=== PATIENT | male | born 1940 | race Caucasian/White ===

== ENCOUNTER 2019-02-02 13:20 | Emergency (ER) | payer MEDICARE ==
[~2019-02-02] VITALS: Ht 177.8 cm; Wt 78.6 kg
[2019-02-02] MEDS ORDERED: albuterol 2.5 MG/3 ML nebule CONTNEB PRN (13:35)
[2019-02-02] MEDS ORDERED: methylPREDNISolone sod succ 125mg/2ml vial IV ONE (13:35)
[2019-02-02] MEDS ORDERED: normal saline 1000ML IV soln IVB ONE (13:35)
[2019-02-02 13:56] LABS: BASOPHILS % (AUTO) 0.3 % (0-1); EOSINOPHILS % (AUTO) 0.9 % (0-6); HEMATOCRIT 39.6 % (42.0-52.0); HEMOGLOBIN 13.4 g/dl (14.0-17.9); LYMPHOCYTES # (AUTO) 0.9 X10'3 (1.1-4.8); MEAN CORPUSCULAR HEMOGLOBIN 29.5 PG (27.0-31.0); MEAN CORPUSCULAR HGB CONC 33.8 g/dL (33.0-36.5); MEAN CORPUSCULAR VOLUME 87.3 FL (78-98); MEAN PLATELET VOLUME 9.3 FL (7.4-10.4); MONOCYTES # (AUTO) 0.9 X10'3 (0-0.9); MONOCYTES % (AUTO) 16.5 % (2-12); NEUTROPHILS # (AUTO) 3.6 X10'3 (1.8-7.7); NEUTROPHILS % (AUTO) 66.3 % (42-75); PLATELET COUNT 262 X10'3 (140-440); RED BLOOD COUNT 4.54 X10'6 (4.70-6.10); RED CELL DISTRIBUTION WIDTH 14.2 % (11.5-14.5); WHITE BLOOD COUNT 5.4 X10'3 (4.5-11.0)
[2019-02-02 14:03] LABS: INR 1.1 INR; PARTIAL THROMBOPLASTIN TIME 27 SECONDS (22-32)
[2019-02-02 14:06] LABS: ALANINE AMINOTRANSFERASE 24 U/L (12-78); ALBUMIN 3.5 G/DL (3.4-5.0); ALBUMIN/GLOBULIN RATIO 1.1 (1.1-1.5); ALKALINE PHOSPHATASE 50 IU/L (46-116); ANION GAP 8 (8-16); ASPARTATE AMINO TRANSFERASE 18 U/L (10-37); BILIRUBIN,TOTAL 0.2 MG/DL (0.1-1.0); BLOOD UREA NITROGEN 17 MG/DL (7-18); BUN/CREATININE RATIO 19.1 (5.4-32.0); CALCIUM 9.5 MG/DL (8.5-10.1); CHLORIDE 103 MMOL/L (99-107); CREATININE 0.89 MG/DL (0.60-1.10); GLUCOSE 99 MG/DL (70-104); POTASSIUM 4.3 MMOL/L (3.5-5.1); SODIUM 136 MMOL/L (135-145); TOTAL CARBON DIOXIDE 25.2 MMOL/L (24-32); TOTAL PROTEIN 6.7 G/DL (6.4-8.2); eGFR 82 ML/MIN
[2019-02-02] MEDS ORDERED: furosemide 10 MG/1 ML 10ml inj IV ONE (14:10)
[2019-02-02 14:35] VITALS: BP 136/77
[2019-02-02] MEDS ORDERED: PRED20TA PO (14:38)
[2019-02-02] MEDS ORDERED: ALBU6.7H INH (14:38)
--- NOTE | 2019-02-02 14:53 | NUR ---
PAGE SENT TO RT FOR BREATHING TX
== END 2019-02-02 16:23 | disposition home or self-care (01) ==
LOC: ER 13:21
DX: J44.1 Chronic obstructive pulmonary disease with (acute) exacerbation (principal); R60.0 Localized edema; I10 Essential (primary) hypertension; Z88.0 Allergy status to penicillin; Z88.6 Allergy status to analgesic agent; Z79.899 Other long term (current) drug therapy
CPT/HCPCS: 36415; 71045; 80053; 83880; 84484; 85025; 85610; 85730; 93005; 94644; 96374; 96375; 99285; J1940; J2930; J7030

== ENCOUNTER 2020-01-20 19:13 | Emergency (ER) | payer MEDICARE ==
[~2020-01-20] VITALS: Ht 177.8 cm; Wt 70.0 kg
[~2020-01-20 19:13] MED LIST: ALBU6.7H9 INH
[2020-01-20 19:22] VITALS: BP 139/73
== END 2020-01-20 20:01 | disposition home or self-care (01) ==
LOC: ER 19:14
DX: R50.9 Fever, unspecified (principal); J44.9 Chronic obstructive pulmonary disease, unspecified; Z88.0 Allergy status to penicillin; Z88.6 Allergy status to analgesic agent
CPT/HCPCS: 99281

== ENCOUNTER 2021-06-22 15:37 | Inpatient (IN) | payer MEDICARE ==
[~2021-06-22] VITALS: Ht 175.3 cm; Wt 62.2 kg
[2021-06-22] MEDS ORDERED: azithromycin/NS 500mg/250ml 250 ML IV ONE (16:30)
[2021-06-22] MEDS ORDERED: CefTRIAXone/D5W-Rocephin 1gm 50 ML IV ONE (16:30)
[2021-06-22 16:37] LABS: BASOPHILS % (AUTO) 0 % (0-1); EOSINOPHILS % (AUTO) 0.2 % (0-6); HEMATOCRIT 29.6 % (42.0-52.0); HEMOGLOBIN 9.5 g/dl (14.0-17.9); LYMPHOCYTES # (AUTO) 0.9 X10'3 (1.1-4.8); LYMPHOCYTES % (AUTO) 6.6 % (21-51); MEAN CORPUSCULAR HEMOGLOBIN 27.3 PG (27.0-31.0); MEAN CORPUSCULAR HGB CONC 32.2 g/dL (33.0-36.5); MEAN CORPUSCULAR VOLUME 84.9 FL (78-98); MEAN PLATELET VOLUME 8.7 FL (7.4-10.4); MONOCYTES # (AUTO) 2.1 X10'3 (0-0.9); MONOCYTES % (AUTO) 16.5 % (2-12); NEUTROPHILS # (AUTO) 9.9 X10'3 (1.8-7.7); NEUTROPHILS % (AUTO) 76.7 % (42-75); PLATELET COUNT 361 X10'3 (140-440); RED BLOOD COUNT 3.48 X10'6 (4.70-6.10); RED CELL DISTRIBUTION WIDTH 14.9 % (11.5-14.5); WHITE BLOOD COUNT 12.9 X10'3 (4.5-11.0)
[2021-06-22 17:03] LABS: ALANINE AMINOTRANSFERASE 20 U/L (12-78); ALBUMIN 2.5 G/DL (3.4-5.0); ALBUMIN/GLOBULIN RATIO 0.6 (1.1-1.5); ALKALINE PHOSPHATASE 78 IU/L (46-116); ANION GAP 6 (8-16); ASPARTATE AMINO TRANSFERASE 23 U/L (10-37); BILIRUBIN,TOTAL 0.3 MG/DL (0.1-1.0); BLOOD UREA NITROGEN 14 MG/DL (7-18); BUN/CREATININE RATIO 13.7 (5.4-32.0); CALCIUM 8.9 MG/DL (8.5-10.1); CHLORIDE 98 MMOL/L (99-107); CREATININE 1.02 MG/DL (0.60-1.10); GLUCOSE 98 MG/DL (70-104); POTASSIUM 4.8 MMOL/L (3.5-5.1); SODIUM 126 MMOL/L (135-145); TOTAL CARBON DIOXIDE 22.4 MMOL/L (24-32); TOTAL PROTEIN 6.7 G/DL (6.4-8.2); eGFR 70 ML/MIN
[2021-06-22] MEDS ORDERED: normal saline 1000ml 1,000 ML IV ONE (17:15)
[2021-06-22] MEDS ORDERED: ondansetron/PF 4mg/2ml inj IV PRN (19:40)
[2021-06-22] MEDS ORDERED: acetaminophen 325mg tablet PO PRN ×2 (19:40)
[2021-06-22] MEDS ORDERED: HYDROmorphone inj. 0.5 MG/0.5 ML DISP.SYRIN IV PRN (19:40)
[2021-06-22] MEDS ORDERED: morphine 2 MG/ML inj. syringe IV PRN (19:40)
[2021-06-22] MEDS ORDERED: acetaminophen 650mg rectal suppository RC PRN (19:40)
[2021-06-22] MEDS ORDERED: ondansetron 4mg rapidly disintigrating tab PO PRN (19:40)
[2021-06-22] MEDS ORDERED: bisacodyl 10mg suppository rectal RC PRN (19:40)
[2021-06-22] MEDS ORDERED: mag hydrox/Alum hydrox/simeth 30ml oral suspension PO PRN (19:40)
[2021-06-22] MEDS ORDERED: diphenhydrAMINE 50 mg/ml inj IV PRN (19:40)
[2021-06-22 20:02] LABS: D-DIMER 3.61 MG/L FEU (0-0.50); PARTIAL THROMBOPLASTIN TIME 30 SECONDS (22-32)
[2021-06-22 20:08] LABS: HEMOGLOBIN A1C 6.8 % (4.5-6.2)
[2021-06-22 20:10] LABS: CREATINE KINASE 317 U/L (39-308); LIPASE 107 U/L (73-393); PHOSPHORUS 3.5 MG/DL (2.3-4.5)
[2021-06-22] MEDS: heparin, porcine 5000 units/ml vial SQ SCH (20:44)
[2021-06-22] MEDS: docusate sod 100mg capsule PO SCH (20:44)
[2021-06-22] MEDS: lisinopril 20mg tablet PO SCH (20:44)
[2021-06-22] MEDS: normal saline 1000ml 1,000 ML IV SCH (20:45)
[2021-06-22] MEDS ORDERED: SYN0.088T PO (21:04)
[2021-06-22] MEDS ORDERED: ALFU10TA10 PO (21:04)
[2021-06-22] MEDS ORDERED: BUDE10.2 INH (21:04)
[2021-06-22] MEDS ORDERED: PANT20TA18 PO (21:04)
[2021-06-22] MEDS ORDERED: AMLO2.5T2 PO (21:04)
[2021-06-22] MEDS ORDERED: TIOT4MIS5 INH (21:04)
[2021-06-22] MEDS ORDERED: LOSA50TA3 PO (21:04)
[2021-06-22] MEDS ORDERED: DOXY-1 PO (21:04)
[2021-06-22] MEDS ORDERED: FINA5TAB42 PO (21:04)
[2021-06-22] MEDS: ipratropium/albuterol 3ml nebule NEB SCH (22:59)
[2021-06-23] MEDS ORDERED: iohexol 350MG/ML 100ml bottle IV ONE (01:17)
[2021-06-23 01:57] LABS: BASOPHILS % (AUTO) 0.1 % (0-1); EOSINOPHILS % (AUTO) 0.1 % (0-6); HEMATOCRIT 34.1 % (42.0-52.0); HEMOGLOBIN 11.4 g/dl (14.0-17.9); LYMPHOCYTES # (AUTO) 1.4 X10'3 (1.1-4.8); LYMPHOCYTES % (AUTO) 7.9 % (21-51); MEAN CORPUSCULAR HEMOGLOBIN 27.8 PG (27.0-31.0); MEAN CORPUSCULAR HGB CONC 33.4 g/dL (33.0-36.5); MEAN CORPUSCULAR VOLUME 83.3 FL (78-98); MONOCYTES # (AUTO) 3.3 X10'3 (0-0.9); MONOCYTES % (AUTO) 18.6 % (2-12); NEUTROPHILS # (AUTO) 13.2 X10'3 (1.8-7.7); NEUTROPHILS % (AUTO) 73.3 % (42-75); PLATELET COUNT 386 X10'3 (140-440); RED BLOOD COUNT 4.09 X10'6 (4.70-6.10); RED CELL DISTRIBUTION WIDTH 14.7 % (11.5-14.5)
[2021-06-23 02:07] LABS: ALANINE AMINOTRANSFERASE 26 U/L (12-78); ALBUMIN 2.5 G/DL (3.4-5.0); ALBUMIN/GLOBULIN RATIO 0.6 (1.1-1.5); ALKALINE PHOSPHATASE 80 IU/L (46-116); ANION GAP 12 (8-16); ASPARTATE AMINO TRANSFERASE 35 U/L (10-37); BILIRUBIN,TOTAL 0.3 MG/DL (0.1-1.0); BLOOD UREA NITROGEN 14 MG/DL (7-18); BUN/CREATININE RATIO 13.1 (5.4-32.0); CALCIUM 8.7 MG/DL (8.5-10.1); CHLORIDE 99 MMOL/L (99-107); CHOL/HDL RATIO 2.7 (0.00-4.99); CHOLESTEROL 121 MG/DL (0-200); CREATININE 1.07 MG/DL (0.60-1.10); GLUCOSE 121 MG/DL (70-104); HDL CHOLESTEROL 45 MG/DL (35-60); LDL CHOLESTEROL 64 MG/DL (50-100); POTASSIUM 4.7 MMOL/L (3.5-5.1); SODIUM 134 MMOL/L (135-145); TOTAL CARBON DIOXIDE 23.1 MMOL/L (24-32); TOTAL PROTEIN 6.9 G/DL (6.4-8.2); TRIGLYCERIDES 68 MG/DL (20-135); eGFR 66 ML/MIN
[2021-06-23] MEDS: ipratropium/albuterol 3ml nebule NEB SCH ×7 (02:57→22:32)
[2021-06-23] MEDS: normal saline 1000ml 1,000 ML IV SCH ×2 (05:54→17:12)
[2021-06-23] MEDS ORDERED: CefTRIAXone/D5W-Rocephin 1gm 50 ML IV SCH (08:00)
[2021-06-23] MEDS: docusate sod 100mg capsule PO SCH ×2 (08:03→21:49)
[2021-06-23] MEDS: pantoprazole 40mg Tablet.DR PO SCH (08:03)
[2021-06-23] MEDS: atorvastatin 10mg tablet PO SCH (08:03)
[2021-06-23] MEDS: azithromycin/NS 500mg/250ml 250 ML IV SCH (08:03)
[2021-06-23] MEDS: nitroGLYCERIN 0.4mg/hour patch TD SCH (08:04)
[2021-06-23] MEDS: heparin, porcine 5000 units/ml vial SQ SCH ×2 (08:04→21:52)
[2021-06-23] MEDS: lisinopril 20mg tablet PO SCH (08:04)
[2021-06-23] MEDS ORDERED: magnesium 4gm in 100ml NS 100 ML IV PRN (08:55)
[2021-06-23] MEDS ORDERED: potassium Cl 20 mEq SR tablet PO PRN ×2 (08:55)
[2021-06-23] MEDS ORDERED: potassium Cl 40MEQ/1/2NS 520ml 520 ML IV PRN (08:55)
[2021-06-23] MEDS ORDERED: magnesium Cl slow-release 64mg tablet PO PRN (08:55)
[2021-06-23] MEDS: losartan 25mg tablet PO SCH (09:33)
[2021-06-23] MEDS: levoTHYROXINE 88mcg tablet PO SCH (09:33)
[2021-06-23] MEDS: amLODIPine 2.5mg tablet PO SCH (09:33)
[2021-06-23] MEDS: tamsulosin 0.4mg capsule PO SCH (09:33)
--- NOTE | 2021-06-23 12:48 | NUR ---
PT HAD 02 SATS OF 87% ON 3L NC. PATIENTS O2 TURNED UP TO 4L NC WITH O2 SATS OF 89-90%. DR. GUZMAN NOTIFIED AND AN ABG WAS ORDERED PER HIS REQUEST.
[2021-06-23 13:03] LABS: COLOR,URINE YELLOW (Yellow); UA COLLECTION TYPE CLN CATCH MIDSTREAM
[2021-06-23 13:05] LABS: CLARITY,URINE CLEAR (Clear); GLUCOSE, URINE NEGATIVE (Neg); KETONES,URINE NEGATIVE (Neg); NITRITES, URINE NEGATIVE (Neg); OCCULT BLOOD,URINE NEGATIVE (Neg); PROTEIN,URINE TRACE mg/dl (Neg); UROBILINOGEN,URINE 0.2 E.U/dL (0.2-1.0)
[2021-06-23 13:06] LABS: ABG BASE EXCESS 0.7 mmol/L (-2.0-2.0); ABG HCO3 23.1 mmol/L (22.0-26.0); ABG OXYGEN SATURATION 91.4 % (94-97); ABG PCO2 (T) 29.9 mmHg (35.0-48.0); ABG PO2 (T) 62.9 mmHg (75.0-100.0); ALLEN'S TEST POSITIVE; FCOHb 0.3 % (0.0-3.9); FLOW 4 L/min; FO2Hb 91.1 % (94-97); TOTAL HEMOGLOBIN 11.3 G/dl (14.0-18.0)
[2021-06-23 13:06] LABS: LEUKOCYTE ESTERASE ,URINE NEGATIVE (Neg)
[2021-06-23 13:07] LABS: BACTERIA,URINE NONE SEEN /HPF (Neg); FINE GRANULAR CAST 0-3 /LPF (NEGATIVE); MUCUS STRANDS NONE SEEN /LPF (Neg); RBC,URINE NONE SEEN /HPF (0-2); SQUAMOUS EPITHELIAL CELL,UR FEW /LPF (FEW); WBC,URINE 0-4 /HPF (0-4)
[2021-06-23] MEDS ORDERED: methylPREDNISolone sod succ 125mg/2ml vial IV ONE (13:45)
[2021-06-23] MEDS ORDERED: ipratropium 0.5 MG/2.5ML nebule IH SCH (14:00)
[2021-06-23] MEDS ORDERED: methylPREDNISolone sod succ 125mg/2ml vial IV SCH ×2 (14:00→20:00)
[2021-06-23] MEDS: cefepime 1GM/NS ADD-VANTAGE 100 ML IV SCH ×2 (14:09→21:49)
[2021-06-23] MEDS: vancomycin/NS 1 GM ADD-VANTAGE 250 ML IV SCH (14:58)
--- NOTE | 2021-06-23 16:00 | NUR ---
I have received report from ADEOLA Brunner and had the opportunity to ask questions and awaiting pts arrival from ED.
[2021-06-23 16:20] VITALS: BP 123/55
--- NOTE | 2021-06-23 16:20 | NUR ---
Patient arrived from ED, ambulated from gurney to bed with standby assist. A&Ox4, BLL, SRx2CL within reach Addendum: 06/23/21 at 1646 by Zee Yoder RN within reach. First set of vitals done, MRSA collected, 2 RN skin check complete.
[2021-06-23 18:19] VITALS: BP 139/49
--- NOTE | 2021-06-23 18:38 | NUR ---
Problems reprioritized. Patient report given, questions answered & plan of care reviewed with ADEOLA Sheehan. Pt laying in bed, no signs of distress noted at this time. All pt needs met at this time.
--- NOTE | 2021-06-23 18:41 | NUR ---
Patient in room PCU 3012. I have received report from Zee MIR and had the opportunity to ask questions and assume patient care.
[2021-06-23] MEDS: K and/or MAG REPLACEMENT MC SCH (20:00)
[2021-06-23] MEDS ORDERED: albuterol 2.5 MG/3 ML nebule NEB SCH (20:00)
[2021-06-23] MEDS ORDERED: TIOTROPIUM BROMIDE 1.25 MCG INH SCH (20:00)
[2021-06-23] MEDS ORDERED: finasteride 5mg tablet PO SCH (21:00)
[2021-06-23] MEDS: methylPREDNISolone sod succ/PF 40mg inj. IV SCH (21:50)
[2021-06-23] MEDS: lactobacillus rhamnosus 10,000 MMU CELLS/CAPSULE PO SCH (21:50)
[2021-06-23] MEDS: diatr meglu/diatrizoate 30ml oral sol.-(3 dose) bottle PO SCH (22:02)
[2021-06-23 22:15] VITALS: BP 128/61
[2021-06-23] MEDS: budesonide 0.5mg/2ml UD nebule IH SCH (22:31)
[2021-06-24] VITALS (7 sets, daily range): BP systolic 111–154; BP diastolic 59–76
[2021-06-24] MEDS: vancomycin/NS 1 GM ADD-VANTAGE 250 ML IV SCH ×2 (01:40→19:28)
[2021-06-24] MEDS: ipratropium/albuterol 3ml nebule NEB SCH ×6 (03:14→22:45)
[2021-06-24 06:41] LABS: BASOPHILS % (AUTO) 0.1 % (0-1); EOSINOPHILS % (AUTO) 0 % (0-6); HEMOGLOBIN 10.2 g/dl (14.0-17.9); LYMPHOCYTES # (AUTO) 0.4 X10'3 (1.1-4.8); LYMPHOCYTES % (AUTO) 3.3 % (21-51); MEAN CORPUSCULAR HEMOGLOBIN 27.6 PG (27.0-31.0); MEAN CORPUSCULAR VOLUME 83.5 FL (78-98); MEAN PLATELET VOLUME 8.6 FL (7.4-10.4); MONOCYTES # (AUTO) 0.5 X10'3 (0-0.9); MONOCYTES % (AUTO) 4.6 % (2-12); NEUTROPHILS # (AUTO) 10.5 X10'3 (1.8-7.7); PLATELET COUNT 336 X10'3 (140-440); RED BLOOD COUNT 3.71 X10'6 (4.70-6.10); RED CELL DISTRIBUTION WIDTH 14.6 % (11.5-14.5); WHITE BLOOD COUNT 11.4 X10'3 (4.5-11.0)
[2021-06-24 06:54] LABS: ALANINE AMINOTRANSFERASE 23 U/L (12-78); ALBUMIN 2.2 G/DL (3.4-5.0); ALBUMIN/GLOBULIN RATIO 0.6 (1.1-1.5); ALKALINE PHOSPHATASE 67 IU/L (46-116); ANION GAP 9 (8-16); ASPARTATE AMINO TRANSFERASE 37 U/L (10-37); BILIRUBIN,TOTAL 0.3 MG/DL (0.1-1.0); BLOOD UREA NITROGEN 13 MG/DL (7-18); BUN/CREATININE RATIO 13.1 (5.4-32.0); CALCIUM 8.6 MG/DL (8.5-10.1); CHLORIDE 104 MMOL/L (99-107); CREATININE 0.99 MG/DL (0.60-1.10); GLUCOSE 171 MG/DL (70-104); MAGNESIUM 2.1 MG/DL (1.5-2.4); PHOSPHORUS 2.3 MG/DL (2.3-4.5); POTASSIUM 3.9 MMOL/L (3.5-5.1); SODIUM 135 MMOL/L (135-145); TOTAL CARBON DIOXIDE 21.9 MMOL/L (24-32); eGFR 73 ML/MIN
--- NOTE | 2021-06-24 07:09 | NUR ---
Problems reprioritized. Patient report given, questions answered & plan of care reviewed with Pat RN.
[2021-06-24] MEDS: diatr meglu/diatrizoate 30ml oral sol.-(3 dose) bottle PO SCH ×2 (07:46→10:44)
[2021-06-24] MEDS: methylPREDNISolone sod succ/PF 40mg inj. IV SCH ×3 (07:48→20:00)
[2021-06-24] MEDS: nitroGLYCERIN 0.4mg/hour patch TD SCH (07:49)
[2021-06-24] MEDS: levoTHYROXINE 88mcg tablet PO SCH (07:49)
[2021-06-24] MEDS: losartan 25mg tablet PO SCH (07:50)
[2021-06-24] MEDS: amLODIPine 2.5mg tablet PO SCH (07:51)
[2021-06-24] MEDS: tamsulosin 0.4mg capsule PO SCH (07:52)
[2021-06-24] MEDS: lactobacillus rhamnosus 10,000 MMU CELLS/CAPSULE PO SCH ×2 (07:52→19:29)
[2021-06-24] MEDS: atorvastatin 10mg tablet PO SCH (07:52)
[2021-06-24] MEDS: pantoprazole 40mg Tablet.DR PO SCH (07:53)
[2021-06-24] MEDS: lisinopril 20mg tablet PO SCH (08:00)
[2021-06-24] MEDS: docusate sod 100mg capsule PO SCH ×2 (08:00→20:00)
[2021-06-24] MEDS: K and/or MAG REPLACEMENT MC SCH ×2 (08:00→20:00)
[2021-06-24] MEDS ORDERED: non-formulary drug (Pantoprazole Sodium (Protonix) 2 TAB) PO SCH (08:00)
[2021-06-24] MEDS: budesonide 0.5mg/2ml UD nebule IH SCH ×2 (08:02→18:49)
[2021-06-24] MEDS: cefepime 1GM/NS ADD-VANTAGE 100 ML IV SCH ×2 (08:05→21:57)
--- NOTE | 2021-06-24 08:20 | NUR ---
PATIENT SOB WITH EXERTION , O2 SAT WAS 90% ON 2LITERS PER N/C NOW DESATURATE TO 84%. RT AT BEDSIDE PLACED PATIENT ON SALTER 14 LITERS.SAT NOW AT 90%. Addendum: 06/24/21 at 1340 by Deana Hodge RN Amended: Links added.
[2021-06-24] MEDS: heparin, porcine 5000 units/ml vial SQ SCH ×2 (08:21→19:30)
[2021-06-24] MEDS: azithromycin/NS 500mg/250ml 250 ML IV SCH (08:26)
[2021-06-24] MEDS ORDERED: iohexol 300mg/ml 100ml inj. ONE (10:43)
[2021-06-24 15:39] LABS: ABG BASE EXCESS -0.4 mmol/L (-2.0-2.0); ABG OXYGEN SATURATION 90.9 % (94-97); ABG PCO2 (T) 28.8 mmHg (35.0-48.0); ABG PO2 (T) 61.5 mmHg (75.0-100.0); ALLEN'S TEST POSITIVE; FCOHb 0.3 % (0.0-3.9); FLOW 10 L/min; FMetHb 0.4 % (0.0-1.5); FO2Hb 90.3 % (94-97); TOTAL HEMOGLOBIN 11.5 G/dl (14.0-18.0)
--- NOTE | 2021-06-24 15:47 | NUR ---
PAGER ID: [phone] MESSAGE: PLEASE REVIEW [id number] BUTCH LOPEZ. THANK YOU RADHA MENJIVAR
[2021-06-24] MEDS: diphenhydrAMINE 25mg capsule PO PRN (18:37)
--- NOTE | 2021-06-24 18:47 | NUR ---
Patient in room PCU 3012. I have received report from Michaela RN and had the opportunity to ask questions and assume patient care.
[2021-06-24] MEDS: normal saline 1000ml 1,000 ML IV SCH ×2 (18:57→19:28)
--- NOTE | 2021-06-24 21:59 | NUR ---
timing issues with solumedrol lead to emar entering the medication I administered at 1999 under the 1400 dose. nonadministered the 1999 subsequently to line up with the frequency
[2021-06-24] MEDS: finasteride 5mg tablet PO SCH (22:27)
[2021-06-25 02:35] VITALS: BP 166/78
[2021-06-25] MEDS: ipratropium/albuterol 3ml nebule NEB SCH ×6 (03:09→23:28)
[2021-06-25] MEDS: methylPREDNISolone sod succ/PF 40mg inj. IV SCH ×4 (03:26→23:31)
[2021-06-25] MEDS: magnesium hydroxide 30ml (MOM) UD suspension PO PRN (03:26)
[2021-06-25] MEDS: vancomycin/NS 1 GM ADD-VANTAGE 250 ML IV SCH ×2 (03:26→14:00)
--- NOTE | 2021-06-25 06:16 | NUR ---
Patient in room U 3028. I have received report from Aguila MIR and had the opportunity to ask questions and assume patient care. Patient is sitting up in bed and in no acute distress.
[2021-06-25 06:36] LABS: BASOPHILS % (AUTO) 0.2 % (0-1); EOSINOPHILS % (AUTO) 0 % (0-6); HEMATOCRIT 33.8 % (42.0-52.0); HEMOGLOBIN 11.1 g/dl (14.0-17.9); LYMPHOCYTES # (AUTO) 0.4 X10'3 (1.1-4.8); LYMPHOCYTES % (AUTO) 1.9 % (21-51); MEAN CORPUSCULAR HEMOGLOBIN 27.5 PG (27.0-31.0); MEAN CORPUSCULAR HGB CONC 32.9 g/dL (33.0-36.5); MEAN CORPUSCULAR VOLUME 83.6 FL (78-98); MEAN PLATELET VOLUME 8.9 FL (7.4-10.4); MONOCYTES # (AUTO) 1.4 X10'3 (0-0.9); MONOCYTES % (AUTO) 7.1 % (2-12); NEUTROPHILS # (AUTO) 18.4 X10'3 (1.8-7.7); NEUTROPHILS % (AUTO) 90.8 % (42-75); PLATELET COUNT 395 X10'3 (140-440); RED BLOOD COUNT 4.04 X10'6 (4.70-6.10); WHITE BLOOD COUNT 20.3 X10'3 (4.5-11.0)
--- NOTE | 2021-06-25 06:47 | NUR ---
Problems reprioritized. Patient report given, questions answered & plan of care reviewed with Chelsie MIR.
[2021-06-25 06:55] LABS: ALANINE AMINOTRANSFERASE 35 U/L (12-78); ALBUMIN 2.4 G/DL (3.4-5.0); ALBUMIN/GLOBULIN RATIO 0.6 (1.1-1.5); ALKALINE PHOSPHATASE 69 IU/L (46-116); ANION GAP 11 (8-16); ASPARTATE AMINO TRANSFERASE 58 U/L (10-37); BILIRUBIN,TOTAL 0.3 MG/DL (0.1-1.0); BLOOD UREA NITROGEN 16 MG/DL (7-18); BUN/CREATININE RATIO 15.5 (5.4-32.0); CALCIUM 8.7 MG/DL (8.5-10.1); CHLORIDE 102 MMOL/L (99-107); CREATININE 1.03 MG/DL (0.60-1.10); GLUCOSE 142 MG/DL (70-104); SODIUM 135 MMOL/L (135-145); TOTAL PROTEIN 6.5 G/DL (6.4-8.2); eGFR 69 ML/MIN
[2021-06-25 07:00] VITALS: BP 157/73
[2021-06-25 07:05] LABS: MAGNESIUM 2.1 MG/DL (1.5-2.4); PHOSPHORUS 2.6 MG/DL (2.3-4.5)
[2021-06-25 07:07] LABS: VANCOMYCIN,TROUGH 41.3 UG/ML (6.0-14.0)
[2021-06-25] MEDS: budesonide 0.5mg/2ml UD nebule IH SCH ×2 (07:20→20:15)
[2021-06-25 07:56] LABS: PLATELET ESTIMATE NORMAL; POIKILOCYTOSIS FEW; POLYCHROMASIA FEW; TOTAL CELLS COUNTED 100
[2021-06-25] MEDS: docusate sod 100mg capsule PO SCH ×2 (07:59→20:00)
[2021-06-25] MEDS: pantoprazole 40mg Tablet.DR PO SCH (07:59)
[2021-06-25] MEDS: cefepime 1GM/NS ADD-VANTAGE 100 ML IV SCH ×2 (07:59→23:36)
[2021-06-25] MEDS: K and/or MAG REPLACEMENT MC SCH ×2 (07:59→20:00)
[2021-06-25] MEDS: losartan 25mg tablet PO SCH (07:59)
[2021-06-25] MEDS: lactobacillus rhamnosus 10,000 MMU CELLS/CAPSULE PO SCH ×2 (08:00→20:00)
[2021-06-25] MEDS: lisinopril 20mg tablet PO SCH (08:00)
[2021-06-25] MEDS: nitroGLYCERIN 0.4mg/hour patch TD SCH (08:00)
[2021-06-25] MEDS: tamsulosin 0.4mg capsule PO SCH (08:00)
[2021-06-25] MEDS: atorvastatin 10mg tablet PO SCH (08:00)
[2021-06-25] MEDS: azithromycin/NS 500mg/250ml 250 ML IV SCH (08:00)
[2021-06-25] MEDS: levoTHYROXINE 88mcg tablet PO SCH (08:00)
[2021-06-25] MEDS: amLODIPine 2.5mg tablet PO SCH (08:00)
[2021-06-25] MEDS: heparin, porcine 5000 units/ml vial SQ SCH ×2 (08:01→22:28)
[2021-06-25] MEDS: normal saline 1000ml 1,000 ML IV SCH (08:17)
[2021-06-25 11:00] VITALS: BP 142/68
--- NOTE | 2021-06-25 12:49 | NUR ---
Patient given flutter and IS and has been educated on their use and informed he should use them every hour.
[2021-06-25] MEDS ORDERED: VANCOMYCIN LEVEL IV ONE (13:30)
--- NOTE | 2021-06-25 13:51 | NUR ---
Dr. Hoang was notified at bedside that pt has no IV access and that we are working to get a new line. Between me and contract manager we poked him 6 times with no success.
[2021-06-25 15:00] VITALS: BP 143/63
[2021-06-25 18:00] VITALS: BP 157/71
--- NOTE | 2021-06-25 18:28 | NUR ---
Problems reprioritized. Patient report given, questions answered & plan of care reviewed with Sweta MIR
--- NOTE | 2021-06-25 18:37 | NUR ---
Patient in room U 3028. I have received report from ALMAZ MIR and had the opportunity to ask questions and assume patient care. Addendum: 06/25/21 at 1837 by Sweta Henry RN Amended: Links added.
[2021-06-25 22:00] VITALS: BP 146/62
--- NOTE | 2021-06-25 23:08 | NUR ---
PT HAD NUMEROUS IV STICKS DAY SHIFT WITH 2 rN'S, I ATTEMPTED X2 WITHOUT SUCCESS VEINS VERY FRAGILE. EXAMINATION PROCTOR NOTIFIED AND CALLED NURSING RADIATION ONCOLOGY NURSE TO ATTEMPT. MD AWARE AND PT NEEDS IV FOR ANTIBIOTIC THERAPY.
--- NOTE | 2021-06-26 00:58 | NUR ---
PT AWAKE IV ANTIBIOTICS INFUSING NO COMPLAINTS.
[2021-06-26 02:00] VITALS: BP 148/77
[2021-06-26] MEDS: vancomycin/NS 1 GM ADD-VANTAGE 250 ML IV SCH ×2 (02:21→13:36)
[2021-06-26] MEDS: ipratropium/albuterol 3ml nebule NEB SCH ×5 (03:25→20:31)
--- NOTE | 2021-06-26 05:08 | NUR ---
SHARLENE COLORED SPUTUM OBTAINED LABELED AND SENT TO LAB.
--- NOTE | 2021-06-26 06:12 | NUR ---
Problems reprioritized. Patient report given, questions answered & plan of care reviewed with ADEOLA MUSE. Addendum: 06/26/21 at 0614 by Sweta Henry RN Amended: Links added.
[2021-06-26 06:16] LABS: BASOPHILS % (AUTO) 0.1 % (0-1); EOSINOPHILS % (AUTO) 0 % (0-6); HEMATOCRIT 34.1 % (42.0-52.0); HEMOGLOBIN 11.1 g/dl (14.0-17.9); LYMPHOCYTES # (AUTO) 0.3 X10'3 (1.1-4.8); LYMPHOCYTES % (AUTO) 1.5 % (21-51); MEAN CORPUSCULAR HEMOGLOBIN 27.6 PG (27.0-31.0); MEAN CORPUSCULAR HGB CONC 32.5 g/dL (33.0-36.5); MEAN CORPUSCULAR VOLUME 84.8 FL (78-98); MONOCYTES # (AUTO) 1.8 X10'3 (0-0.9); MONOCYTES % (AUTO) 9.1 % (2-12); NEUTROPHILS # (AUTO) 18.1 X10'3 (1.8-7.7); NEUTROPHILS % (AUTO) 89.3 % (42-75); PLATELET COUNT 350 X10'3 (140-440); RED BLOOD COUNT 4.02 X10'6 (4.70-6.10); RED CELL DISTRIBUTION WIDTH 14.8 % (11.5-14.5); WHITE BLOOD COUNT 20.2 X10'3 (4.5-11.0)
[2021-06-26 06:28] LABS: ALANINE AMINOTRANSFERASE 43 U/L (12-78); ALBUMIN 2.4 G/DL (3.4-5.0); ALBUMIN/GLOBULIN RATIO 0.6 (1.1-1.5); ALKALINE PHOSPHATASE 66 IU/L (46-116); ANION GAP 10 (8-16); ASPARTATE AMINO TRANSFERASE 71 U/L (10-37); BILIRUBIN,TOTAL 0.4 MG/DL (0.1-1.0); BLOOD UREA NITROGEN 20 MG/DL (7-18); BUN/CREATININE RATIO 20.4 (5.4-32.0); CALCIUM 8.5 MG/DL (8.5-10.1); CHLORIDE 98 MMOL/L (99-107); CREATININE 0.98 MG/DL (0.60-1.10); GLUCOSE 125 MG/DL (70-104); MAGNESIUM 2.2 MG/DL (1.5-2.4); POTASSIUM 4.3 MMOL/L (3.5-5.1); SODIUM 131 MMOL/L (135-145); TOTAL CARBON DIOXIDE 23.3 MMOL/L (24-32); TOTAL PROTEIN 6.2 G/DL (6.4-8.2); eGFR 73 ML/MIN
[2021-06-26 07:00] VITALS: BP 142/75
[2021-06-26 07:08] LABS: PLATELET ESTIMATE NORMAL; POLYCHROMASIA FEW; TOTAL CELLS COUNTED 100
[2021-06-26] MEDS: budesonide 0.5mg/2ml UD nebule IH SCH ×2 (07:50→20:31)
[2021-06-26] MEDS: K and/or MAG REPLACEMENT MC SCH ×2 (08:00→20:00)
[2021-06-26] MEDS: nitroGLYCERIN 0.4mg/hour patch TD SCH (08:00)
[2021-06-26] MEDS: docusate sod 100mg capsule PO SCH ×2 (08:00→20:49)
[2021-06-26] MEDS: azithromycin/NS 500mg/250ml 250 ML IV SCH (08:00)
[2021-06-26] MEDS: levoTHYROXINE 88mcg tablet PO SCH (10:18)
[2021-06-26] MEDS: tamsulosin 0.4mg capsule PO SCH (10:18)
[2021-06-26] MEDS: pantoprazole 40mg Tablet.DR PO SCH (10:18)
[2021-06-26] MEDS: cefepime 1GM/NS ADD-VANTAGE 100 ML IV SCH ×2 (10:18→20:48)
[2021-06-26] MEDS: lactobacillus rhamnosus 10,000 MMU CELLS/CAPSULE PO SCH ×2 (10:19→20:48)
[2021-06-26] MEDS: atorvastatin 10mg tablet PO SCH (10:19)
[2021-06-26] MEDS: amLODIPine 2.5mg tablet PO SCH (10:19)
[2021-06-26] MEDS: losartan 25mg tablet PO SCH (10:19)
[2021-06-26] MEDS: lisinopril 20mg tablet PO SCH (10:20)
[2021-06-26] MEDS: heparin, porcine 5000 units/ml vial SQ SCH ×2 (10:20→20:50)
[2021-06-26] MEDS: methylPREDNISolone sod succ/PF 40mg inj. IV SCH ×3 (10:21→23:18)
[2021-06-26 11:00] VITALS: BP 151/79
[2021-06-26 15:00] VITALS: BP 143/74
[2021-06-26 18:00] VITALS: BP 146/68
--- NOTE | 2021-06-26 18:17 | NUR ---
Patient in room PCU 3028. I have received report from Sweta MIR and had the opportunity to ask questions and assume patient care. Patient eating dinner , at bedside and in no acute distress.
--- NOTE | 2021-06-26 18:20 | NUR ---
Patient in room U 3028. I have received report from ALMAZ MIR and had the opportunity to ask questions and assume patient care. Addendum: 06/26/21 at 1821 by Sweta Henry RN Amended: Links added.
[2021-06-26] MEDS: diphenhydrAMINE 25mg capsule PO PRN (20:49)
[2021-06-26] MEDS: finasteride 5mg tablet PO SCH (21:00)
[2021-06-26 22:00] VITALS: BP 158/72
--- NOTE | 2021-06-26 23:22 | NUR ---
pt dozed off and awoke confused had voided in the urinal and reorientated.
[2021-06-27] MEDS: ipratropium/albuterol 3ml nebule NEB SCH ×7 (00:06→23:38)
--- NOTE | 2021-06-27 03:00 | NUR ---
Iv infiltrated pt had it kinked and it leaked. unable to hang vanco due to this.
--- NOTE | 2021-06-27 03:00 | NUR ---
nursing solid waste division supervisor notified had taken 11 sticks day before to get the iv with 5 people. She got it right forearm x1 stick. tolerated well. dressed and after completion and dc of right wrist iv cath intact bag of iv vanco started at this time.
[2021-06-27] MEDS: vancomycin/NS 1 GM ADD-VANTAGE 250 ML IV SCH ×2 (03:26→13:47)
[2021-06-27] MEDS: normal saline 1000ml 1,000 ML IV SCH (04:42)
--- NOTE | 2021-06-27 05:00 | NUR ---
PT CONFUSED DURING THE NIGHT NOW NOTICED MENTATION IMPROVING. ABLE TO ANSWER QUESTIONS APPROPRIATELY.
[2021-06-27 06:39] LABS: ALANINE AMINOTRANSFERASE 50 U/L (12-78); ALBUMIN 2.4 G/DL (3.4-5.0); ALBUMIN/GLOBULIN RATIO 0.7 (1.1-1.5); ALKALINE PHOSPHATASE 67 IU/L (46-116); ANION GAP 7 (8-16); ASPARTATE AMINO TRANSFERASE 69 U/L (10-37); BILIRUBIN,TOTAL 0.4 MG/DL (0.1-1.0); BLOOD UREA NITROGEN 21 MG/DL (7-18); BUN/CREATININE RATIO 21.6 (5.4-32.0); CALCIUM 8.5 MG/DL (8.5-10.1); CHLORIDE 99 MMOL/L (99-107); CREATININE 0.97 MG/DL (0.60-1.10); GLUCOSE 128 MG/DL (70-104); MAGNESIUM 2.1 MG/DL (1.5-2.4); PHOSPHORUS 3.3 MG/DL (2.3-4.5); POTASSIUM 4.3 MMOL/L (3.5-5.1); SODIUM 130 MMOL/L (135-145); TOTAL CARBON DIOXIDE 23.9 MMOL/L (24-32); eGFR 74 ML/MIN
[2021-06-27 06:45] LABS: BASOPHILS % (AUTO) 0.2 % (0-1); EOSINOPHILS % (AUTO) 0 % (0-6); HEMATOCRIT 34.2 % (42.0-52.0); HEMOGLOBIN 11.3 g/dl (14.0-17.9); LYMPHOCYTES # (AUTO) 0.3 X10'3 (1.1-4.8); LYMPHOCYTES % (AUTO) 3.1 % (21-51); MEAN CORPUSCULAR HEMOGLOBIN 28.2 PG (27.0-31.0); MEAN CORPUSCULAR HGB CONC 33.1 g/dL (33.0-36.5); MEAN CORPUSCULAR VOLUME 85.1 FL (78-98); MONOCYTES # (AUTO) 0.6 X10'3 (0-0.9); MONOCYTES % (AUTO) 5.3 % (2-12); NEUTROPHILS % (AUTO) 91.4 % (42-75); PLATELET COUNT 291 X10'3 (140-440); RED BLOOD COUNT 4.01 X10'6 (4.70-6.10); RED CELL DISTRIBUTION WIDTH 14.7 % (11.5-14.5); WHITE BLOOD COUNT 10.9 X10'3 (4.5-11.0)
--- NOTE | 2021-06-27 06:47 | NUR ---
Problems reprioritized. Patient report given, questions answered & plan of care reviewed with ALMAZ MIR. Addendum: 06/27/21 at 0647 by Sweta Henry RN Amended: Links added.
[2021-06-27 07:00] VITALS: BP 157/79
[2021-06-27] MEDS: nitroGLYCERIN 0.4mg/hour patch TD SCH (08:00)
[2021-06-27] MEDS: K and/or MAG REPLACEMENT MC SCH ×2 (08:00→20:00)
[2021-06-27] MEDS: docusate sod 100mg capsule PO SCH ×2 (08:00→20:00)
[2021-06-27] MEDS: pantoprazole 40mg Tablet.DR PO SCH (08:35)
[2021-06-27] MEDS: tamsulosin 0.4mg capsule PO SCH (08:36)
[2021-06-27] MEDS: lactobacillus rhamnosus 10,000 MMU CELLS/CAPSULE PO SCH ×2 (08:36→20:49)
[2021-06-27] MEDS: amLODIPine 2.5mg tablet PO SCH (08:36)
[2021-06-27] MEDS: losartan 25mg tablet PO SCH (08:37)
[2021-06-27] MEDS: lisinopril 20mg tablet PO SCH (08:37)
[2021-06-27] MEDS: cefepime 1GM/NS ADD-VANTAGE 100 ML IV SCH ×2 (08:38→20:45)
[2021-06-27] MEDS: azithromycin/NS 500mg/250ml 250 ML IV SCH (08:38)
[2021-06-27] MEDS: methylPREDNISolone sod succ/PF 40mg inj. IV SCH ×2 (08:40→20:52)
[2021-06-27] MEDS: levoTHYROXINE 88mcg tablet PO SCH (08:41)
[2021-06-27] MEDS: atorvastatin 10mg tablet PO SCH (08:41)
[2021-06-27] MEDS: heparin, porcine 5000 units/ml vial SQ SCH ×2 (08:42→20:55)
[2021-06-27 11:00] VITALS: BP 102/56
[2021-06-27] MEDS: budesonide 0.5mg/2ml UD nebule IH SCH ×2 (11:46→20:35)
[2021-06-27 13:28] LABS: C-REACTIVE PROTEIN 1.61 MG/DL (0.0-0.5); LACTATE DEHYDROGENASE 413 U/L (85-227)
--- NOTE | 2021-06-27 14:30 | NUR ---
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 Pt able to eat moderately well, mostly 50-100% of meals on Regular diet. [facility] [place] No nutritional intervention implemented at this time, will continue to monitor. Recs: 1. Continue Regular diet as tolerated 2. Bowel care per rx 3. Weekly wts Addendum: 06/27/21 at [address]ñez RD Amended: Links added.
--- NOTE | 2021-06-27 14:38 | NUR ---
Meds given late today due to being out of ratio and high acuity patients and most of my patients had bad IVs this am .
[2021-06-27 16:00] VITALS: BP 112/65
[2021-06-27 16:31] LABS: D-DIMER 2.71 MG/L FEU (0-0.50)
[2021-06-27 18:00] VITALS: BP 160/74
--- NOTE | 2021-06-27 18:22 | NUR ---
Problems reprioritized. Patient report given, questions answered & plan of care reviewed with Isac MIR.
--- NOTE | 2021-06-27 18:45 | NUR ---
Patient in room PCU 3028. I have received report from ADEOLA Holguin and had the opportunity to ask questions and assume patient care.
[2021-06-27] MEDS: finasteride 5mg tablet PO SCH (20:50)
[2021-06-27 23:22] VITALS: BP 165/72
[2021-06-28] MEDS: ipratropium/albuterol 3ml nebule NEB SCH ×6 (02:59→22:59)
[2021-06-28 03:00] VITALS: BP 140/70
--- NOTE | 2021-06-28 06:05 | NUR ---
Problems reprioritized. Patient report given, questions answered & plan of care reviewed with ADEOLA Koch.
[2021-06-28 06:15] LABS: MAGNESIUM 2.2 MG/DL (1.5-2.4); PHOSPHORUS 3.6 MG/DL (2.3-4.5)
--- NOTE | 2021-06-28 06:35 | NUR ---
Patient in room PCU 3028. I have received report from ADEOLA Chua and had the opportunity to ask questions and assume patient care.
[2021-06-28 07:00] VITALS: BP 134/65
[2021-06-28] MEDS: budesonide 0.5mg/2ml UD nebule IH SCH ×2 (07:55→19:20)
[2021-06-28] MEDS: K and/or MAG REPLACEMENT MC SCH ×2 (08:00→20:00)
[2021-06-28] MEDS: nitroGLYCERIN 0.4mg/hour patch TD SCH (08:00)
[2021-06-28] MEDS: docusate sod 100mg capsule PO SCH ×3 (08:00→20:00)
[2021-06-28] MEDS: methylPREDNISolone sod succ/PF 40mg inj. IV SCH ×2 (08:12→21:38)
[2021-06-28] MEDS: lactobacillus rhamnosus 10,000 MMU CELLS/CAPSULE PO SCH ×2 (08:12→21:39)
[2021-06-28] MEDS: pantoprazole 40mg Tablet.DR PO SCH (08:12)
[2021-06-28] MEDS: levoTHYROXINE 88mcg tablet PO SCH (08:12)
[2021-06-28] MEDS: magnesium hydroxide 30ml (MOM) UD suspension PO PRN (08:12)
[2021-06-28] MEDS: atorvastatin 10mg tablet PO SCH (08:12)
[2021-06-28] MEDS: losartan 25mg tablet PO SCH (08:12)
[2021-06-28] MEDS: lisinopril 20mg tablet PO SCH (08:12)
[2021-06-28] MEDS: azithromycin/NS 500mg/250ml 250 ML IV SCH (08:13)
[2021-06-28] MEDS: amLODIPine 2.5mg tablet PO SCH (08:13)
[2021-06-28] MEDS: tamsulosin 0.4mg capsule PO SCH (08:13)
[2021-06-28] MEDS: heparin, porcine 5000 units/ml vial SQ SCH ×2 (08:14→21:40)
[2021-06-28 11:00] VITALS: BP 142/74
[2021-06-28] MEDS: cefepime 2g/NS 100ml ADVANTAGE 100 ML IV SCH ×2 (11:46→21:38)
[2021-06-28 15:00] VITALS: BP 139/84
[2021-06-28 18:30] VITALS: BP 141/62
--- NOTE | 2021-06-28 18:51 | NUR ---
Problems reprioritized. Patient report given, questions answered & plan of care reviewed with ADEOLA Grigsby. Pt sitting up in bed. All pt needs met at this time.
--- NOTE | 2021-06-28 19:37 | NUR ---
pt had episode of GERD. resloved with maalox, but no appetite. chicken broth at this time. RT tx given.
[2021-06-28] MEDS: finasteride 5mg tablet PO SCH (21:39)
[2021-06-29] VITALS (7 sets, daily range): BP systolic 118–166; BP diastolic 55–73
--- NOTE | 2021-06-29 01:45 | NUR ---
Patient in room PCU 3028. I have received report from ADEOLA Wilkins and had the opportunity to ask questions and assume patient care.
[2021-06-29] MEDS: normal saline 1000ml 1,000 ML IV SCH (01:50)
[2021-06-29] MEDS: ipratropium/albuterol 3ml nebule NEB SCH ×6 (02:57→23:21)
--- NOTE | 2021-06-29 06:18 | NUR ---
Problems reprioritized. Patient report given, questions answered & plan of care reviewed with ADEOLA Koch.
--- NOTE | 2021-06-29 06:23 | NUR ---
Patient in room PCU 3028. I have received report from ADEOLA Yap and had the opportunity to ask questions and assume patient care.
[2021-06-29] MEDS: nitroGLYCERIN 0.4mg/hour patch TD SCH (08:00)
[2021-06-29] MEDS: docusate sod 100mg capsule PO SCH ×2 (08:00→20:00)
[2021-06-29] MEDS: K and/or MAG REPLACEMENT MC SCH ×2 (08:00→20:00)
[2021-06-29] MEDS: budesonide 0.5mg/2ml UD nebule IH SCH ×2 (08:05→18:57)
[2021-06-29] MEDS: cefepime 2g/NS 100ml ADVANTAGE 100 ML IV SCH ×2 (08:19→21:32)
[2021-06-29] MEDS: amLODIPine 2.5mg tablet PO SCH (08:28)
[2021-06-29] MEDS: pantoprazole 40mg Tablet.DR PO SCH (08:28)
[2021-06-29] MEDS: levoTHYROXINE 88mcg tablet PO SCH (08:28)
[2021-06-29] MEDS: tamsulosin 0.4mg capsule PO SCH (08:28)
[2021-06-29] MEDS: losartan 25mg tablet PO SCH (08:28)
[2021-06-29] MEDS: atorvastatin 10mg tablet PO SCH (08:28)
[2021-06-29] MEDS: lactobacillus rhamnosus 10,000 MMU CELLS/CAPSULE PO SCH ×2 (08:28→21:35)
[2021-06-29] MEDS: lisinopril 20mg tablet PO SCH (08:29)
[2021-06-29] MEDS: heparin, porcine 5000 units/ml vial SQ SCH ×2 (08:29→21:35)
[2021-06-29] MEDS: methylPREDNISolone sod succ/PF 40mg inj. IV SCH ×2 (08:35→21:31)
[2021-06-29] MEDS: magnesium hydroxide 30ml (MOM) UD suspension PO PRN (11:20)
--- NOTE | 2021-06-29 18:21 | NUR ---
Problems reprioritized. Patient report given, questions answered & plan of care reviewed with ADEOLA Matos. Pt sitting up in bed watching tv at change of shift. All pt needs met at this time.
--- NOTE | 2021-06-29 18:25 | NUR ---
Patient in room PCU 3028. I have received report from Zee MIR and had the opportunity to ask questions and assume patient care.
[2021-06-29] MEDS: finasteride 5mg tablet PO SCH (21:38)
[2021-06-30 02:00] VITALS: BP 146/60
[2021-06-30] MEDS: ipratropium/albuterol 3ml nebule NEB SCH ×6 (02:48→23:14)
--- NOTE | 2021-06-30 06:15 | NUR ---
Problems reprioritized. Patient report given, questions answered & plan of care reviewed with Zee MIR.
--- NOTE | 2021-06-30 06:15 | NUR ---
Patient in room PCU 3028. I have received report from ADEOLA Matos and had the opportunity to ask questions and assume patient care.
[2021-06-30 07:00] VITALS: BP 152/68
[2021-06-30] MEDS: budesonide 0.5mg/2ml UD nebule IH SCH ×2 (07:00→19:05)
[2021-06-30] MEDS: levoTHYROXINE 88mcg tablet PO SCH (07:13)
[2021-06-30] MEDS: guaiFENesin ER 600mg tablet PO SCH ×2 (07:14→21:06)
[2021-06-30] MEDS: pantoprazole 40mg Tablet.DR PO SCH (07:14)
[2021-06-30] MEDS: tamsulosin 0.4mg capsule PO SCH (07:14)
[2021-06-30] MEDS: atorvastatin 10mg tablet PO SCH (07:14)
[2021-06-30] MEDS: amLODIPine 2.5mg tablet PO SCH (07:17)
[2021-06-30] MEDS: lisinopril 20mg tablet PO SCH (07:18)
[2021-06-30] MEDS: losartan 25mg tablet PO SCH (07:18)
[2021-06-30] MEDS: cefepime 2g/NS 100ml ADVANTAGE 100 ML IV SCH ×2 (07:19→21:07)
[2021-06-30] MEDS: heparin, porcine 5000 units/ml vial SQ SCH ×2 (07:19→21:06)
[2021-06-30] MEDS: methylPREDNISolone sod succ/PF 40mg inj. IV SCH ×2 (07:20→21:06)
[2021-06-30] MEDS: lactobacillus rhamnosus 10,000 MMU CELLS/CAPSULE PO SCH ×2 (08:00→21:06)
[2021-06-30] MEDS: nitroGLYCERIN 0.4mg/hour patch TD SCH (08:00)
[2021-06-30] MEDS: K and/or MAG REPLACEMENT MC SCH ×2 (08:00→20:00)
[2021-06-30] MEDS: docusate sod 100mg capsule PO SCH ×2 (08:00→21:06)
[2021-06-30 11:00] VITALS: BP 141/80
--- NOTE | 2021-06-30 11:55 | NUR ---
Paged Dr Angulo PAGER ID: [phone] MESSAGE: Re Oleksandr Lambert [phone] Pt hasn't had labs in a couple of days, would you like a CBC and CMP? Thanks Zee Benitez [phone]
[2021-06-30 15:00] VITALS: BP 139/65
[2021-06-30 15:46] LABS: BASOPHILS % (AUTO) 0.2 % (0-1); EOSINOPHILS % (AUTO) 0 % (0-6); HEMATOCRIT 33.2 % (42.0-52.0); HEMOGLOBIN 10.9 g/dl (14.0-17.9); LYMPHOCYTES # (AUTO) 0.7 X10'3 (1.1-4.8); LYMPHOCYTES % (AUTO) 3.6 % (21-51); MEAN CORPUSCULAR HEMOGLOBIN 27.7 PG (27.0-31.0); MEAN CORPUSCULAR HGB CONC 32.8 g/dL (33.0-36.5); MEAN CORPUSCULAR VOLUME 84.3 FL (78-98); MEAN PLATELET VOLUME 8.6 FL (7.4-10.4); MONOCYTES # (AUTO) 1.4 X10'3 (0-0.9); MONOCYTES % (AUTO) 7.4 % (2-12); NEUTROPHILS # (AUTO) 17.4 X10'3 (1.8-7.7); NEUTROPHILS % (AUTO) 88.8 % (42-75); PLATELET COUNT 285 X10'3 (140-440); RED BLOOD COUNT 3.93 X10'6 (4.70-6.10); RED CELL DISTRIBUTION WIDTH 15.2 % (11.5-14.5); WHITE BLOOD COUNT 19.5 X10'3 (4.5-11.0)
[2021-06-30 16:00] LABS: ALANINE AMINOTRANSFERASE 67 U/L (12-78); ALBUMIN 2.5 G/DL (3.4-5.0); ALBUMIN/GLOBULIN RATIO 0.7 (1.1-1.5); ALKALINE PHOSPHATASE 67 IU/L (46-116); ANION GAP 7 (8-16); ASPARTATE AMINO TRANSFERASE 59 U/L (10-37); BILIRUBIN,TOTAL 0.5 MG/DL (0.1-1.0); BLOOD UREA NITROGEN 22 MG/DL (7-18); BUN/CREATININE RATIO 23.7 (5.4-32.0); CALCIUM 8.3 MG/DL (8.5-10.1); CHLORIDE 95 MMOL/L (99-107); CREATININE 0.93 MG/DL (0.60-1.10); GLUCOSE 113 MG/DL (70-104); POTASSIUM 4.6 MMOL/L (3.5-5.1); SODIUM 128 MMOL/L (135-145); TOTAL CARBON DIOXIDE 25.7 MMOL/L (24-32); eGFR 78 ML/MIN
[2021-06-30] MEDS: salt irrigation nasal spray 45 ML SPRAY NS PRN (17:53)
--- NOTE | 2021-06-30 18:49 | NUR ---
Problems reprioritized. Patient report given, questions answered & plan of care reviewed with ADEOLA Spaulding. Pt sitting up in bed at change of shift. No signs of distress. All pt needs met at this time.
[2021-06-30] MEDS: finasteride 5mg tablet PO SCH (21:06)
[2021-07-01] MEDS: normal saline 1000ml 1,000 ML IV SCH (01:20)
[2021-07-01 06:28] LABS: BASOPHILS % (AUTO) 0.1 % (0-1); EOSINOPHILS % (AUTO) 0 % (0-6); LYMPHOCYTES # (AUTO) 0.8 X10'3 (1.1-4.8); LYMPHOCYTES % (AUTO) 3.7 % (21-51); MEAN CORPUSCULAR HEMOGLOBIN 27.6 PG (27.0-31.0); MEAN CORPUSCULAR HGB CONC 32.4 g/dL (33.0-36.5); MEAN CORPUSCULAR VOLUME 85.1 FL (78-98); MONOCYTES # (AUTO) 1.4 X10'3 (0-0.9); MONOCYTES % (AUTO) 6.5 % (2-12); NEUTROPHILS % (AUTO) 89.7 % (42-75); PLATELET COUNT 339 X10'3 (140-440); RED BLOOD COUNT 4.34 X10'6 (4.70-6.10); RED CELL DISTRIBUTION WIDTH 15.1 % (11.5-14.5); WHITE BLOOD COUNT 22.3 X10'3 (4.5-11.0)
[2021-07-01 06:31] LABS: ALANINE AMINOTRANSFERASE 74 U/L (12-78); ALBUMIN 2.6 G/DL (3.4-5.0); ALBUMIN/GLOBULIN RATIO 0.7 (1.1-1.5); ALKALINE PHOSPHATASE 67 IU/L (46-116); ANION GAP 6 (8-16); ASPARTATE AMINO TRANSFERASE 59 U/L (10-37); BILIRUBIN,TOTAL 0.5 MG/DL (0.1-1.0); BLOOD UREA NITROGEN 24 MG/DL (7-18); BUN/CREATININE RATIO 26.1 (5.4-32.0); CALCIUM 8.9 MG/DL (8.5-10.1); CHLORIDE 97 MMOL/L (99-107); CREATININE 0.92 MG/DL (0.60-1.10); GLUCOSE 123 MG/DL (70-104); POTASSIUM 4.8 MMOL/L (3.5-5.1); SODIUM 130 MMOL/L (135-145); TOTAL CARBON DIOXIDE 26.8 MMOL/L (24-32); TOTAL PROTEIN 6.1 G/DL (6.4-8.2); eGFR 79 ML/MIN
--- NOTE | 2021-07-01 06:40 | NUR ---
Patient handoff given to Michaela MIR
[2021-07-01 07:00] VITALS: BP 101/65
[2021-07-01] MEDS: budesonide 0.5mg/2ml UD nebule IH SCH ×2 (07:13→19:34)
[2021-07-01] MEDS: ipratropium/albuterol 3ml nebule NEB SCH ×5 (07:13→23:00)
[2021-07-01] MEDS: docusate sod 100mg capsule PO SCH ×2 (08:00→19:45)
[2021-07-01] MEDS: K and/or MAG REPLACEMENT MC SCH ×2 (08:00→20:00)
[2021-07-01] MEDS: methylPREDNISolone sod succ/PF 40mg inj. IV SCH ×2 (08:49→19:55)
[2021-07-01] MEDS: heparin, porcine 5000 units/ml vial SQ SCH ×2 (08:53→19:49)
[2021-07-01] MEDS: atorvastatin 10mg tablet PO SCH (08:58)
[2021-07-01] MEDS: guaiFENesin ER 600mg tablet PO SCH ×2 (08:58→19:45)
[2021-07-01] MEDS: lactobacillus rhamnosus 10,000 MMU CELLS/CAPSULE PO SCH ×2 (08:58→19:45)
[2021-07-01] MEDS: cefepime 2g/NS 100ml ADVANTAGE 100 ML IV SCH ×2 (08:58→19:55)
[2021-07-01] MEDS: levoTHYROXINE 88mcg tablet PO SCH (08:58)
[2021-07-01] MEDS: tamsulosin 0.4mg capsule PO SCH (08:58)
[2021-07-01] MEDS: nitroGLYCERIN 0.4mg/hour patch TD SCH (08:59)
[2021-07-01] MEDS: losartan 25mg tablet PO SCH (09:17)
[2021-07-01] MEDS: pantoprazole 40mg Tablet.DR PO SCH (09:18)
[2021-07-01] MEDS: amLODIPine 2.5mg tablet PO SCH (09:18)
[2021-07-01 11:00] VITALS: BP 101/65
--- NOTE | 2021-07-01 11:13 | NUR ---
PATIENT STATES " HE FEELS SOB, AND NEEDS MORE O2." PATIENT O2 SAT 90- 92% ON 6L PER NC. RT AT BEDSIDE AND PLACED PATIENT ON SALTER WITH 10 LITERS OF O2.SATS NOW AT 96%. Addendum: 07/01/21 at 1642 by Deana Hodge RN Amended: Links added.
[2021-07-01] MEDS: salt irrigation nasal spray 45 ML SPRAY NS PRN ×2 (14:36→19:54)
[2021-07-01 15:00] VITALS: BP 103/57
[2021-07-01 18:00] VITALS: BP_SYST 115; BP_SYST 119; BP_DIAS 55; BP_DIAS 61
--- NOTE | 2021-07-01 19:16 | NUR ---
Patient in room PCU 3028. I have received report from PEE RN and had the opportunity to ask questions and assume patient care.
--- NOTE | 2021-07-01 19:24 | NUR ---
PAGER ID: [phone] MESSAGE: 3028AELVIN RICH-ADMISSTED FOR BILAT PNA, 84 YRS. PATIENT ANXIOPUS REQUESTING ATIVAN PO/SOMETHING FOR ANXIETY. PARESH TAYLOR 54Stephanie Addendum: 07/02/21 at 0227 by Paresh Dorantes RN Page Sent PAGER ID: [phone] MESSAGE: 3028AELVIN RICH-THE ATIVAN HELPED. MAY WE GET 0.5 IV ORDER FOR Q4 OR 6 HRS FOR ANXIETY? PARESH TAYLOR
[2021-07-01] MEDS ORDERED: LORazepam 2 mg/ml vial IV ONE (19:40)
[2021-07-01 22:00] VITALS: BP 119/61
[2021-07-02] MEDS: finasteride 5mg tablet PO SCH ×2 (00:13→21:14)
[2021-07-02 02:00] VITALS: BP 104/49
[2021-07-02] MEDS: ipratropium/albuterol 3ml nebule NEB SCH ×5 (03:52→19:26)
[2021-07-02 06:22] LABS: BASOPHILS % (AUTO) 0.2 % (0-1); EOSINOPHILS % (AUTO) 0 % (0-6); HEMATOCRIT 34.3 % (42.0-52.0); HEMOGLOBIN 11.2 g/dl (14.0-17.9); LYMPHOCYTES # (AUTO) 0.8 X10'3 (1.1-4.8); LYMPHOCYTES % (AUTO) 4.5 % (21-51); MEAN CORPUSCULAR HEMOGLOBIN 27.7 PG (27.0-31.0); MEAN CORPUSCULAR HGB CONC 32.7 g/dL (33.0-36.5); MEAN CORPUSCULAR VOLUME 84.8 FL (78-98); MONOCYTES # (AUTO) 1.5 X10'3 (0-0.9); MONOCYTES % (AUTO) 8.2 % (2-12); NEUTROPHILS # (AUTO) 16.1 X10'3 (1.8-7.7); NEUTROPHILS % (AUTO) 87.1 % (42-75); PLATELET COUNT 284 X10'3 (140-440); RED BLOOD COUNT 4.04 X10'6 (4.70-6.10); WHITE BLOOD COUNT 18.5 X10'3 (4.5-11.0)
--- NOTE | 2021-07-02 06:26 | NUR ---
Problems reprioritized. Patient report given, questions answered & plan of care reviewed with PAT RN.
[2021-07-02 06:44] LABS: ALANINE AMINOTRANSFERASE 72 U/L (12-78); ALBUMIN 2.6 G/DL (3.4-5.0); ALBUMIN/GLOBULIN RATIO 0.8 (1.1-1.5); ALKALINE PHOSPHATASE 62 IU/L (46-116); ANION GAP 6 (8-16); ASPARTATE AMINO TRANSFERASE 45 U/L (10-37); BILIRUBIN,TOTAL 0.5 MG/DL (0.1-1.0); BLOOD UREA NITROGEN 22 MG/DL (7-18); BUN/CREATININE RATIO 23.9 (5.4-32.0); CALCIUM 8.8 MG/DL (8.5-10.1); CHLORIDE 97 MMOL/L (99-107); CREATININE 0.92 MG/DL (0.60-1.10); GLUCOSE 120 MG/DL (70-104); POTASSIUM 4.5 MMOL/L (3.5-5.1); SODIUM 130 MMOL/L (135-145); TOTAL CARBON DIOXIDE 27.1 MMOL/L (24-32); eGFR 79 ML/MIN
[2021-07-02] MEDS: budesonide 0.5mg/2ml UD nebule IH SCH ×2 (06:48→19:26)
[2021-07-02 07:18] VITALS: BP 133/62
[2021-07-02 07:33] LABS: TOTAL CELLS COUNTED 100
[2021-07-02 07:36] LABS: PLATELET ESTIMATE NORMAL
[2021-07-02 07:37] LABS: BURR CELLS FEW; POLYCHROMASIA FEW; STOMATOCYTES FEW; TEAR DROP CELLS 1+
[2021-07-02] MEDS: docusate sod 100mg capsule PO SCH ×2 (08:14→19:36)
[2021-07-02] MEDS: lactobacillus rhamnosus 10,000 MMU CELLS/CAPSULE PO SCH ×2 (08:14→19:37)
[2021-07-02] MEDS: amLODIPine 2.5mg tablet PO SCH (08:15)
[2021-07-02] MEDS: tamsulosin 0.4mg capsule PO SCH (08:15)
[2021-07-02] MEDS: atorvastatin 10mg tablet PO SCH (08:15)
[2021-07-02] MEDS: losartan 25mg tablet PO SCH (08:16)
[2021-07-02] MEDS: guaiFENesin ER 600mg tablet PO SCH ×2 (08:16→19:36)
[2021-07-02] MEDS: pantoprazole 40mg Tablet.DR PO SCH (08:16)
[2021-07-02] MEDS: levoTHYROXINE 88mcg tablet PO SCH (08:16)
[2021-07-02] MEDS: nitroGLYCERIN 0.4mg/hour patch TD SCH (08:17)
[2021-07-02] MEDS: methylPREDNISolone sod succ/PF 40mg inj. IV SCH ×2 (08:17→19:36)
[2021-07-02] MEDS: heparin, porcine 5000 units/ml vial SQ SCH ×2 (08:18→19:37)
[2021-07-02] MEDS: cefepime 2g/NS 100ml ADVANTAGE 100 ML IV SCH ×2 (08:19→19:48)
--- NOTE | 2021-07-02 09:55 | NUR ---
Spoke with charge master specialist regarding biopsy. Will be added onto the IR schedule on Tuesday 07/03.
[2021-07-02 11:00] VITALS: BP 132/61
[2021-07-02 15:00] VITALS: BP 120/54
[2021-07-02] MEDS: LORazepam 2 mg/ml vial IV PRN (17:09)
[2021-07-02] MEDS: K and/or MAG REPLACEMENT MC SCH (20:00)
[2021-07-02 22:00] VITALS: BP 134/57
[2021-07-02] MEDS ORDERED: iohexol 350MG/ML 100ml bottle IV ONE (23:10)
[2021-07-03] VITALS (14 sets, daily range): BP systolic 95–154; BP diastolic 46–76
[2021-07-03] MEDS: ipratropium/albuterol 3ml nebule NEB SCH ×7 (00:14→22:53)
[2021-07-03] MEDS: normal saline 1000ml 1,000 ML IV SCH (02:10)
--- NOTE | 2021-07-03 05:50 | NUR ---
Pt in bed resting no signs of distress noted will continue to monitor and report changes
[2021-07-03] MEDS: heparin, porcine 5000 units/ml vial SQ SCH ×2 (06:15→20:57)
--- NOTE | 2021-07-03 06:31 | NUR ---
Patient in room PCU 3028. I have received report from Karolina MIR and had the opportunity to ask questions and assume patient care.
--- NOTE | 2021-07-03 06:35 | NUR ---
Problems reprioritized. Patient report given, questions answered & plan of care reviewed with Katlyn MIR .
[2021-07-03 07:05] LABS: PARTIAL THROMBOPLASTIN TIME 27 SECONDS (22-32)
[2021-07-03] MEDS: budesonide 0.5mg/2ml UD nebule IH SCH ×2 (07:25→19:00)
[2021-07-03] MEDS: docusate sod 100mg capsule PO SCH ×3 (08:00→20:58)
[2021-07-03] MEDS: K and/or MAG REPLACEMENT MC SCH ×2 (08:00→20:00)
[2021-07-03] MEDS: cefepime 2g/NS 100ml ADVANTAGE 100 ML IV SCH ×2 (09:11→20:55)
[2021-07-03] MEDS: methylPREDNISolone sod succ/PF 40mg inj. IV SCH ×2 (09:12→20:56)
[2021-07-03] MEDS: lactobacillus rhamnosus 10,000 MMU CELLS/CAPSULE PO SCH ×2 (09:14→20:58)
[2021-07-03] MEDS: nitroGLYCERIN 0.4mg/hour patch TD SCH (09:14)
[2021-07-03] MEDS: guaiFENesin ER 600mg tablet PO SCH ×2 (09:15→20:59)
[2021-07-03] MEDS: atorvastatin 10mg tablet PO SCH (09:15)
[2021-07-03] MEDS: amLODIPine 2.5mg tablet PO SCH (09:15)
[2021-07-03] MEDS: levoTHYROXINE 88mcg tablet PO SCH (09:16)
[2021-07-03] MEDS: pantoprazole 40mg Tablet.DR PO SCH (09:16)
[2021-07-03] MEDS: tamsulosin 0.4mg capsule PO SCH (09:16)
[2021-07-03] MEDS: losartan 25mg tablet PO SCH (09:16)
[2021-07-03] MEDS: salt irrigation nasal spray 45 ML SPRAY NS PRN (09:35)
--- NOTE | 2021-07-03 13:25 | NUR ---
Reassessment: Pt continues w/ similar PO intake, mostly 50-100% of meals on Regular diet. If PO intake declines, may consider ONS. [facility] 06/30. No nutritional intervention implemented at this time, will continue to monitor. Recs: 1. Continue Regular diet as tolerated 2. Monitor need for ONS if PO intake declines 3. Bowel care per rx 4. Weekly wts Addendum: 07/03/21 at [address] Jamir Nuñez RD Amended: Links added.
[2021-07-03] MEDS ORDERED: fentaNYL/PF 50MCG/1 ML 2ML syringe ONE (14:43)
[2021-07-03] MEDS ORDERED: midazolam 1 mg/ML 2ml injection ONE (14:43)
--- NOTE | 2021-07-03 18:09 | NUR ---
Problems reprioritized. Patient report given, questions answered & plan of care reviewed with Kari MIR.
--- NOTE | 2021-07-03 18:21 | NUR ---
Patient in room PCU 3028. I have received report from Katlyn MIR and had the opportunity to ask questions and assume patient care.
[2021-07-03] MEDS: finasteride 5mg tablet PO SCH (20:59)
[2021-07-03] MEDS: LORazepam 2 mg/ml vial IV PRN (21:27)
[2021-07-04] MEDS: ipratropium/albuterol 3ml nebule NEB SCH ×6 (02:47→23:09)
[2021-07-04 06:11] LABS: BASOPHILS % (AUTO) 0 % (0-1); EOSINOPHILS % (AUTO) 0 % (0-6); HEMATOCRIT 33.3 % (42.0-52.0); HEMOGLOBIN 10.9 g/dl (14.0-17.9); LYMPHOCYTES # (AUTO) 0.6 X10'3 (1.1-4.8); LYMPHOCYTES % (AUTO) 3.5 % (21-51); MEAN CORPUSCULAR HEMOGLOBIN 28.1 PG (27.0-31.0); MEAN CORPUSCULAR HGB CONC 32.9 g/dL (33.0-36.5); MEAN CORPUSCULAR VOLUME 85.4 FL (78-98); MEAN PLATELET VOLUME 9.1 FL (7.4-10.4); MONOCYTES # (AUTO) 0.9 X10'3 (0-0.9); MONOCYTES % (AUTO) 5.5 % (2-12); NEUTROPHILS # (AUTO) 15.5 X10'3 (1.8-7.7); PLATELET COUNT 250 X10'3 (140-440); RED BLOOD COUNT 3.89 X10'6 (4.70-6.10); RED CELL DISTRIBUTION WIDTH 15.2 % (11.5-14.5); WHITE BLOOD COUNT 17.1 X10'3 (4.5-11.0)
--- NOTE | 2021-07-04 06:17 | NUR ---
Problems reprioritized. Patient report given, questions answered & plan of care reviewed with Katlyn MIR.
[2021-07-04 06:28] LABS: ALBUMIN 2.6 G/DL (3.4-5.0); ANION GAP 8 (8-16); BLOOD UREA NITROGEN 23 MG/DL (7-18); BUN/CREATININE RATIO 25.6 (5.4-32.0); CALCIUM 8.8 MG/DL (8.5-10.1); CHLORIDE 98 MMOL/L (99-107); GLUCOSE 116 MG/DL (70-104); POTASSIUM 4.4 MMOL/L (3.5-5.1); SODIUM 132 MMOL/L (135-145); TOTAL CARBON DIOXIDE 26.4 MMOL/L (24-32); eGFR 81 ML/MIN
[2021-07-04 07:00] VITALS: BP 126/53
[2021-07-04 07:02] LABS: PLATELET ESTIMATE NORMAL; TOTAL CELLS COUNTED 100
[2021-07-04 07:03] LABS: TEAR DROP CELLS FEW
[2021-07-04 07:04] LABS: POLYCHROMASIA FEW; STOMATOCYTES FEW
--- NOTE | 2021-07-04 07:13 | NUR ---
Patient in room PCU 3028. I have received report from Kari MIR and had the opportunity to ask questions and assume patient care.
[2021-07-04] MEDS: docusate sod 100mg capsule PO SCH ×2 (08:00→20:00)
[2021-07-04] MEDS: guaiFENesin ER 600mg tablet PO SCH ×2 (08:10→21:04)
[2021-07-04] MEDS: pantoprazole 40mg Tablet.DR PO SCH (08:10)
[2021-07-04] MEDS: heparin, porcine 5000 units/ml vial SQ SCH ×2 (08:10→21:06)
[2021-07-04] MEDS: budesonide 0.5mg/2ml UD nebule IH SCH ×2 (08:10→19:04)
[2021-07-04] MEDS: nitroGLYCERIN 0.4mg/hour patch TD SCH (08:11)
[2021-07-04] MEDS: tamsulosin 0.4mg capsule PO SCH (08:11)
[2021-07-04] MEDS: atorvastatin 10mg tablet PO SCH (08:11)
[2021-07-04] MEDS: methylPREDNISolone sod succ/PF 40mg inj. IV SCH ×2 (08:27→21:03)
[2021-07-04] MEDS: levoTHYROXINE 88mcg tablet PO SCH (08:27)
[2021-07-04] MEDS: cefepime 2g/NS 100ml ADVANTAGE 100 ML IV SCH ×3 (08:28→20:59)
[2021-07-04] MEDS: lactobacillus rhamnosus 10,000 MMU CELLS/CAPSULE PO SCH ×2 (08:28→21:04)
[2021-07-04] MEDS: amLODIPine 2.5mg tablet PO SCH (08:35)
[2021-07-04] MEDS: losartan 25mg tablet PO SCH (08:36)
[2021-07-04] MEDS: K and/or MAG REPLACEMENT MC SCH ×3 (08:47→19:09)
[2021-07-04 11:00] VITALS: BP 118/52
[2021-07-04] MEDS ORDERED: potassium Cl 20 mEq SR tablet PO PRN ×2 (13:25)
[2021-07-04] MEDS ORDERED: magnesium Cl slow-release 64mg tablet PO PRN (13:25)
[2021-07-04] MEDS ORDERED: magnesium 4gm in 100ml NS 100 ML IV PRN (13:25)
[2021-07-04] MEDS ORDERED: potassium Cl 40MEQ/1/2NS 520ml 520 ML IV PRN (13:25)
[2021-07-04 15:00] VITALS: BP 105/52
[2021-07-04] MEDS: clindamycin 600mg/D5W 50ml 50 ML IV SCH ×2 (15:58→21:01)
[2021-07-04 18:00] VITALS: BP 130/60
--- NOTE | 2021-07-04 18:35 | NUR ---
Problems reprioritized. Patient report given, questions answered & plan of care reviewed with Corry MIR.
--- NOTE | 2021-07-04 18:59 | NUR ---
Patient in room U 3028. I have received report from Katlyn MIR and had the opportunity to ask questions and assume patient care. Pt sitting on side of the bed eating dinner. No signs of distress, will continue to monitor.
[2021-07-04] MEDS: LORazepam 2 mg/ml vial IV PRN (21:03)
[2021-07-04] MEDS: finasteride 5mg tablet PO SCH (21:04)
[2021-07-04 22:00] VITALS: BP 157/77
[2021-07-05] VITALS (11 sets, daily range): BP systolic 102–159; BP diastolic 42–81
[2021-07-05] MEDS: normal saline 1000ml 1,000 ML IV SCH ×2 (01:34→03:18)
[2021-07-05] MEDS: ipratropium/albuterol 3ml nebule NEB SCH ×6 (02:53→23:07)
[2021-07-05] MEDS: clindamycin 600mg/D5W 50ml 50 ML IV SCH ×4 (03:15→20:36)
[2021-07-05 06:31] LABS: BASOPHILS % (AUTO) 0.3 % (0-1); EOSINOPHILS % (AUTO) 0 % (0-6); HEMATOCRIT 31.2 % (42.0-52.0); HEMOGLOBIN 10.4 g/dl (14.0-17.9); LYMPHOCYTES # (AUTO) 0.6 X10'3 (1.1-4.8); LYMPHOCYTES % (AUTO) 3.7 % (21-51); MEAN CORPUSCULAR HEMOGLOBIN 28.5 PG (27.0-31.0); MEAN CORPUSCULAR HGB CONC 33.3 g/dL (33.0-36.5); MEAN CORPUSCULAR VOLUME 85.5 FL (78-98); MEAN PLATELET VOLUME 9.2 FL (7.4-10.4); MONOCYTES % (AUTO) 6.1 % (2-12); NEUTROPHILS # (AUTO) 13.9 X10'3 (1.8-7.7); NEUTROPHILS % (AUTO) 89.9 % (42-75); PLATELET COUNT 232 X10'3 (140-440); RED BLOOD COUNT 3.65 X10'6 (4.70-6.10); RED CELL DISTRIBUTION WIDTH 15.5 % (11.5-14.5); WHITE BLOOD COUNT 15.5 X10'3 (4.5-11.0)
--- NOTE | 2021-07-05 06:31 | NUR ---
Problems reprioritized. Patient report given, questions answered & plan of care reviewed with Laurie MIR.
--- NOTE | 2021-07-05 06:32 | NUR ---
Patient in room PCU 3028. I have received report from ADEOLA Pierce and had the opportunity to ask questions and assume patient care.
[2021-07-05 06:36] LABS: ALANINE AMINOTRANSFERASE 64 U/L (12-78); ALBUMIN 2.5 G/DL (3.4-5.0); ALBUMIN/GLOBULIN RATIO 0.8 (1.1-1.5); ALKALINE PHOSPHATASE 58 IU/L (46-116); ANION GAP 6 (8-16); ASPARTATE AMINO TRANSFERASE 35 U/L (10-37); BILIRUBIN,TOTAL 0.4 MG/DL (0.1-1.0); BLOOD UREA NITROGEN 21 MG/DL (7-18); BUN/CREATININE RATIO 25.3 (5.4-32.0); CALCIUM 8.7 MG/DL (8.5-10.1); CHLORIDE 99 MMOL/L (99-107); CREATININE 0.83 MG/DL (0.60-1.10); GLUCOSE 124 MG/DL (70-104); MAGNESIUM 1.9 MG/DL (1.5-2.4); PHOSPHORUS 3.5 MG/DL (2.3-4.5); POTASSIUM 4.5 MMOL/L (3.5-5.1); SODIUM 130 MMOL/L (135-145); TOTAL CARBON DIOXIDE 25.3 MMOL/L (24-32); TOTAL PROTEIN 5.6 G/DL (6.4-8.2); eGFR 89 ML/MIN
[2021-07-05] MEDS: budesonide 0.5mg/2ml UD nebule IH SCH ×2 (07:32→19:20)
[2021-07-05] MEDS: docusate sod 100mg capsule PO SCH ×3 (08:00→20:00)
[2021-07-05] MEDS: K and/or MAG REPLACEMENT MC SCH ×4 (08:00→20:00)
[2021-07-05] MEDS: levoTHYROXINE 88mcg tablet PO SCH (08:33)
[2021-07-05] MEDS: lactobacillus rhamnosus 10,000 MMU CELLS/CAPSULE PO SCH ×2 (08:33→22:35)
[2021-07-05] MEDS: pantoprazole 40mg Tablet.DR PO SCH (08:33)
[2021-07-05] MEDS: guaiFENesin ER 600mg tablet PO SCH ×2 (08:33→22:35)
[2021-07-05] MEDS: atorvastatin 10mg tablet PO SCH (08:33)
[2021-07-05] MEDS: tamsulosin 0.4mg capsule PO SCH (08:33)
[2021-07-05] MEDS: amLODIPine 2.5mg tablet PO SCH (08:34)
[2021-07-05] MEDS: losartan 25mg tablet PO SCH (08:34)
[2021-07-05] MEDS: nitroGLYCERIN 0.4mg/hour patch TD SCH (08:35)
[2021-07-05] MEDS: heparin, porcine 5000 units/ml vial SQ SCH ×2 (08:36→20:00)
[2021-07-05] MEDS: methylPREDNISolone sod succ/PF 40mg inj. IV SCH ×2 (08:36→20:21)
[2021-07-05] MEDS: salt irrigation nasal spray 45 ML SPRAY NS PRN (08:47)
[2021-07-05 08:53] LABS: TOTAL CELLS COUNTED 100
[2021-07-05 08:54] LABS: PLATELET ESTIMATE NORMAL
[2021-07-05 08:55] LABS: HYPOCHROMASIA 1+; SCHISTOCYTES FEW
[2021-07-05] MEDS: cefepime 2g/NS 100ml ADVANTAGE 100 ML IV SCH ×2 (09:48→20:21)
--- NOTE | 2021-07-05 11:39 | NUR ---
T/C to [facility] to check on status of pathology report, per Dr Hoang request. Was told that results will be in this evening at the earliest, but most likely will have results reported in the AM. Dr Hoang notified per paging system.
--- NOTE | 2021-07-05 18:14 | NUR ---
PAGER ID: [phone] MESSAGE: Laurie Kwaku [phone] re Petra [id number] virtual radiologist called re CT result, wants to speak with hospitalist. Please call [phone] regarding critical result. Thank you
--- NOTE | 2021-07-05 18:17 | NUR ---
Problems reprioritized. Patient report given, questions answered & plan of care reviewed with ADEOLA Welsh.
--- NOTE | 2021-07-05 18:29 | NUR ---
Patient in room PCU 3028. I have received report from ADEOLA Sullivan and had the opportunity to ask questions and assume patient care. Rn paged Md with critical ct results and md to call radiologist. Pt sitting up at edge of bed eating dinner, spouse at bedside assisting pt. No complaints at this time, in no distress. Addendum: 07/05/21 at 1831 by Laureen Wiley RN Amended: Links added.
--- NOTE | 2021-07-05 18:35 | NUR ---
Received T/C from Dr Hoang notifying this RN that Dr Nj from IR was consulted, and would be up tonight to place a chest tube. Night RN notified.
--- NOTE | 2021-07-05 19:00 | NUR ---
is gone. p in bed. Dr. Nj to come insert ct at bedside. supplies gathered at nurses station. ore charger to call clearing supervisor. Addendum: 07/05/21 at 1953 by Laureen Wiley RN Amended: Links added.
--- NOTE | 2021-07-05 19:54 | NUR ---
IR called and states will either insert CT at bedside or in IR. they will notify us. Plan has been discussed with patient. he has some sob, but in no distress at this time. Addendum: 07/05/21 at 1954 by Laureen Wiley RN Amended: Links added.
--- NOTE | 2021-07-05 20:38 | NUR ---
waiting for MD to insert CT. pt calm, but states anxious to have done tonight. no distress sat 97% on 15l hi/bernard at this time. states sputum dark brown. Addendum: 07/05/21 at 2040 by Laureen Wiley RN Amended: Links added.
--- NOTE | 2021-07-05 21:04 | NUR ---
IR at bedside. Addendum: 07/05/21 at 2104 by Laureen Wiley RN Amended: Links added.
--- NOTE | 2021-07-05 21:35 | NUR ---
Ct inserted by IR left upper ant chest. states 1500ml air removed. pt alert and comfortable. xray being done now. Addendum: 07/05/21 at 2136 by Laureen Wiley RN Amended: Links added.
[2021-07-05] MEDS: finasteride 5mg tablet PO SCH (22:35)
[2021-07-05] MEDS: morphine 2 MG/ML inj. syringe IV PRN (22:35)
[2021-07-05] MEDS: temazepam 15mg capsule PO PRN (23:38)
[2021-07-06 02:00] VITALS: BP 149/70
[2021-07-06] MEDS: HYDROcodone/acetaminophen 5mg/325mg tablet PO PRN (02:02)
[2021-07-06] MEDS: LORazepam 2 mg/ml vial IV PRN ×2 (02:02→21:24)
[2021-07-06] MEDS: clindamycin 600mg/D5W 50ml 50 ML IV SCH ×4 (02:03→21:22)
[2021-07-06] MEDS: normal saline 1000ml 1,000 ML IV SCH (02:36)
[2021-07-06] MEDS: ipratropium/albuterol 3ml nebule NEB SCH ×6 (03:43→23:31)
--- NOTE | 2021-07-06 05:30 | NUR ---
pt does not want labs drawn this earlyh in am. states lab can come back in the morning Addendum: 07/06/21 at 0531 by Laureen Wiley RN Amended: Links added.
--- NOTE | 2021-07-06 06:35 | NUR ---
Problems reprioritized. Patient report given, questions answered & plan of care reviewed with ADEOLA Currie. Addendum: 07/11/21 at 2345 by Laureen Wiley RN Amended: Links added.
[2021-07-06 07:15] VITALS: BP 139/61
--- NOTE | 2021-07-06 07:22 | NUR ---
Patient in room PCU 3028. I have received report from Anitha MIR and had the opportunity to ask questions and assume patient care.
[2021-07-06] MEDS: budesonide 0.5mg/2ml UD nebule IH SCH ×2 (07:35→19:08)
--- NOTE | 2021-07-06 07:35 | NUR ---
Patient states last BM 3 to 4 days ago which is not normal for patient. Addendum: 07/06/21 at 0740 by Nicholas Kerr - Asya RODRIGUES Amended: Links added.
[2021-07-06] MEDS: K and/or MAG REPLACEMENT MC SCH ×4 (08:00→20:00)
[2021-07-06] MEDS: guaiFENesin ER 600mg tablet PO SCH ×2 (09:00→21:22)
[2021-07-06] MEDS: docusate sod 100mg capsule PO SCH ×2 (09:01→21:21)
[2021-07-06] MEDS: pantoprazole 40mg Tablet.DR PO SCH (09:03)
[2021-07-06] MEDS: tamsulosin 0.4mg capsule PO SCH (09:03)
[2021-07-06] MEDS: magnesium hydroxide 30ml (MOM) UD suspension PO PRN (09:03)
[2021-07-06] MEDS: levoTHYROXINE 88mcg tablet PO SCH (09:04)
[2021-07-06] MEDS: losartan 25mg tablet PO SCH (09:04)
[2021-07-06] MEDS: atorvastatin 10mg tablet PO SCH (09:04)
[2021-07-06] MEDS: amLODIPine 2.5mg tablet PO SCH (09:05)
[2021-07-06] MEDS: nitroGLYCERIN 0.4mg/hour patch TD SCH (09:06)
[2021-07-06] MEDS: heparin, porcine 5000 units/ml vial SQ SCH ×2 (09:08→21:24)
[2021-07-06] MEDS: methylPREDNISolone sod succ/PF 40mg inj. IV SCH ×2 (09:21→21:23)
[2021-07-06] MEDS: lactobacillus rhamnosus 10,000 MMU CELLS/CAPSULE PO SCH ×2 (09:21→21:22)
[2021-07-06 09:38] LABS: BASOPHILS # (AUTO) 0.1 X10'3 (0-0.2); BASOPHILS % (AUTO) 0.3 % (0-1); EOSINOPHILS % (AUTO) 0 % (0-6); HEMATOCRIT 38.6 % (42.0-52.0); HEMOGLOBIN 12.5 g/dl (14.0-17.9); LYMPHOCYTES # (AUTO) 1.2 X10'3 (1.1-4.8); LYMPHOCYTES % (AUTO) 4.9 % (21-51); MEAN CORPUSCULAR HEMOGLOBIN 27.9 PG (27.0-31.0); MEAN CORPUSCULAR HGB CONC 32.5 g/dL (33.0-36.5); MEAN CORPUSCULAR VOLUME 85.9 FL (78-98); MEAN PLATELET VOLUME 9.4 FL (7.4-10.4); MONOCYTES # (AUTO) 1.4 X10'3 (0-0.9); MONOCYTES % (AUTO) 5.8 % (2-12); NEUTROPHILS # (AUTO) 21.8 X10'3 (1.8-7.7); PLATELET COUNT 308 X10'3 (140-440); RED BLOOD COUNT 4.49 X10'6 (4.70-6.10); RED CELL DISTRIBUTION WIDTH 15.6 % (11.5-14.5); WHITE BLOOD COUNT 24.5 X10'3 (4.5-11.0)
[2021-07-06 10:01] LABS: ALANINE AMINOTRANSFERASE 69 U/L (12-78); ALBUMIN 2.9 G/DL (3.4-5.0); ALBUMIN/GLOBULIN RATIO 0.8 (1.1-1.5); ALKALINE PHOSPHATASE 68 IU/L (46-116); ANION GAP 8 (8-16); ASPARTATE AMINO TRANSFERASE 32 U/L (10-37); BILIRUBIN,TOTAL 0.5 MG/DL (0.1-1.0); BLOOD UREA NITROGEN 18 MG/DL (7-18); BUN/CREATININE RATIO 23.1 (5.4-32.0); CALCIUM 9.1 MG/DL (8.5-10.1); CHLORIDE 96 MMOL/L (99-107); CREATININE 0.78 MG/DL (0.60-1.10); GLUCOSE 109 MG/DL (70-104); PHOSPHORUS 2.9 MG/DL (2.3-4.5); POTASSIUM 4.5 MMOL/L (3.5-5.1); SODIUM 130 MMOL/L (135-145); TOTAL CARBON DIOXIDE 26.4 MMOL/L (24-32); TOTAL PROTEIN 6.7 G/DL (6.4-8.2); eGFR > 90 ML/MIN
[2021-07-06] MEDS: cefepime 2g/NS 100ml ADVANTAGE 100 ML IV SCH ×2 (10:33→21:22)
[2021-07-06 13:23] VITALS: BP 125/59
--- NOTE | 2021-07-06 18:38 | NUR ---
Problems reprioritized. Patient report given, questions answered & plan of care reviewed with Melissa MIR.
[2021-07-06] MEDS: finasteride 5mg tablet PO SCH (21:21)
[2021-07-06 22:00] VITALS: BP 147/65
[2021-07-07 03:00] VITALS: BP 132/64
[2021-07-07] MEDS: ipratropium/albuterol 3ml nebule NEB SCH ×6 (03:14→23:08)
[2021-07-07] MEDS: clindamycin 600mg/D5W 50ml 50 ML IV SCH ×4 (04:23→21:57)
[2021-07-07 06:00] VITALS: BP 143/69
[2021-07-07 06:24] LABS: BASOPHILS % (AUTO) 0.2 % (0-1); EOSINOPHILS % (AUTO) 0 % (0-6); HEMATOCRIT 32.5 % (42.0-52.0); HEMOGLOBIN 11.1 g/dl (14.0-17.9); LYMPHOCYTES # (AUTO) 0.7 X10'3 (1.1-4.8); LYMPHOCYTES % (AUTO) 4.3 % (21-51); MEAN CORPUSCULAR HEMOGLOBIN 28.1 PG (27.0-31.0); MEAN CORPUSCULAR VOLUME 82.6 FL (78-98); MONOCYTES # (AUTO) 1.2 X10'3 (0-0.9); MONOCYTES % (AUTO) 6.7 % (2-12); NEUTROPHILS # (AUTO) 15.3 X10'3 (1.8-7.7); NEUTROPHILS % (AUTO) 88.8 % (42-75); PLATELET COUNT 223 X10'3 (140-440); RED BLOOD COUNT 3.94 X10'6 (4.70-6.10); RED CELL DISTRIBUTION WIDTH 15.8 % (11.5-14.5); WHITE BLOOD COUNT 17.2 X10'3 (4.5-11.0)
--- NOTE | 2021-07-07 06:35 | NUR ---
Patient in room PCU 3028. I have received report from Kelly MIR and had the opportunity to ask questions and assume patient care.
[2021-07-07 06:38] LABS: ALANINE AMINOTRANSFERASE 60 U/L (12-78); ALBUMIN 2.6 G/DL (3.4-5.0); ALBUMIN/GLOBULIN RATIO 0.8 (1.1-1.5); ALKALINE PHOSPHATASE 60 IU/L (46-116); ANION GAP 5 (8-16); ASPARTATE AMINO TRANSFERASE 37 U/L (10-37); BILIRUBIN,TOTAL 0.5 MG/DL (0.1-1.0); BLOOD UREA NITROGEN 21 MG/DL (7-18); BUN/CREATININE RATIO 23.9 (5.4-32.0); CALCIUM 8.4 MG/DL (8.5-10.1); CHLORIDE 94 MMOL/L (99-107); CREATININE 0.88 MG/DL (0.60-1.10); GLUCOSE 116 MG/DL (70-104); PHOSPHORUS 3.5 MG/DL (2.3-4.5); POTASSIUM 4.6 MMOL/L (3.5-5.1); SODIUM 126 MMOL/L (135-145); TOTAL CARBON DIOXIDE 27.5 MMOL/L (24-32); eGFR 83 ML/MIN
[2021-07-07 06:53] LABS: ANISOCYTOSIS 1+; PLATELET ESTIMATE NORMAL; TOTAL CELLS COUNTED 100
[2021-07-07] MEDS: budesonide 0.5mg/2ml UD nebule IH SCH ×2 (07:09→19:37)
[2021-07-07] MEDS: K and/or MAG REPLACEMENT MC SCH ×4 (08:00→19:59)
[2021-07-07] MEDS: nitroGLYCERIN 0.4mg/hour patch TD SCH ×2 (08:00→08:23)
[2021-07-07] MEDS: docusate sod 100mg capsule PO SCH ×2 (08:00→19:59)
[2021-07-07] MEDS: cefepime 2g/NS 100ml ADVANTAGE 100 ML IV SCH ×2 (08:04→19:14)
[2021-07-07] MEDS: salt irrigation nasal spray 45 ML SPRAY NS PRN (08:13)
[2021-07-07] MEDS: methylPREDNISolone sod succ/PF 40mg inj. IV SCH ×2 (08:16→19:14)
[2021-07-07] MEDS: lactobacillus rhamnosus 10,000 MMU CELLS/CAPSULE PO SCH ×2 (08:17→19:15)
[2021-07-07] MEDS: heparin, porcine 5000 units/ml vial SQ SCH ×2 (08:17→19:16)
[2021-07-07] MEDS: guaiFENesin ER 600mg tablet PO SCH ×2 (08:17→19:14)
[2021-07-07] MEDS: amLODIPine 2.5mg tablet PO SCH (08:17)
[2021-07-07] MEDS: atorvastatin 10mg tablet PO SCH (08:18)
[2021-07-07] MEDS: pantoprazole 40mg Tablet.DR PO SCH (08:18)
[2021-07-07] MEDS: levoTHYROXINE 88mcg tablet PO SCH (08:18)
[2021-07-07] MEDS: tamsulosin 0.4mg capsule PO SCH (08:18)
[2021-07-07] MEDS: losartan 25mg tablet PO SCH (08:18)
--- NOTE | 2021-07-07 10:25 | NUR ---
PAGER ID: [phone] MESSAGE: colleen vasquez [phone] re: Jory LambertA. Pathology report faxed over, report in patients chart. Thank you
[2021-07-07 11:00] VITALS: BP 144/69
[2021-07-07] MEDS: LORazepam 2 mg/ml vial IV PRN (14:10)
[2021-07-07 15:00] VITALS: BP 97/60
[2021-07-07 18:00] VITALS: BP 113/63
--- NOTE | 2021-07-07 18:10 | NUR ---
Problems reprioritized. Patient report given, questions answered & plan of care reviewed with Blanca vasquez.
--- NOTE | 2021-07-07 18:15 | NUR ---
Patient in room PCU 3028. I have received report from Manasa MIR and had the opportunity to ask questions and assume patient care.
--- NOTE | 2021-07-07 18:25 | NUR ---
Problems reprioritized. Patient report given, questions answered & plan of care reviewed with tammy MIR.
[2021-07-07] MEDS: temazepam 15mg capsule PO PRN (21:53)
[2021-07-07] MEDS: sodium chloride 1gm tablet PO SCH (21:54)
[2021-07-07] MEDS: finasteride 5mg tablet PO SCH (21:55)
[2021-07-08 02:00] VITALS: BP 131/63
[2021-07-08] MEDS: ipratropium/albuterol 3ml nebule NEB SCH ×6 (03:00→23:09)
[2021-07-08] MEDS: clindamycin 600mg/D5W 50ml 50 ML IV SCH ×4 (03:51→20:15)
[2021-07-08 06:00] VITALS: BP 122/52
--- NOTE | 2021-07-08 06:00 | NUR ---
Problems reprioritized. Patient report given, questions answered & plan of care reviewed with Manasa MIR.
--- NOTE | 2021-07-08 06:12 | NUR ---
Patient in room PCU 3028. I have received report from Leonarda MIR and had the opportunity to ask questions and assume patient care.
[2021-07-08] MEDS: salt irrigation nasal spray 45 ML SPRAY NS PRN (07:22)
[2021-07-08] MEDS: methylPREDNISolone sod succ/PF 40mg inj. IV SCH ×2 (07:22→20:15)
[2021-07-08] MEDS: heparin, porcine 5000 units/ml vial SQ SCH ×2 (07:24→20:17)
[2021-07-08] MEDS: pantoprazole 40mg Tablet.DR PO SCH (07:28)
[2021-07-08] MEDS: guaiFENesin ER 600mg tablet PO SCH ×2 (07:28→20:16)
[2021-07-08] MEDS: tamsulosin 0.4mg capsule PO SCH (07:28)
[2021-07-08] MEDS: atorvastatin 10mg tablet PO SCH (07:29)
[2021-07-08] MEDS: amLODIPine 2.5mg tablet PO SCH (07:29)
[2021-07-08] MEDS: budesonide 0.5mg/2ml UD nebule IH SCH ×2 (07:29→19:32)
[2021-07-08] MEDS: lactobacillus rhamnosus 10,000 MMU CELLS/CAPSULE PO SCH ×2 (07:29→20:16)
[2021-07-08] MEDS: losartan 25mg tablet PO SCH (07:30)
[2021-07-08] MEDS: sodium chloride 1gm tablet PO SCH ×4 (07:30→20:44)
[2021-07-08] MEDS: levoTHYROXINE 88mcg tablet PO SCH (07:31)
[2021-07-08] MEDS: docusate sod 100mg capsule PO SCH ×2 (08:00→20:00)
[2021-07-08] MEDS: K and/or MAG REPLACEMENT MC SCH ×4 (08:00→20:00)
[2021-07-08] MEDS: cefepime 2g/NS 100ml ADVANTAGE 100 ML IV SCH ×2 (08:17→20:45)
--- NOTE | 2021-07-08 08:25 | NUR ---
PAGER ID: [phone] MESSAGE: AWA MIR [phone] RE: ELVIN RAE [phone]. Critical chest xray please call vrad [phone]. thank you
[2021-07-08] MEDS: normal saline 1000ml 1,000 ML IV SCH (09:36)
[2021-07-08 11:00] VITALS: BP 115/52
--- NOTE | 2021-07-08 11:19 | NUR ---
F/u 07/08: Pt PO mostly 75-100% avg meals past 4 days meeting needs. LBM 07/07 refusing routine colace per EMR. Serum Na 126 down from 130 prior receiving PO NS QID per EMR. No nutrition intervention at this time. Will continue to monitor. Recs: 1. Continue Regular diet 2. Bowel care per rx 3. Weekly wts Addendum: 07/08/21 at [address] Amended: Links added.
[2021-07-08 15:00] VITALS: BP 134/58
[2021-07-08 15:40] LABS: BASOPHILS % (AUTO) 0.2 % (0-1); EOSINOPHILS % (AUTO) 0 % (0-6); HEMATOCRIT 34.3 % (42.0-52.0); HEMOGLOBIN 11.5 g/dl (14.0-17.9); LYMPHOCYTES # (AUTO) 0.5 X10'3 (1.1-4.8); LYMPHOCYTES % (AUTO) 3.6 % (21-51); MEAN CORPUSCULAR HEMOGLOBIN 28.5 PG (27.0-31.0); MEAN CORPUSCULAR HGB CONC 33.5 g/dL (33.0-36.5); MEAN CORPUSCULAR VOLUME 85.3 FL (78-98); MONOCYTES # (AUTO) 1.1 X10'3 (0-0.9); MONOCYTES % (AUTO) 7.6 % (2-12); NEUTROPHILS # (AUTO) 13.1 X10'3 (1.8-7.7); NEUTROPHILS % (AUTO) 88.6 % (42-75); PLATELET COUNT 222 X10'3 (140-440); RED BLOOD COUNT 4.03 X10'6 (4.70-6.10); RED CELL DISTRIBUTION WIDTH 15.6 % (11.5-14.5); WHITE BLOOD COUNT 14.7 X10'3 (4.5-11.0)
[2021-07-08 15:58] LABS: ALANINE AMINOTRANSFERASE 55 U/L (12-78); ALBUMIN 2.6 G/DL (3.4-5.0); ALBUMIN/GLOBULIN RATIO 0.8 (1.1-1.5); ALKALINE PHOSPHATASE 60 IU/L (46-116); ANION GAP 5 (8-16); ASPARTATE AMINO TRANSFERASE 24 U/L (10-37); BILIRUBIN,TOTAL 0.3 MG/DL (0.1-1.0); BLOOD UREA NITROGEN 23 MG/DL (7-18); BUN/CREATININE RATIO 26.4 (5.4-32.0); CALCIUM 8.4 MG/DL (8.5-10.1); CHLORIDE 99 MMOL/L (99-107); CREATININE 0.87 MG/DL (0.60-1.10); GLUCOSE 127 MG/DL (70-104); PHOSPHORUS 3.4 MG/DL (2.3-4.5); POTASSIUM 4.5 MMOL/L (3.5-5.1); SODIUM 128 MMOL/L (135-145); TOTAL CARBON DIOXIDE 24.4 MMOL/L (24-32); TOTAL PROTEIN 5.9 G/DL (6.4-8.2); eGFR 84 ML/MIN
--- NOTE | 2021-07-08 18:50 | NUR ---
Problems reprioritized. Patient report given, questions answered & plan of care reviewed with YOHANNES MIR.
--- NOTE | 2021-07-08 18:51 | NUR ---
Patient in room PCU 3028. I have received report from Manasa, and had the opportunity to ask questions and assume patient care.
[2021-07-08 19:00] VITALS: BP 140/53
[2021-07-08] MEDS: finasteride 5mg tablet PO SCH (21:00)
[2021-07-08 23:00] VITALS: BP 145/72
[2021-07-09] MEDS: ipratropium/albuterol 3ml nebule NEB SCH ×6 (02:40→23:50)
[2021-07-09 03:00] VITALS: BP 123/66
[2021-07-09] MEDS: clindamycin 600mg/D5W 50ml 50 ML IV SCH ×4 (04:33→22:41)
[2021-07-09 06:00] VITALS: BP 139/66
--- NOTE | 2021-07-09 06:45 | NUR ---
Problems reprioritized. Patient report given, questions answered & plan of care reviewed with ADEOLA Whipple.
[2021-07-09 06:48] LABS: BASOPHILS % (AUTO) 0.3 % (0-1); EOSINOPHILS % (AUTO) 0 % (0-6); HEMATOCRIT 34.1 % (42.0-52.0); HEMOGLOBIN 11.4 g/dl (14.0-17.9); LYMPHOCYTES # (AUTO) 0.5 X10'3 (1.1-4.8); LYMPHOCYTES % (AUTO) 3.8 % (21-51); MEAN CORPUSCULAR HEMOGLOBIN 28.5 PG (27.0-31.0); MEAN CORPUSCULAR HGB CONC 33.4 g/dL (33.0-36.5); MEAN CORPUSCULAR VOLUME 85.4 FL (78-98); MEAN PLATELET VOLUME 8.3 FL (7.4-10.4); MONOCYTES # (AUTO) 0.8 X10'3 (0-0.9); MONOCYTES % (AUTO) 6.3 % (2-12); NEUTROPHILS # (AUTO) 11.4 X10'3 (1.8-7.7); NEUTROPHILS % (AUTO) 89.6 % (42-75); PLATELET COUNT 190 X10'3 (140-440); RED BLOOD COUNT 3.99 X10'6 (4.70-6.10); RED CELL DISTRIBUTION WIDTH 15.9 % (11.5-14.5); WHITE BLOOD COUNT 12.7 X10'3 (4.5-11.0)
[2021-07-09 07:04] LABS: ALANINE AMINOTRANSFERASE 50 U/L (12-78); ALBUMIN 2.6 G/DL (3.4-5.0); ALBUMIN/GLOBULIN RATIO 0.8 (1.1-1.5); ALKALINE PHOSPHATASE 58 IU/L (46-116); ANION GAP 8 (8-16); ASPARTATE AMINO TRANSFERASE 24 U/L (10-37); BILIRUBIN,TOTAL 0.4 MG/DL (0.1-1.0); BLOOD UREA NITROGEN 20 MG/DL (7-18); CALCIUM 8.6 MG/DL (8.5-10.1); CHLORIDE 98 MMOL/L (99-107); CREATININE 0.77 MG/DL (0.60-1.10); GLUCOSE 117 MG/DL (70-104); MAGNESIUM 2.4 MG/DL (1.5-2.4); PHOSPHORUS 3.5 MG/DL (2.3-4.5); POTASSIUM 4.6 MMOL/L (3.5-5.1); SODIUM 130 MMOL/L (135-145); TOTAL CARBON DIOXIDE 24.1 MMOL/L (24-32); TOTAL PROTEIN 5.8 G/DL (6.4-8.2); eGFR > 90 ML/MIN
[2021-07-09] MEDS: budesonide 0.5mg/2ml UD nebule IH SCH ×2 (07:10→19:58)
[2021-07-09] MEDS: docusate sod 100mg capsule PO SCH ×2 (08:00→21:31)
[2021-07-09] MEDS: K and/or MAG REPLACEMENT MC SCH ×4 (08:00→20:00)
[2021-07-09] MEDS: lactobacillus rhamnosus 10,000 MMU CELLS/CAPSULE PO SCH ×2 (08:36→21:26)
[2021-07-09] MEDS: guaiFENesin ER 600mg tablet PO SCH ×2 (08:36→21:30)
[2021-07-09] MEDS: methylPREDNISolone sod succ/PF 40mg inj. IV SCH ×2 (08:36→21:27)
[2021-07-09] MEDS: atorvastatin 10mg tablet PO SCH (08:37)
[2021-07-09] MEDS: pantoprazole 40mg Tablet.DR PO SCH (08:37)
[2021-07-09] MEDS: sodium chloride 1gm tablet PO SCH ×4 (08:37→21:30)
[2021-07-09] MEDS: tamsulosin 0.4mg capsule PO SCH (08:38)
[2021-07-09] MEDS: amLODIPine 2.5mg tablet PO SCH (08:38)
[2021-07-09] MEDS: levoTHYROXINE 88mcg tablet PO SCH (08:38)
[2021-07-09] MEDS: losartan 25mg tablet PO SCH (08:39)
[2021-07-09] MEDS: heparin, porcine 5000 units/ml vial SQ SCH ×2 (08:39→21:22)
[2021-07-09] MEDS: cefepime 2g/NS 100ml ADVANTAGE 100 ML IV SCH ×2 (08:41→21:26)
[2021-07-09 11:00] VITALS: BP 104/71
[2021-07-09] MEDS: salt irrigation nasal spray 45 ML SPRAY NS PRN (14:02)
[2021-07-09 15:00] VITALS: BP 141/65
[2021-07-09 18:00] VITALS: BP 117/78
--- NOTE | 2021-07-09 18:11 | NUR ---
spoke to Dr doing biopsy tomorrow, he stated need to hold blood thinners and NPO after 0000.
--- NOTE | 2021-07-09 18:30 | NUR ---
Patient in room PCU 3028. I have received report from carmencita vasquez and had the opportunity to ask questions and assume patient care.
[2021-07-09] MEDS: LORazepam 2 mg/ml vial IV PRN (21:21)
[2021-07-09] MEDS: finasteride 5mg tablet PO SCH (21:47)
[2021-07-09 22:00] VITALS: BP 126/65
[2021-07-10] VITALS (14 sets, daily range): BP systolic 125–153; BP diastolic 65–92
[2021-07-10] MEDS: clindamycin 600mg/D5W 50ml 50 ML IV SCH ×4 (02:47→21:39)
[2021-07-10] MEDS: ipratropium/albuterol 3ml nebule NEB SCH ×6 (03:08→23:35)
--- NOTE | 2021-07-10 06:14 | NUR ---
Problems reprioritized. Patient report given, questions answered & plan of care reviewed with Sal MIR.
[2021-07-10] MEDS: budesonide 0.5mg/2ml UD nebule IH SCH ×2 (07:25→19:41)
[2021-07-10] MEDS: pantoprazole 40mg Tablet.DR PO SCH (07:51)
[2021-07-10] MEDS: methylPREDNISolone sod succ/PF 40mg inj. IV SCH ×2 (07:52→20:19)
[2021-07-10] MEDS: losartan 25mg tablet PO SCH (07:56)
[2021-07-10] MEDS: guaiFENesin ER 600mg tablet PO SCH ×2 (07:57→20:11)
[2021-07-10] MEDS: levoTHYROXINE 88mcg tablet PO SCH (07:58)
[2021-07-10] MEDS: atorvastatin 10mg tablet PO SCH (07:58)
[2021-07-10] MEDS: tamsulosin 0.4mg capsule PO SCH (07:58)
[2021-07-10] MEDS: lactobacillus rhamnosus 10,000 MMU CELLS/CAPSULE PO SCH ×2 (07:58→20:17)
[2021-07-10] MEDS: amLODIPine 2.5mg tablet PO SCH (07:59)
[2021-07-10] MEDS: sodium chloride 1gm tablet PO SCH ×4 (07:59→20:17)
[2021-07-10] MEDS: K and/or MAG REPLACEMENT MC SCH ×2 (08:00→20:00)
[2021-07-10] MEDS: docusate sod 100mg capsule PO SCH ×2 (08:00→20:00)
[2021-07-10] MEDS: cefepime 2g/NS 100ml ADVANTAGE 100 ML IV SCH ×2 (09:10→20:22)
[2021-07-10] MEDS ORDERED: fentaNYL/PF 50MCG/1 ML 2ML syringe ONE (09:52)
[2021-07-10] MEDS ORDERED: midazolam 1 mg/ML 2ml injection ONE (09:52)
--- NOTE | 2021-07-10 10:27 | NUR ---
patient arrive to PCU at 10.00 am on a wheelchair accompanied by staff nurse, report was given on the phone to charge nurse, patient was alert and oriented with stable vital signs, patient has a left PIV flushed and patent. patient was oriented to room and equipment , patient demonstrate how to use a call momin
--- NOTE | 2021-07-10 11:04 | NUR ---
patient is off unit for procedure Addendum: 07/10/21 at 1105 by Sal Cruz RN Amended: Links added.
[2021-07-10] MEDS ORDERED: iohexol 300mg/ml 100ml inj. ONE ×2 (14:39→15:55)
--- NOTE | 2021-07-10 17:35 | NUR ---
DR. Hoang was paged about the patient NPO status, pending order from MD patient has done chest tube reinsertion and CT of the abdomen with contrast is done is there any more indication to keep the patient NPO ?.patient is not in maintenance fluid leonard RN,[phone]
--- NOTE | 2021-07-10 18:30 | NUR ---
Patient in room PCU 3028. I have received report from Sal MIR and had the opportunity to ask questions and assume patient care.
[2021-07-10] MEDS: salt irrigation nasal spray 45 ML SPRAY NS PRN (20:20)
[2021-07-10] MEDS: finasteride 5mg tablet PO SCH (20:21)
[2021-07-10] MEDS: magnesium hydroxide 30ml (MOM) UD suspension PO PRN (20:24)
[2021-07-10] MEDS: temazepam 15mg capsule PO PRN (21:40)
[2021-07-11] MEDS: normal saline 1000ml 1,000 ML IV SCH (01:34)
[2021-07-11 02:00] VITALS: BP 151/83
[2021-07-11] MEDS: clindamycin 600mg/D5W 50ml 50 ML IV SCH ×4 (02:35→20:53)
[2021-07-11] MEDS: ipratropium/albuterol 3ml nebule NEB SCH ×6 (02:37→23:18)
--- NOTE | 2021-07-11 06:10 | NUR ---
Problems reprioritized. Patient report given, questions answered & plan of care reviewed with Flori MIR.
--- NOTE | 2021-07-11 06:35 | NUR ---
DEIRDRE documentation: I have reviewed and agree with all interventions, assessments performed and documented by Neli MIR.
--- NOTE | 2021-07-11 06:35 | NUR ---
Memo Medication Administration: For this medication-pass time frame, all medication were reviewed, dispensed, administered and documented per hospital policy by Neli MIR.
[2021-07-11 07:00] VITALS: BP 140/66
--- NOTE | 2021-07-11 07:44 | NUR ---
Patient in room PCU 3028. I have received report from ADEOLA Redd and had the opportunity to ask questions and assume patient care. Patient awake in bed and in no acute distress.
[2021-07-11] MEDS: docusate sod 100mg capsule PO SCH ×2 (08:00→19:38)
[2021-07-11] MEDS: K and/or MAG REPLACEMENT MC SCH ×2 (08:00→19:39)
[2021-07-11] MEDS: levoTHYROXINE 88mcg tablet PO SCH (08:14)
[2021-07-11] MEDS: tamsulosin 0.4mg capsule PO SCH (08:15)
[2021-07-11] MEDS: amLODIPine 2.5mg tablet PO SCH (08:15)
[2021-07-11] MEDS: atorvastatin 10mg tablet PO SCH (08:15)
[2021-07-11] MEDS: lactobacillus rhamnosus 10,000 MMU CELLS/CAPSULE PO SCH ×2 (08:16→19:27)
[2021-07-11] MEDS: pantoprazole 40mg Tablet.DR PO SCH (08:16)
[2021-07-11] MEDS: guaiFENesin ER 600mg tablet PO SCH ×2 (08:16→19:27)
[2021-07-11] MEDS: methylPREDNISolone sod succ/PF 40mg inj. IV SCH ×2 (08:17→19:24)
[2021-07-11] MEDS: losartan 25mg tablet PO SCH (08:17)
[2021-07-11] MEDS: sodium chloride 1gm tablet PO SCH ×4 (08:17→20:57)
[2021-07-11] MEDS: budesonide 0.5mg/2ml UD nebule IH SCH ×2 (08:24→19:20)
[2021-07-11] MEDS: cefepime 2g/NS 100ml ADVANTAGE 100 ML IV SCH ×2 (09:31→19:26)
[2021-07-11 11:00] VITALS: BP 141/64
--- NOTE | 2021-07-11 11:43 | NUR ---
Orders for heart healthy diet and NPO after midnight put in per Dr. Hoang.
--- NOTE | 2021-07-11 13:03 | NUR ---
Patient was alert and eating.
[2021-07-11 15:00] VITALS: BP 161/66
[2021-07-11 18:00] VITALS: BP 152/63
--- NOTE | 2021-07-11 18:18 | NUR ---
Student Medication Administration: For this medication-pass time frame, all medication were reviewed, dispensed, administered and documented per hospital policy by owen Araujo nurse.
--- NOTE | 2021-07-11 18:18 | NUR ---
Student documentation: I have reviewed and agree with all interventions, assessments performed and documented by ADEOLA Ruby. Addendum: 07/11/21 at 1819 by Flori Rosenberg RN assessments performed and documented by ADEOLA Araujo.
--- NOTE | 2021-07-11 18:30 | NUR ---
Patient in room PCU 3028. I have received report from Flori MIR and had the opportunity to ask questions and assume patient care.
[2021-07-11] MEDS: magnesium hydroxide 30ml (MOM) UD suspension PO PRN (19:27)
--- NOTE | 2021-07-11 19:48 | NUR ---
Patient given medications due. Patient satisfied with care.
[2021-07-11] MEDS: salt irrigation nasal spray 45 ML SPRAY NS PRN (20:00)
[2021-07-11] MEDS: finasteride 5mg tablet PO SCH (20:57)
[2021-07-11 22:00] VITALS: BP 146/66
[2021-07-11] MEDS: temazepam 15mg capsule PO PRN (22:03)
--- NOTE | 2021-07-11 23:45 | NUR ---
Charting for noc shift 07/05 completed now. left at shift change d/t evacuation at home unable to complete charting at that time.
[2021-07-12 02:00] VITALS: BP 138/68
[2021-07-12] MEDS: ipratropium/albuterol 3ml nebule NEB SCH ×6 (02:33→23:31)
[2021-07-12] MEDS: clindamycin 600mg/D5W 50ml 50 ML IV SCH ×4 (03:40→19:29)
--- NOTE | 2021-07-12 06:12 | NUR ---
Memo documentation: I have reviewed and agree with all interventions, assessments performed and documented by Neli MIR.
--- NOTE | 2021-07-12 06:13 | NUR ---
Memo Medication Administration: For this medication-pass time frame, all medication were reviewed, dispensed, administered and documented per hospital policy by Neli MIR.
--- NOTE | 2021-07-12 06:45 | NUR ---
Problems reprioritized. Patient report given, questions answered & plan of care reviewed with Katlyn MIR.
[2021-07-12 07:00] VITALS: BP 147/77
[2021-07-12] MEDS: pantoprazole 40mg Tablet.DR PO SCH (07:30)
--- NOTE | 2021-07-12 07:40 | NUR ---
Patient in room PCU 3028. I have received report from Tramaine and had the opportunity to ask questions and assume patient care.
[2021-07-12] MEDS: K and/or MAG REPLACEMENT MC SCH ×2 (08:00→20:00)
--- NOTE | 2021-07-12 08:06 | NUR ---
PAGER ID: [phone] MESSAGE: Pt Oleksandr Lambert [phone] is NPO, and I don't know why. He has a chest CT this AM but they don't need him NPO, can I feed him? Pls advise, Katlyn [id number]
[2021-07-12] MEDS: budesonide 0.5mg/2ml UD nebule IH SCH ×2 (08:47→19:19)
[2021-07-12] MEDS: cefepime 2g/NS 100ml ADVANTAGE 100 ML IV SCH ×2 (09:10→21:10)
[2021-07-12] MEDS: sodium chloride 1gm tablet PO SCH ×4 (09:10→19:28)
[2021-07-12] MEDS: docusate sod 100mg capsule PO SCH ×2 (09:10→19:28)
[2021-07-12] MEDS: methylPREDNISolone sod succ/PF 40mg inj. IV SCH ×2 (09:10→19:28)
[2021-07-12] MEDS: guaiFENesin ER 600mg tablet PO SCH ×2 (09:10→19:28)
[2021-07-12] MEDS: atorvastatin 10mg tablet PO SCH (09:11)
[2021-07-12] MEDS: losartan 25mg tablet PO SCH (09:11)
[2021-07-12] MEDS: amLODIPine 2.5mg tablet PO SCH (09:12)
[2021-07-12] MEDS: lactobacillus rhamnosus 10,000 MMU CELLS/CAPSULE PO SCH ×2 (09:12→19:28)
[2021-07-12] MEDS: tamsulosin 0.4mg capsule PO SCH (09:12)
[2021-07-12] MEDS: levoTHYROXINE 88mcg tablet PO SCH (09:12)
[2021-07-12 09:13] LABS: BASOPHILS % (AUTO) 0.2 % (0-1); EOSINOPHILS % (AUTO) 0.1 % (0-6); HEMATOCRIT 36.7 % (42.0-52.0); HEMOGLOBIN 12.1 g/dl (14.0-17.9); LYMPHOCYTES # (AUTO) 0.5 X10'3 (1.1-4.8); LYMPHOCYTES % (AUTO) 4.2 % (21-51); MEAN CORPUSCULAR HEMOGLOBIN 28.1 PG (27.0-31.0); MEAN CORPUSCULAR HGB CONC 32.9 g/dL (33.0-36.5); MEAN CORPUSCULAR VOLUME 85.5 FL (78-98); MONOCYTES # (AUTO) 1.2 X10'3 (0-0.9); MONOCYTES % (AUTO) 10.2 % (2-12); NEUTROPHILS # (AUTO) 10.2 X10'3 (1.8-7.7); NEUTROPHILS % (AUTO) 85.3 % (42-75); PLATELET COUNT 230 X10'3 (140-440)
[2021-07-12 09:28] LABS: ALBUMIN 2.8 G/DL (3.4-5.0); ANION GAP 8 (8-16); BLOOD UREA NITROGEN 22 MG/DL (7-18); BUN/CREATININE RATIO 31.9 (5.4-32.0); CALCIUM 8.8 MG/DL (8.5-10.1); CHLORIDE 100 MMOL/L (99-107); CREATININE 0.69 MG/DL (0.60-1.10); GLUCOSE 97 MG/DL (70-104); POTASSIUM 4.3 MMOL/L (3.5-5.1); SODIUM 133 MMOL/L (135-145); TOTAL CARBON DIOXIDE 24.8 MMOL/L (24-32); eGFR > 90 ML/MIN
--- NOTE | 2021-07-12 10:05 | NUR ---
Gretchen informed of abnormal CT
[2021-07-12 11:00] VITALS: BP 100/50
--- NOTE | 2021-07-12 12:56 | NUR ---
Gretchen's office called to inform pt will have surgery tomorrow, have pt NPO at midnight
[2021-07-12 15:00] VITALS: BP 112/52
[2021-07-12 18:00] VITALS: BP 127/63
--- NOTE | 2021-07-12 18:00 | NUR ---
Patient in room PCU 3028. I have received report from Mychal and had the opportunity to ask questions and assume patient care.
[2021-07-12] MEDS: LORazepam 2 mg/ml vial IV PRN (19:28)
[2021-07-12] MEDS: salt irrigation nasal spray 45 ML SPRAY NS PRN (19:36)
[2021-07-12] MEDS: finasteride 5mg tablet PO SCH (19:36)
[2021-07-12] MEDS: temazepam 15mg capsule PO PRN (21:09)
[2021-07-12 22:00] VITALS: BP 132/60
[2021-07-13] MEDS: normal saline 1000ml 1,000 ML IV SCH (01:34)
[2021-07-13 02:00] VITALS: BP 115/54
[2021-07-13] MEDS: clindamycin 600mg/D5W 50ml 50 ML IV SCH ×4 (03:09→19:16)
[2021-07-13] MEDS: ipratropium/albuterol 3ml nebule NEB SCH ×6 (03:50→23:48)
--- NOTE | 2021-07-13 05:48 | NUR ---
Dr Godinez stepped into pt room around 2200 on 07/12, informed the pt of surgery on 07/13 at 1300. Pt asked questions and the Dr was attentive and responsive to all questions, pt stated he felt less anxious after conversation.
[2021-07-13 06:00] VITALS: BP 147/71
--- NOTE | 2021-07-13 06:20 | NUR ---
Problems reprioritized. Patient report given, questions answered & plan of care reviewed with Dexter.
[2021-07-13] MEDS: methylPREDNISolone sod succ/PF 40mg inj. IV SCH ×2 (07:48→19:16)
[2021-07-13] MEDS: docusate sod 100mg capsule PO SCH ×3 (07:49→20:00)
[2021-07-13] MEDS: amLODIPine 2.5mg tablet PO SCH (07:49)
[2021-07-13] MEDS: atorvastatin 10mg tablet PO SCH (07:49)
[2021-07-13] MEDS: sodium chloride 1gm tablet PO SCH ×4 (07:49→19:16)
[2021-07-13] MEDS: guaiFENesin ER 600mg tablet PO SCH ×2 (07:49→19:17)
[2021-07-13] MEDS: lactobacillus rhamnosus 10,000 MMU CELLS/CAPSULE PO SCH ×2 (07:49→19:17)
[2021-07-13] MEDS: tamsulosin 0.4mg capsule PO SCH (07:50)
[2021-07-13] MEDS: pantoprazole 40mg Tablet.DR PO SCH (07:50)
[2021-07-13] MEDS: losartan 25mg tablet PO SCH (07:51)
[2021-07-13] MEDS: levoTHYROXINE 88mcg tablet PO SCH (07:51)
[2021-07-13] MEDS: K and/or MAG REPLACEMENT MC SCH ×2 (08:00→20:00)
[2021-07-13] MEDS: budesonide 0.5mg/2ml UD nebule IH SCH ×2 (08:55→19:53)
[2021-07-13] MEDS: cefepime 2g/NS 100ml ADVANTAGE 100 ML IV SCH ×2 (09:08→21:54)
[2021-07-13] MEDS: salt irrigation nasal spray 45 ML SPRAY NS PRN ×2 (09:09→19:16)
[2021-07-13 11:00] VITALS: BP 139/60
--- NOTE | 2021-07-13 13:26 | NUR ---
Paged Dr Hoang PAGER ID: [phone] MESSAGE: Room 3028A, Oleksandr Lambert. pt will not have surgery today d/t no avail beds in ICU. May I feed pt? Thanks, Corry [phone]
[2021-07-13 15:00] VITALS: BP 118/58
[2021-07-13 18:00] VITALS: BP 121/73
--- NOTE | 2021-07-13 19:03 | NUR ---
Problems reprioritized. Patient report given, questions answered & plan of care reviewed with ADEOLA Berkowitz.
[2021-07-13] MEDS: finasteride 5mg tablet PO SCH (19:16)
[2021-07-13] MEDS ORDERED: heparin, porcine 5000 units/ml vial SQ SCH (20:00)
[2021-07-13] MEDS: temazepam 15mg capsule PO PRN (21:43)
[2021-07-13 22:00] VITALS: BP 125/59
[2021-07-14] VITALS (20 sets, daily range): BP systolic 56–199; BP diastolic 33–77
[2021-07-14] MEDS: clindamycin 600mg/D5W 50ml 50 ML IV SCH ×4 (02:00→21:29)
[2021-07-14] MEDS: ipratropium/albuterol 3ml nebule NEB SCH ×5 (03:34→19:19)
--- NOTE | 2021-07-14 05:49 | NUR ---
Missed ABX treatment at 0200, will notify day shift
--- NOTE | 2021-07-14 06:45 | NUR ---
Problems reprioritized. Patient report given, questions answered & plan of care reviewed with Dexter.
[2021-07-14] MEDS: docusate sod 100mg capsule PO SCH (08:00)
[2021-07-14] MEDS: K and/or MAG REPLACEMENT MC SCH ×2 (08:00→20:00)
[2021-07-14] MEDS: budesonide 0.5mg/2ml UD nebule IH SCH ×2 (08:22→19:19)
[2021-07-14] MEDS: salt irrigation nasal spray 45 ML SPRAY NS PRN (08:31)
[2021-07-14] MEDS: losartan 25mg tablet PO SCH (08:32)
[2021-07-14] MEDS: sodium chloride 1gm tablet PO SCH ×4 (08:32→21:00)
[2021-07-14] MEDS: atorvastatin 10mg tablet PO SCH (08:32)
[2021-07-14] MEDS: amLODIPine 2.5mg tablet PO SCH (08:32)
[2021-07-14] MEDS: pantoprazole 40mg Tablet.DR PO SCH (08:32)
[2021-07-14] MEDS: tamsulosin 0.4mg capsule PO SCH (08:32)
[2021-07-14] MEDS: levoTHYROXINE 88mcg tablet PO SCH (08:32)
[2021-07-14] MEDS: guaiFENesin ER 600mg tablet PO SCH ×2 (08:33→20:00)
[2021-07-14] MEDS: methylPREDNISolone sod succ/PF 40mg inj. IV SCH ×2 (08:33→21:28)
[2021-07-14] MEDS: lactobacillus rhamnosus 10,000 MMU CELLS/CAPSULE PO SCH ×2 (08:33→21:28)
[2021-07-14] MEDS: cefepime 2g/NS 100ml ADVANTAGE 100 ML IV SCH ×2 (09:40→22:39)
--- NOTE | 2021-07-14 13:27 | NUR ---
Pt to OR
--- NOTE | 2021-07-14 13:45 | NUR ---
All patients belongings were packed up and are at the CRN station. Will be moved to ICU once we known which room he will be going to. Personal belongings include upper dentures, cell phone and gourmet coffee attendant along with other items.
[2021-07-14] MEDS ORDERED: sterile Talc 2 GM powder vial IPL ONE (13:55)
[2021-07-14] MEDS ORDERED: BUPIVAcaine/PF 2.5mg/ml (0.25%) 10ml vial ONE (14:10)
[2021-07-14] MEDS ORDERED: BUPIVAcaine 0.5% inj/PF 30 ML ONE (14:10)
[2021-07-14] MEDS ORDERED: BUPIVACAINE liposomal/PF 13.3 MG/ML vial IM ONE (14:11)
[2021-07-14] MEDS ORDERED: fentaNYL/PF 50MCG/1 ML 2ML syringe ONE ×2 (14:31→15:42)
[2021-07-14] MEDS ORDERED: midazolam 1 mg/ML 2ml injection ONE (14:32)
[2021-07-14] MEDS ORDERED: midazolam 100mg in NS 100ml 100 ML IV PRN (14:40)
[2021-07-14] MEDS ORDERED: FENTANYL-0.9 % NACL/PF 100 ML IV PRN (14:40)
[2021-07-14] MEDS ORDERED: LIDOcaine 2% (20mg/ml) 5ml vial ONE (14:42)
[2021-07-14] MEDS ORDERED: rocuronium 10mg/ml inj IV ONE ×2 (14:42→17:10)
[2021-07-14] MEDS ORDERED: propofol inj 20 ML IV ONE (14:42)
[2021-07-14] MEDS ORDERED: glycopyrrolate 0.2mg/ml inj ONE (17:10)
[2021-07-14] MEDS ORDERED: phenylephrine 10mg/ml inj. ONE (17:10)
[2021-07-14] MEDS ORDERED: albumin (Human) 5% 250ml 250 ML IV ONE ×3 (17:10→21:20)
--- NOTE | 2021-07-14 17:48 | NUR ---
Patient arrived via icu bed to 2039. patient systolic elevated with diastolic labile. Dr. Dewitt gave report. patient to get fent and versed, cleocin okay to given now per dr. dewitt. left chest tube with small air leak (dr. martinez at bedside and aware). dr. martinez has given orders to wean to extubate and after extubation change to suction. will continue to monitor patient.
[2021-07-14 18:10] LABS: ABG BASE EXCESS -2.8 mmol/L (-2.0-2.0); ABG HCO3 24.7 mmol/L (22.0-26.0); ABG OXYGEN SATURATION 98.1 % (94-97); ABG PCO2 (T) 52.9 mmHg (35.0-48.0); ABG PO2 (T) 133.9 mmHg (75.0-100.0); FCOHb 0.3 % (0.0-3.9); FMetHb 0.5 % (0.0-1.5); FO2Hb 97.3 % (94-97); PATIENT TEMPERATURE 35.9; PEEP 5 cm H2O; RESPIRATORY RATE 12 b/min; TIDAL VOLUME 550 mL; TOTAL HEMOGLOBIN 11.6 G/dl (14.0-18.0)
--- NOTE | 2021-07-14 18:48 | NUR ---
Report given to Nahomy Bryan RN. SBAR report given. patient on fent and versed with ns running for cleocin only at 20ml/hr.
[2021-07-14] MEDS: heparin, porcine 5000 units/ml vial SQ SCH (20:00)
[2021-07-14] MEDS: finasteride 5mg tablet PO SCH (21:00)
[2021-07-14] MEDS ORDERED: albumin (Human) 5% 250ml 500 ML IV ONE (21:24)
[2021-07-14] MEDS: docusate sodium 100mg/10ml UD cup OGT SCH (21:28)
[2021-07-15] VITALS (30 sets, daily range): BP systolic 77–169; BP diastolic 28–64
[2021-07-15] MEDS ORDERED: albumin (Human) 5% 250ml 250 ML IV ONE ×2 (00:05)
[2021-07-15] MEDS: clindamycin 600mg/D5W 50ml 50 ML IV SCH ×4 (02:00→20:16)
[2021-07-15] MEDS: ipratropium/albuterol 3ml nebule NEB SCH ×6 (02:10→23:08)
[2021-07-15 03:29] LABS: ABG BASE EXCESS -2.8 mmol/L (-2.0-2.0); ABG HCO3 20.7 mmol/L (22.0-26.0); ABG OXYGEN SATURATION 96.9 % (94-97); ABG PCO2 (T) 31.8 mmHg (35.0-48.0); ABG PO2 (T) 104.2 mmHg (75.0-100.0); FCOHb 0.3 % (0.0-3.9); FMetHb 0.5 % (0.0-1.5); FO2Hb 96.1 % (94-97); PATIENT TEMPERATURE 37.5; PEEP 5 cm H2O; RESPIRATORY RATE 16 b/min; TIDAL VOLUME 550 mL
[2021-07-15 03:50] LABS: BASOPHILS % (AUTO) 0.1 % (0-1); EOSINOPHILS % (AUTO) 0 % (0-6); HEMATOCRIT 25.2 % (42.0-52.0); HEMOGLOBIN 8.4 g/dl (14.0-17.9); LYMPHOCYTES # (AUTO) 0.2 X10'3 (1.1-4.8); LYMPHOCYTES % (AUTO) 1.2 % (21-51); MEAN CORPUSCULAR HEMOGLOBIN 28.5 PG (27.0-31.0); MEAN CORPUSCULAR HGB CONC 33.2 g/dL (33.0-36.5); MEAN CORPUSCULAR VOLUME 85.7 FL (78-98); MEAN PLATELET VOLUME 9.1 FL (7.4-10.4); MONOCYTES # (AUTO) 0.6 X10'3 (0-0.9); NEUTROPHILS # (AUTO) 13.5 X10'3 (1.8-7.7); NEUTROPHILS % (AUTO) 94.7 % (42-75); PLATELET COUNT 150 X10'3 (140-440); RED BLOOD COUNT 2.94 X10'6 (4.70-6.10); RED CELL DISTRIBUTION WIDTH 16.7 % (11.5-14.5); WHITE BLOOD COUNT 14.2 X10'3 (4.5-11.0)
[2021-07-15 04:18] LABS: ALANINE AMINOTRANSFERASE 29 U/L (12-78); ALBUMIN/GLOBULIN RATIO 1.4 (1.1-1.5); ALKALINE PHOSPHATASE 39 IU/L (46-116); ANION GAP 8 (8-16); ASPARTATE AMINO TRANSFERASE 16 U/L (10-37); BILIRUBIN,TOTAL 0.5 MG/DL (0.1-1.0); BLOOD UREA NITROGEN 22 MG/DL (7-18); BUN/CREATININE RATIO 31.4 (5.4-32.0); CHLORIDE 103 MMOL/L (99-107); GLUCOSE 122 MG/DL (70-104); POTASSIUM 3.9 MMOL/L (3.5-5.1); SODIUM 135 MMOL/L (135-145); TOTAL CARBON DIOXIDE 23.6 MMOL/L (24-32); TOTAL PROTEIN 5.1 G/DL (6.4-8.2); eGFR > 90 ML/MIN
[2021-07-15] MEDS: budesonide 0.5mg/2ml UD nebule IH SCH ×2 (07:42→19:14)
[2021-07-15] MEDS: K and/or MAG REPLACEMENT MC SCH ×2 (08:00→20:00)
[2021-07-15] MEDS: losartan 25mg tablet PO SCH (08:00)
[2021-07-15] MEDS: cefepime 2g/NS 100ml ADVANTAGE 100 ML IV SCH ×2 (08:28→20:17)
[2021-07-15] MEDS: docusate sodium 100mg/10ml UD cup OGT SCH ×2 (08:28→20:17)
[2021-07-15] MEDS: methylPREDNISolone sod succ/PF 40mg inj. IV SCH ×2 (08:31→20:17)
[2021-07-15] MEDS: lactobacillus rhamnosus 10,000 MMU CELLS/CAPSULE PO SCH ×2 (08:33→20:17)
[2021-07-15] MEDS: guaiFENesin ER 600mg tablet PO SCH ×2 (08:33→20:17)
[2021-07-15] MEDS: atorvastatin 10mg tablet PO SCH (08:34)
[2021-07-15] MEDS: sodium chloride 1gm tablet PO SCH ×4 (08:34→20:17)
[2021-07-15] MEDS: levoTHYROXINE 88mcg tablet PO SCH (08:34)
[2021-07-15] MEDS: tamsulosin 0.4mg capsule PO SCH (08:35)
[2021-07-15] MEDS: pantoprazole 40mg Tablet.DR PO SCH (08:35)
[2021-07-15] MEDS: heparin, porcine 5000 units/ml vial SQ SCH ×2 (08:39→20:00)
[2021-07-15] MEDS: amLODIPine 2.5mg tablet PO SCH (08:40)
[2021-07-15] MEDS ORDERED: CADD PCA waste documentation MC PRN (11:00)
[2021-07-15] MEDS ORDERED: racepinephrine 11.25mg/0.5ml nebule IH PRN (11:00)
[2021-07-15] MEDS ORDERED: naloxone 0.4 mg/ml inj IV PRN (11:00)
--- NOTE | 2021-07-15 14:39 | NUR ---
Reassessment: Pt to OR for thoracoscopic pleurodesis, wedge resection, and lung biopsy 07/14; extubated post-op today at 11:05 per EMR. Diet advanced to full liquids post-op, dinner to be first meal tray following extubation. Prior to OR pt eating well with mostly 75% PO intake. LBM 07/13, receiving routine and PRN bowel care. Will continue to follow and make recommendations as appropriate. Recs: 1. Advance to regular diet as medically indicate 2. Routine bowel care 3. Weekly scaled weights Addendum: 07/15/21 at [address] Amended: Links added.
[2021-07-15] MEDS ORDERED: metoprolol tartrate 25mg tablet PO STA (17:51)
[2021-07-15] MEDS: morphine 2 MG/ML inj. syringe IV PRN (17:57)
[2021-07-15] MEDS ORDERED: mineral oil/petrolatum ophthal oint EACHEYE SCH (20:00)
[2021-07-15] MEDS: finasteride 5mg tablet PO SCH (20:17)
[2021-07-16] VITALS (20 sets, daily range): BP systolic 122–185; BP diastolic 53–79
[2021-07-16] MEDS: clindamycin 600mg/D5W 50ml 50 ML IV SCH ×4 (01:41→20:18)
[2021-07-16] MEDS: morphine 2 MG/ML inj. syringe IV PRN (01:42)
[2021-07-16] MEDS: ipratropium/albuterol 3ml nebule NEB SCH ×6 (03:06→23:00)
[2021-07-16 03:40] LABS: BASOPHILS # (AUTO) 0.1 X10'3 (0-0.2); BASOPHILS % (AUTO) 0.4 % (0-1); EOSINOPHILS % (AUTO) 0 % (0-6); HEMATOCRIT 33.9 % (42.0-52.0); HEMOGLOBIN 11.1 g/dl (14.0-17.9); LYMPHOCYTES # (AUTO) 0.2 X10'3 (1.1-4.8); LYMPHOCYTES % (AUTO) 1.4 % (21-51); MEAN CORPUSCULAR HEMOGLOBIN 28.2 PG (27.0-31.0); MEAN CORPUSCULAR HGB CONC 32.6 g/dL (33.0-36.5); MEAN CORPUSCULAR VOLUME 86.5 FL (78-98); MEAN PLATELET VOLUME 9.2 FL (7.4-10.4); MONOCYTES # (AUTO) 0.5 X10'3 (0-0.9); MONOCYTES % (AUTO) 3.6 % (2-12); NEUTROPHILS % (AUTO) 94.6 % (42-75); PLATELET COUNT 170 X10'3 (140-440); RED BLOOD COUNT 3.92 X10'6 (4.70-6.10); RED CELL DISTRIBUTION WIDTH 17.2 % (11.5-14.5); WHITE BLOOD COUNT 13.7 X10'3 (4.5-11.0)
[2021-07-16 03:53] LABS: ALANINE AMINOTRANSFERASE 32 U/L (12-78); ALBUMIN 2.8 G/DL (3.4-5.0); ALKALINE PHOSPHATASE 51 IU/L (46-116); ANION GAP 6 (8-16); ASPARTATE AMINO TRANSFERASE 21 U/L (10-37); BILIRUBIN,TOTAL 0.4 MG/DL (0.1-1.0); BLOOD UREA NITROGEN 17 MG/DL (7-18); BUN/CREATININE RATIO 23.3 (5.4-32.0); CALCIUM 8.4 MG/DL (8.5-10.1); CHLORIDE 103 MMOL/L (99-107); CREATININE 0.73 MG/DL (0.60-1.10); GLUCOSE 130 MG/DL (70-104); POTASSIUM 4.1 MMOL/L (3.5-5.1); SODIUM 135 MMOL/L (135-145); TOTAL PROTEIN 5.7 G/DL (6.4-8.2); eGFR > 90 ML/MIN
[2021-07-16] MEDS: levoTHYROXINE 88mcg tablet PO SCH (07:22)
[2021-07-16] MEDS: tamsulosin 0.4mg capsule PO SCH (07:22)
[2021-07-16] MEDS: pantoprazole 40mg Tablet.DR PO SCH (07:22)
[2021-07-16] MEDS: atorvastatin 10mg tablet PO SCH (07:22)
[2021-07-16] MEDS: methylPREDNISolone sod succ/PF 40mg inj. IV SCH ×2 (07:23→19:19)
[2021-07-16] MEDS: amLODIPine 2.5mg tablet PO SCH (07:23)
[2021-07-16] MEDS: docusate sodium 100mg/10ml UD cup OGT SCH ×2 (07:23→20:54)
[2021-07-16] MEDS: sodium chloride 1gm tablet PO SCH ×4 (07:23→20:18)
[2021-07-16] MEDS: lactobacillus rhamnosus 10,000 MMU CELLS/CAPSULE PO SCH ×2 (07:23→19:19)
[2021-07-16] MEDS: losartan 25mg tablet PO SCH (07:23)
[2021-07-16] MEDS: heparin, porcine 5000 units/ml vial SQ SCH ×2 (07:33→19:19)
[2021-07-16] MEDS: budesonide 0.5mg/2ml UD nebule IH SCH ×2 (07:51→19:54)
[2021-07-16] MEDS: guaiFENesin ER 600mg tablet PO SCH ×2 (08:00→19:19)
[2021-07-16] MEDS: K and/or MAG REPLACEMENT MC SCH ×2 (08:15→20:00)
[2021-07-16] MEDS: cefepime 2g/NS 100ml ADVANTAGE 100 ML IV SCH ×2 (08:40→20:00)
--- NOTE | 2021-07-16 15:09 | NUR ---
removed pt's arterial line in the right radial artery. bleeding controlled and pt tolerated procedure well. catheter remained in tact after removal
--- NOTE | 2021-07-16 17:39 | NUR ---
triple lumen central line removed from left IJ vein. 2 sutures removed from skin and catheter remained intact while removing. dressing applied after bleeding controlled. pt tolerated procedure well and no complications noted.
[2021-07-16] MEDS: salt irrigation nasal spray 45 ML SPRAY NS PRN (20:17)
[2021-07-16] MEDS: finasteride 5mg tablet PO SCH (20:18)
--- NOTE | 2021-07-16 22:15 | NUR ---
received report from Sho RN in ICU able to ask questions reviewed orders and plan of care. Will assume care of pt when they arrive to unit.
--- NOTE | 2021-07-16 22:45 | NUR ---
Problems reprioritized. Patient report given, questions answered & plan of care reviewed with Tramaine-ADEOLA PCU.
--- NOTE | 2021-07-16 22:45 | NUR ---
pt arrived to unit, already on tele, SR tele #23. VSS. pt alert and oriented, even rise and fall of chest. Chest tube connected to cont. sx @ 20 per md orders. Air leak noted. Per MD notes rogel of air leak and crepitus. no complaints of pain at this time. Chest tube x2 dressings changed with Xeroform gauze and foam tape. Right hand iv dressing changed and cleaned. Will continue to monitor.
[2021-07-17] MEDS: temazepam 15mg capsule PO PRN ×2 (00:38→21:56)
[2021-07-17] MEDS: clindamycin 600mg/D5W 50ml 50 ML IV SCH (01:23)
[2021-07-17 02:00] VITALS: BP 127/58
[2021-07-17] MEDS: ipratropium/albuterol 3ml nebule NEB SCH ×6 (02:36→23:23)
[2021-07-17 06:00] VITALS: BP 149/60
[2021-07-17 06:09] LABS: BASOPHILS % (AUTO) 0.2 % (0-1); EOSINOPHILS % (AUTO) 0 % (0-6); HEMATOCRIT 31.8 % (42.0-52.0); HEMOGLOBIN 10.6 g/dl (14.0-17.9); LYMPHOCYTES # (AUTO) 0.2 X10'3 (1.1-4.8); MEAN CORPUSCULAR HEMOGLOBIN 28.7 PG (27.0-31.0); MEAN CORPUSCULAR HGB CONC 33.2 g/dL (33.0-36.5); MEAN CORPUSCULAR VOLUME 86.5 FL (78-98); MEAN PLATELET VOLUME 9.3 FL (7.4-10.4); MONOCYTES # (AUTO) 0.7 X10'3 (0-0.9); NEUTROPHILS # (AUTO) 5.6 X10'3 (1.8-7.7); NEUTROPHILS % (AUTO) 85.8 % (42-75); PLATELET COUNT 144 X10'3 (140-440); RED BLOOD COUNT 3.67 X10'6 (4.70-6.10); RED CELL DISTRIBUTION WIDTH 17.3 % (11.5-14.5); WHITE BLOOD COUNT 6.6 X10'3 (4.5-11.0)
[2021-07-17 06:28] LABS: ALANINE AMINOTRANSFERASE 31 U/L (12-78); ALBUMIN 2.4 G/DL (3.4-5.0); ALBUMIN/GLOBULIN RATIO 0.9 (1.1-1.5); ALKALINE PHOSPHATASE 48 IU/L (46-116); ANION GAP 6 (8-16); ASPARTATE AMINO TRANSFERASE 19 U/L (10-37); BILIRUBIN,TOTAL 0.3 MG/DL (0.1-1.0); BLOOD UREA NITROGEN 19 MG/DL (7-18); BUN/CREATININE RATIO 27.1 (5.4-32.0); CALCIUM 8.2 MG/DL (8.5-10.1); CHLORIDE 104 MMOL/L (99-107); GLUCOSE 129 MG/DL (70-104); POTASSIUM 4.2 MMOL/L (3.5-5.1); SODIUM 136 MMOL/L (135-145); TOTAL CARBON DIOXIDE 25.6 MMOL/L (24-32); TOTAL PROTEIN 5.2 G/DL (6.4-8.2); eGFR > 90 ML/MIN
--- NOTE | 2021-07-17 06:30 | NUR ---
Patient in room PCU 3026. I have received report from Tramaine and had the opportunity to ask questions and assume patient care.
--- NOTE | 2021-07-17 06:46 | NUR ---
Problems reprioritized. Patient report given, questions answered & plan of care reviewed with Isaac MIR.
[2021-07-17] MEDS: budesonide 0.5mg/2ml UD nebule IH SCH ×2 (07:17→20:41)
[2021-07-17] MEDS: K and/or MAG REPLACEMENT MC SCH ×2 (08:00→20:00)
[2021-07-17] MEDS: levoTHYROXINE 88mcg tablet PO SCH (08:42)
[2021-07-17] MEDS: guaiFENesin ER 600mg tablet PO SCH ×2 (08:42→21:56)
[2021-07-17] MEDS: tamsulosin 0.4mg capsule PO SCH (08:42)
[2021-07-17] MEDS: pantoprazole 40mg Tablet.DR PO SCH (08:43)
[2021-07-17] MEDS: atorvastatin 10mg tablet PO SCH (08:43)
[2021-07-17] MEDS: lactobacillus rhamnosus 10,000 MMU CELLS/CAPSULE PO SCH ×2 (08:43→21:56)
[2021-07-17] MEDS: amLODIPine 2.5mg tablet PO SCH (08:45)
[2021-07-17] MEDS: docusate sodium 100mg/10ml UD cup OGT SCH ×2 (08:45→20:00)
[2021-07-17] MEDS: losartan 25mg tablet PO SCH (08:45)
[2021-07-17] MEDS: heparin, porcine 5000 units/ml vial SQ SCH ×2 (08:46→21:57)
[2021-07-17] MEDS: methylPREDNISolone sod succ/PF 40mg inj. IV SCH ×2 (08:46→20:00)
[2021-07-17] MEDS: sodium chloride 1gm tablet PO SCH ×4 (08:49→21:56)
[2021-07-17 11:00] VITALS: BP 135/67
[2021-07-17 15:00] VITALS: BP 145/67
[2021-07-17 18:00] VITALS: BP 163/91
--- NOTE | 2021-07-17 18:25 | NUR ---
Orientee documentation: I have reviewed and agree with all interventions, assessments performed and documented by Fallon MIR.
--- NOTE | 2021-07-17 18:30 | NUR ---
Patient in room ICU 2037. I have received report from Isaac MIR and had the opportunity to ask questions and assume patient care.
--- NOTE | 2021-07-17 18:50 | NUR ---
Problems reprioritized. Patient report given, questions answered & plan of care reviewed with GABY.
[2021-07-17] MEDS: finasteride 5mg tablet PO SCH (21:00)
[2021-07-17] MEDS: magnesium hydroxide 30ml (MOM) UD suspension PO PRN (21:56)
[2021-07-17 22:00] VITALS: BP 134/82
--- NOTE | 2021-07-17 22:00 | NUR ---
continued monitor of pts chest tube, output minimal crepitus present to left anterior chest migrating to lateral posterior thoracic cavity. Pt alert and oriented RR 18 vss. Pt repositioned for comfort. Chest tube dressing dry and intact. Lost iv acces at 1999 this shift. unable to obtain another iv at this time will continue to try as able. will continue to monitor
[2021-07-18] VITALS (22 sets, daily range): BP systolic 99–140; BP diastolic 47–73
--- NOTE | 2021-07-18 02:00 | NUR ---
Called MD Godinez regarding pts increased crepitus to left anterior portion of chest, noticeable crepitus migrating to bilateral facial cheeks, VSS bp 129/60 94% on 3L NC HR84 RR19. ordered pt to tx to icu. Will call report and transfer pt down theresa
--- NOTE | 2021-07-18 02:15 | NUR ---
called report to DIRECTOR OF CONSERVATIONADEOLA TREVINO. CRN and primary RN to transfer pt to icu now
--- NOTE | 2021-07-18 06:00 | NUR ---
Patient in room ICU 2037. I have received report from Edgardo MIR and had the opportunity to ask questions and assume patient care.
[2021-07-18 06:10] LABS: BASOPHILS # (AUTO) 0.1 X10'3 (0-0.2); EOSINOPHILS % (AUTO) 0.1 % (0-6); HEMATOCRIT 33.4 % (42.0-52.0); HEMOGLOBIN 11.3 g/dl (14.0-17.9); LYMPHOCYTES # (AUTO) 0.5 X10'3 (1.1-4.8); LYMPHOCYTES % (AUTO) 4.9 % (21-51); MEAN CORPUSCULAR HEMOGLOBIN 28.6 PG (27.0-31.0); MEAN CORPUSCULAR VOLUME 84.1 FL (78-98); MEAN PLATELET VOLUME 9.4 FL (7.4-10.4); MONOCYTES # (AUTO) 0.7 X10'3 (0-0.9); MONOCYTES % (AUTO) 7.8 % (2-12); NEUTROPHILS # (AUTO) 8.1 X10'3 (1.8-7.7); NEUTROPHILS % (AUTO) 86.2 % (42-75); PLATELET COUNT 137 X10'3 (140-440); RED BLOOD COUNT 3.97 X10'6 (4.70-6.10); RED CELL DISTRIBUTION WIDTH 17.3 % (11.5-14.5); WHITE BLOOD COUNT 9.4 X10'3 (4.5-11.0)
[2021-07-18 06:37] LABS: ALANINE AMINOTRANSFERASE 30 U/L (12-78); ALBUMIN 2.5 G/DL (3.4-5.0); ALBUMIN/GLOBULIN RATIO 0.9 (1.1-1.5); ALKALINE PHOSPHATASE 53 IU/L (46-116); ANION GAP 4 (8-16); ASPARTATE AMINO TRANSFERASE 23 U/L (10-37); BILIRUBIN,TOTAL 0.4 MG/DL (0.1-1.0); BLOOD UREA NITROGEN 19 MG/DL (7-18); BUN/CREATININE RATIO 26.8 (5.4-32.0); CALCIUM 8.6 MG/DL (8.5-10.1); CHLORIDE 104 MMOL/L (99-107); CREATININE 0.71 MG/DL (0.60-1.10); GLUCOSE 96 MG/DL (70-104); MAGNESIUM 2.1 MG/DL (1.5-2.4); POTASSIUM 4.3 MMOL/L (3.5-5.1); SODIUM 136 MMOL/L (135-145); TOTAL CARBON DIOXIDE 28.5 MMOL/L (24-32); TOTAL PROTEIN 5.3 G/DL (6.4-8.2); eGFR > 90 ML/MIN
--- NOTE | 2021-07-18 06:44 | NUR ---
Problems reprioritized. Patient report given, questions answered & plan of care reviewed with Akanksha MIR.
[2021-07-18] MEDS: tamsulosin 0.4mg capsule PO SCH (07:55)
[2021-07-18] MEDS: docusate sodium 100mg/10ml UD cup OGT SCH ×2 (07:55→19:25)
[2021-07-18] MEDS: atorvastatin 10mg tablet PO SCH (07:55)
[2021-07-18] MEDS: amLODIPine 2.5mg tablet PO SCH (07:55)
[2021-07-18] MEDS: sodium chloride 1gm tablet PO SCH ×4 (07:55→19:25)
[2021-07-18] MEDS: guaiFENesin ER 600mg tablet PO SCH ×2 (07:55→19:26)
[2021-07-18] MEDS: heparin, porcine 5000 units/ml vial SQ SCH ×2 (07:56→19:26)
[2021-07-18] MEDS: losartan 25mg tablet PO SCH (08:00)
[2021-07-18] MEDS: K and/or MAG REPLACEMENT MC SCH ×2 (08:00→19:27)
[2021-07-18] MEDS: lactobacillus rhamnosus 10,000 MMU CELLS/CAPSULE PO SCH ×2 (08:02→19:26)
[2021-07-18] MEDS: methylPREDNISolone sod succ/PF 40mg inj. IV SCH ×2 (08:02→19:25)
[2021-07-18] MEDS: levoTHYROXINE 88mcg tablet PO SCH (08:02)
[2021-07-18] MEDS: pantoprazole 40mg Tablet.DR PO SCH (08:02)
[2021-07-18] MEDS: budesonide 0.5mg/2ml UD nebule IH SCH ×2 (09:14→19:40)
[2021-07-18] MEDS: ipratropium/albuterol 3ml nebule NEB SCH ×5 (09:15→23:21)
--- NOTE | 2021-07-18 09:37 | NUR ---
pt speaking to on the telephone. Pt repositioned and moderate amount of serous fluid noted on pad, chest tube dressing was saturated. Dressing exchanged and pt repositioned to right side. PT at bedside, PT orders need to be reordered, will speak with MD on rounds
--- NOTE | 2021-07-18 18:23 | NUR ---
Problems reprioritized. Patient report given to Katlyn MIR, questions answered & plan of care reviewed with [].
[2021-07-18] MEDS: finasteride 5mg tablet PO SCH (19:25)
[2021-07-18] MEDS: metoprolol tartrate 25mg tablet PO SCH (19:26)
[2021-07-19] VITALS (24 sets, daily range): BP systolic 107–147; BP diastolic 50–78
[2021-07-19] MEDS: ipratropium/albuterol 3ml nebule NEB SCH ×7 (02:52→22:52)
--- NOTE | 2021-07-19 05:04 | NUR ---
ishaan schofield Addendum: 07/19/21 at 0504 by Katlyn Cruz RN Ishaan sotelo provided x 3
[2021-07-19 06:05] LABS: BASOPHILS % (AUTO) 0.1 % (0-1); EOSINOPHILS % (AUTO) 0 % (0-6); HEMATOCRIT 35.4 % (42.0-52.0); HEMOGLOBIN 11.7 g/dl (14.0-17.9); LYMPHOCYTES # (AUTO) 0.3 X10'3 (1.1-4.8); LYMPHOCYTES % (AUTO) 4.6 % (21-51); MEAN CORPUSCULAR HEMOGLOBIN 28.5 PG (27.0-31.0); MEAN CORPUSCULAR HGB CONC 32.9 g/dL (33.0-36.5); MEAN CORPUSCULAR VOLUME 86.4 FL (78-98); MONOCYTES # (AUTO) 0.6 X10'3 (0-0.9); MONOCYTES % (AUTO) 8.7 % (2-12); NEUTROPHILS # (AUTO) 5.6 X10'3 (1.8-7.7); NEUTROPHILS % (AUTO) 86.6 % (42-75); PLATELET COUNT 142 X10'3 (140-440); RED CELL DISTRIBUTION WIDTH 17.4 % (11.5-14.5); WHITE BLOOD COUNT 6.5 X10'3 (4.5-11.0)
[2021-07-19 06:39] LABS: ALANINE AMINOTRANSFERASE 35 U/L (12-78); ALBUMIN 2.7 G/DL (3.4-5.0); ALBUMIN/GLOBULIN RATIO 0.9 (1.1-1.5); ALKALINE PHOSPHATASE 64 IU/L (46-116); ANION GAP 3 (8-16); ASPARTATE AMINO TRANSFERASE 22 U/L (10-37); BILIRUBIN,TOTAL 0.5 MG/DL (0.1-1.0); BLOOD UREA NITROGEN 15 MG/DL (7-18); BUN/CREATININE RATIO 22.7 (5.4-32.0); CALCIUM 8.7 MG/DL (8.5-10.1); CHLORIDE 100 MMOL/L (99-107); CREATININE 0.66 MG/DL (0.60-1.10); GLUCOSE 117 MG/DL (70-104); MAGNESIUM 2.1 MG/DL (1.5-2.4); POTASSIUM 4.4 MMOL/L (3.5-5.1); SODIUM 130 MMOL/L (135-145); TOTAL CARBON DIOXIDE 26.6 MMOL/L (24-32); TOTAL PROTEIN 5.6 G/DL (6.4-8.2); eGFR > 90 ML/MIN
[2021-07-19] MEDS: pantoprazole 40mg Tablet.DR PO SCH (07:17)
[2021-07-19] MEDS: metoprolol tartrate 25mg tablet PO SCH ×2 (07:45→20:11)
[2021-07-19] MEDS: guaiFENesin ER 600mg tablet PO SCH ×2 (07:45→20:10)
[2021-07-19] MEDS: docusate sodium 100mg/10ml UD cup OGT SCH ×2 (07:46→20:10)
[2021-07-19] MEDS: levoTHYROXINE 88mcg tablet PO SCH (07:46)
[2021-07-19] MEDS: losartan 25mg tablet PO SCH (07:46)
[2021-07-19] MEDS: atorvastatin 10mg tablet PO SCH (07:46)
[2021-07-19] MEDS: tamsulosin 0.4mg capsule PO SCH (07:46)
[2021-07-19] MEDS: lactobacillus rhamnosus 10,000 MMU CELLS/CAPSULE PO SCH ×2 (07:46→20:10)
[2021-07-19] MEDS: amLODIPine 2.5mg tablet PO SCH (07:46)
[2021-07-19] MEDS: sodium chloride 1gm tablet PO SCH ×4 (07:46→20:10)
[2021-07-19] MEDS: methylPREDNISolone sod succ/PF 40mg inj. IV SCH ×2 (07:47→20:10)
[2021-07-19] MEDS: heparin, porcine 5000 units/ml vial SQ SCH ×2 (07:47→20:10)
[2021-07-19] MEDS: K and/or MAG REPLACEMENT MC SCH ×2 (08:00→20:00)
[2021-07-19] MEDS: budesonide 0.5mg/2ml UD nebule IH SCH ×2 (08:14→19:44)
[2021-07-19] MEDS: salt irrigation nasal spray 45 ML SPRAY NS PRN (15:40)
--- NOTE | 2021-07-19 18:35 | NUR ---
Problems reprioritized. Patient report given, questions answered & plan of care reviewed with BEVERLY MIR. Assisted pt to potty chair, lots of gas but no bowel movement, assisted getting pt back to bed
[2021-07-19] MEDS: finasteride 5mg tablet PO SCH (20:10)
[2021-07-20] VITALS (21 sets, daily range): BP systolic 105–141; BP diastolic 45–78
[2021-07-20] MEDS: ipratropium/albuterol 3ml nebule NEB SCH ×6 (03:11→23:46)
[2021-07-20] MEDS: sodium chloride 1gm tablet PO SCH ×4 (07:46→20:25)
[2021-07-20] MEDS: lactobacillus rhamnosus 10,000 MMU CELLS/CAPSULE PO SCH ×2 (07:46→20:26)
[2021-07-20] MEDS: guaiFENesin ER 600mg tablet PO SCH ×2 (07:46→20:25)
[2021-07-20] MEDS: atorvastatin 10mg tablet PO SCH (07:47)
[2021-07-20] MEDS: metoprolol tartrate 25mg tablet PO SCH ×3 (07:47→20:26)
[2021-07-20] MEDS: levoTHYROXINE 88mcg tablet PO SCH (07:47)
[2021-07-20] MEDS: pantoprazole 40mg Tablet.DR PO SCH (07:47)
[2021-07-20] MEDS: tamsulosin 0.4mg capsule PO SCH (07:47)
[2021-07-20] MEDS: losartan 25mg tablet PO SCH (07:48)
[2021-07-20] MEDS: docusate sodium 100mg/10ml UD cup OGT SCH ×2 (07:48→20:25)
[2021-07-20] MEDS: amLODIPine 2.5mg tablet PO SCH (07:48)
[2021-07-20] MEDS: heparin, porcine 5000 units/ml vial SQ SCH ×2 (07:48→20:25)
[2021-07-20] MEDS: methylPREDNISolone sod succ/PF 40mg inj. IV SCH ×2 (07:49→20:25)
[2021-07-20] MEDS: K and/or MAG REPLACEMENT MC SCH ×2 (08:00→19:32)
[2021-07-20] MEDS: budesonide 0.5mg/2ml UD nebule IH SCH ×2 (08:23→20:20)
[2021-07-20 10:27] LABS: BASOPHILS % (AUTO) 0.1 % (0-1); EOSINOPHILS % (AUTO) 0.1 % (0-6); HEMATOCRIT 33.6 % (42.0-52.0); HEMOGLOBIN 11.2 g/dl (14.0-17.9); LYMPHOCYTES # (AUTO) 0.4 X10'3 (1.1-4.8); LYMPHOCYTES % (AUTO) 2.2 % (21-51); MEAN CORPUSCULAR HEMOGLOBIN 28.5 PG (27.0-31.0); MEAN CORPUSCULAR HGB CONC 33.4 g/dL (33.0-36.5); MEAN CORPUSCULAR VOLUME 85.2 FL (78-98); MEAN PLATELET VOLUME 9.4 FL (7.4-10.4); MONOCYTES # (AUTO) 1.1 X10'3 (0-0.9); NEUTROPHILS # (AUTO) 14.6 X10'3 (1.8-7.7); NEUTROPHILS % (AUTO) 90.6 % (42-75); PLATELET COUNT 182 X10'3 (140-440); RED BLOOD COUNT 3.94 X10'6 (4.70-6.10); RED CELL DISTRIBUTION WIDTH 17.1 % (11.5-14.5); WHITE BLOOD COUNT 16.1 X10'3 (4.5-11.0)
[2021-07-20 10:40] LABS: ALANINE AMINOTRANSFERASE 35 U/L (12-78); ALBUMIN 2.3 G/DL (3.4-5.0); ALBUMIN/GLOBULIN RATIO 0.7 (1.1-1.5); ALKALINE PHOSPHATASE 61 IU/L (46-116); ANION GAP 6 (8-16); ASPARTATE AMINO TRANSFERASE 20 U/L (10-37); BILIRUBIN,TOTAL 0.5 MG/DL (0.1-1.0); BLOOD UREA NITROGEN 17 MG/DL (7-18); BUN/CREATININE RATIO 20.7 (5.4-32.0); CALCIUM 8.7 MG/DL (8.5-10.1); CHLORIDE 101 MMOL/L (99-107); CREATININE 0.82 MG/DL (0.60-1.10); GLUCOSE 124 MG/DL (70-104); POTASSIUM 4.2 MMOL/L (3.5-5.1); SODIUM 135 MMOL/L (135-145); TOTAL CARBON DIOXIDE 27.9 MMOL/L (24-32); TOTAL PROTEIN 5.4 G/DL (6.4-8.2); eGFR 90 ML/MIN
--- NOTE | 2021-07-20 12:00 | NUR ---
F/u 07/20: Pt advanced to heart healthy diet from prior full liquids PO ~100% avg meals. Now placed on regular diet per MD given low serum Na 130 yesterday AM receiving QID Na pills, lipid panel WNL, and age. LBM 07/20 receiving routine colace. Will continue to monitor for PO trends and additional protein needs post-op. Recommendations: 1. continue regular diet 2. monitor for PO trends and ONS needs post-op 3. Routine bowel care 4. Weekly scaled weights Addendum: 07/20/21 at [address] Amended: Links added.
--- NOTE | 2021-07-20 19:17 | NUR ---
PATIENT IS TO BE TRANSFERRED TO [facility], REPORT GIVEN TO MUNIRA/ADEOLA
--- NOTE | 2021-07-20 19:31 | NUR ---
metoprolol not given due to multiple low b/o 112/52, 110/50
--- NOTE | 2021-07-20 20:00 | NUR ---
Patient transported to the floor in stable condition
[2021-07-20] MEDS: finasteride 5mg tablet PO SCH (20:26)
[2021-07-21 02:00] VITALS: BP 128/66
[2021-07-21] MEDS: ipratropium/albuterol 3ml nebule NEB SCH ×6 (04:15→23:08)
[2021-07-21 06:00] VITALS: BP 115/72
--- NOTE | 2021-07-21 06:30 | NUR ---
Problems reprioritized. Patient report given, questions answered & plan of care reviewed with ADEOLA Chowdhury.
--- NOTE | 2021-07-21 06:32 | NUR ---
Patient in room PCU 3018. I have received report from ADEOLA QUIROZ, and had the opportunity to ask questions and assume patient care.
[2021-07-21 06:33] LABS: BASOPHILS % (AUTO) 0.2 % (0-1); EOSINOPHILS % (AUTO) 0 % (0-6); HEMATOCRIT 32.1 % (42.0-52.0); HEMOGLOBIN 10.8 g/dl (14.0-17.9); LYMPHOCYTES # (AUTO) 0.5 X10'3 (1.1-4.8); LYMPHOCYTES % (AUTO) 3.9 % (21-51); MEAN CORPUSCULAR HEMOGLOBIN 28.4 PG (27.0-31.0); MEAN CORPUSCULAR HGB CONC 33.6 g/dL (33.0-36.5); MEAN CORPUSCULAR VOLUME 84.5 FL (78-98); MEAN PLATELET VOLUME 9.1 FL (7.4-10.4); MONOCYTES # (AUTO) 0.8 X10'3 (0-0.9); MONOCYTES % (AUTO) 7.2 % (2-12); NEUTROPHILS # (AUTO) 10.5 X10'3 (1.8-7.7); NEUTROPHILS % (AUTO) 88.7 % (42-75); PLATELET COUNT 188 X10'3 (140-440); RED BLOOD COUNT 3.79 X10'6 (4.70-6.10); RED CELL DISTRIBUTION WIDTH 17.5 % (11.5-14.5); WHITE BLOOD COUNT 11.8 X10'3 (4.5-11.0)
[2021-07-21 07:12] LABS: ALANINE AMINOTRANSFERASE 35 U/L (12-78); ALBUMIN 2.3 G/DL (3.4-5.0); ALBUMIN/GLOBULIN RATIO 0.8 (1.1-1.5); ALKALINE PHOSPHATASE 63 IU/L (46-116); ANION GAP 6 (8-16); ASPARTATE AMINO TRANSFERASE 18 U/L (10-37); BILIRUBIN,TOTAL 0.4 MG/DL (0.1-1.0); BLOOD UREA NITROGEN 19 MG/DL (7-18); BUN/CREATININE RATIO 27.9 (5.4-32.0); CALCIUM 8.8 MG/DL (8.5-10.1); CHLORIDE 103 MMOL/L (99-107); CREATININE 0.68 MG/DL (0.60-1.10); GLUCOSE 121 MG/DL (70-104); POTASSIUM 4.4 MMOL/L (3.5-5.1); SODIUM 135 MMOL/L (135-145); TOTAL CARBON DIOXIDE 25.9 MMOL/L (24-32); TOTAL PROTEIN 5.1 G/DL (6.4-8.2); eGFR > 90 ML/MIN
[2021-07-21] MEDS: docusate sodium 100mg/10ml UD cup OGT SCH ×2 (08:00→20:52)
[2021-07-21] MEDS: K and/or MAG REPLACEMENT MC SCH ×2 (08:00→20:00)
[2021-07-21] MEDS: methylPREDNISolone sod succ/PF 40mg inj. IV SCH ×2 (08:21→20:50)
[2021-07-21] MEDS: atorvastatin 10mg tablet PO SCH (08:22)
[2021-07-21] MEDS: heparin, porcine 5000 units/ml vial SQ SCH ×2 (08:22→20:50)
[2021-07-21] MEDS: lactobacillus rhamnosus 10,000 MMU CELLS/CAPSULE PO SCH ×2 (08:23→20:50)
[2021-07-21] MEDS: sodium chloride 1gm tablet PO SCH ×4 (08:23→22:39)
[2021-07-21] MEDS: levoTHYROXINE 88mcg tablet PO SCH (08:23)
[2021-07-21] MEDS: pantoprazole 40mg Tablet.DR PO SCH (08:23)
[2021-07-21] MEDS: amLODIPine 2.5mg tablet PO SCH (08:24)
[2021-07-21] MEDS: guaiFENesin ER 600mg tablet PO SCH ×2 (08:24→20:51)
[2021-07-21] MEDS: tamsulosin 0.4mg capsule PO SCH (08:24)
[2021-07-21] MEDS: losartan 25mg tablet PO SCH (08:24)
[2021-07-21] MEDS: salt irrigation nasal spray 45 ML SPRAY NS PRN ×2 (10:36→17:26)
[2021-07-21 11:00] VITALS: BP 98/65
[2021-07-21] MEDS: budesonide 0.5mg/2ml UD nebule IH SCH ×2 (12:43→19:35)
[2021-07-21 15:00] VITALS: BP 111/58
--- NOTE | 2021-07-21 18:28 | NUR ---
Problems reprioritized. Patient report given, questions answered & plan of care reviewed with ADEOLA SHEFFIELD.
--- NOTE | 2021-07-21 18:29 | NUR ---
Patient in room PCU 3018. I have received report from ADEOLA Chowdhury and had the opportunity to ask questions and assume patient care.
[2021-07-21 19:00] VITALS: BP 124/52
[2021-07-21] MEDS: finasteride 5mg tablet PO SCH (20:51)
[2021-07-21] MEDS: metoprolol tartrate 25mg tablet PO SCH (20:51)
[2021-07-21 23:00] VITALS: BP 118/54
[2021-07-22] VITALS (7 sets, daily range): BP systolic 109–126; BP diastolic 52–71
[2021-07-22] MEDS: salt irrigation nasal spray 45 ML SPRAY NS PRN ×2 (00:39→08:30)
[2021-07-22] MEDS: ipratropium/albuterol 3ml nebule NEB SCH ×5 (03:06→23:17)
--- NOTE | 2021-07-22 06:24 | NUR ---
Problems reprioritized. Patient report given, questions answered & plan of care reviewed with ADEOLA Weems.
--- NOTE | 2021-07-22 06:30 | NUR ---
Patient in room PCU 3018. I have received report from Bibiana MIR and had the opportunity to ask questions and assume patient care.
[2021-07-22 06:51] LABS: BASOPHILS % (AUTO) 0.1 % (0-1); EOSINOPHILS % (AUTO) 0 % (0-6); HEMATOCRIT 32.5 % (42.0-52.0); HEMOGLOBIN 10.8 g/dl (14.0-17.9); LYMPHOCYTES # (AUTO) 0.4 X10'3 (1.1-4.8); LYMPHOCYTES % (AUTO) 2.7 % (21-51); MEAN CORPUSCULAR HEMOGLOBIN 28.5 PG (27.0-31.0); MEAN CORPUSCULAR HGB CONC 33.3 g/dL (33.0-36.5); MEAN CORPUSCULAR VOLUME 85.8 FL (78-98); MEAN PLATELET VOLUME 9.3 FL (7.4-10.4); MONOCYTES # (AUTO) 0.9 X10'3 (0-0.9); MONOCYTES % (AUTO) 5.9 % (2-12); NEUTROPHILS # (AUTO) 13.1 X10'3 (1.8-7.7); NEUTROPHILS % (AUTO) 91.3 % (42-75); PLATELET COUNT 195 X10'3 (140-440); RED BLOOD COUNT 3.79 X10'6 (4.70-6.10); RED CELL DISTRIBUTION WIDTH 17.4 % (11.5-14.5); WHITE BLOOD COUNT 14.4 X10'3 (4.5-11.0)
[2021-07-22] MEDS: budesonide 0.5mg/2ml UD nebule IH SCH ×2 (07:06→19:26)
[2021-07-22 07:21] LABS: ALANINE AMINOTRANSFERASE 36 U/L (12-78); ALBUMIN 2.2 G/DL (3.4-5.0); ALBUMIN/GLOBULIN RATIO 0.7 (1.1-1.5); ALKALINE PHOSPHATASE 63 IU/L (46-116); ANION GAP 7 (8-16); ASPARTATE AMINO TRANSFERASE 18 U/L (10-37); BILIRUBIN,TOTAL 0.3 MG/DL (0.1-1.0); BLOOD UREA NITROGEN 20 MG/DL (7-18); BUN/CREATININE RATIO 29.9 (5.4-32.0); CALCIUM 8.6 MG/DL (8.5-10.1); CHLORIDE 101 MMOL/L (99-107); CREATININE 0.67 MG/DL (0.60-1.10); GLUCOSE 123 MG/DL (70-104); POTASSIUM 4.4 MMOL/L (3.5-5.1); SODIUM 135 MMOL/L (135-145); TOTAL CARBON DIOXIDE 26.7 MMOL/L (24-32); TOTAL PROTEIN 5.3 G/DL (6.4-8.2); eGFR > 90 ML/MIN
[2021-07-22] MEDS: docusate sodium 100mg/10ml UD cup OGT SCH ×2 (08:00→20:00)
[2021-07-22] MEDS: K and/or MAG REPLACEMENT MC SCH ×2 (08:00→20:00)
[2021-07-22] MEDS: atorvastatin 10mg tablet PO SCH (08:30)
[2021-07-22] MEDS: heparin, porcine 5000 units/ml vial SQ SCH ×2 (08:31→21:43)
[2021-07-22] MEDS: pantoprazole 40mg Tablet.DR PO SCH (08:31)
[2021-07-22] MEDS: guaiFENesin ER 600mg tablet PO SCH ×2 (08:32→21:43)
[2021-07-22] MEDS: lactobacillus rhamnosus 10,000 MMU CELLS/CAPSULE PO SCH ×2 (08:32→21:43)
[2021-07-22] MEDS: amLODIPine 2.5mg tablet PO SCH (08:32)
[2021-07-22] MEDS: tamsulosin 0.4mg capsule PO SCH (08:32)
[2021-07-22] MEDS: losartan 25mg tablet PO SCH (08:33)
[2021-07-22] MEDS: sodium chloride 1gm tablet PO SCH ×4 (08:33→21:43)
[2021-07-22] MEDS: levoTHYROXINE 88mcg tablet PO SCH (08:34)
[2021-07-22] MEDS: metoprolol tartrate 25mg tablet PO SCH ×2 (08:34→21:48)
[2021-07-22] MEDS: methylPREDNISolone sod succ/PF 40mg inj. IV SCH ×2 (08:38→21:42)
--- NOTE | 2021-07-22 18:10 | NUR ---
Patient in room PCU 3018. I have received report from ADEOLA Weems and had the opportunity to ask questions and assume patient care.
--- NOTE | 2021-07-22 18:10 | NUR ---
Problems reprioritized. Patient report given, questions answered & plan of care reviewed with Bibiana MIR. Patient stable at transfer of care.
[2021-07-22] MEDS: finasteride 5mg tablet PO SCH (21:43)
[2021-07-23] MEDS: ipratropium/albuterol 3ml nebule NEB SCH ×6 (03:17→23:12)
[2021-07-23 06:00] VITALS: BP 114/58
--- NOTE | 2021-07-23 06:13 | NUR ---
Problems reprioritized. Patient report given, questions answered & plan of care reviewed with ADEOLA Weems.
[2021-07-23 06:36] LABS: BASOPHILS % (AUTO) 0.2 % (0-1); EOSINOPHILS % (AUTO) 0 % (0-6); HEMATOCRIT 32.6 % (42.0-52.0); HEMOGLOBIN 11.1 g/dl (14.0-17.9); LYMPHOCYTES # (AUTO) 0.2 X10'3 (1.1-4.8); MEAN CORPUSCULAR HEMOGLOBIN 28.9 PG (27.0-31.0); MEAN PLATELET VOLUME 9.3 FL (7.4-10.4); MONOCYTES # (AUTO) 0.4 X10'3 (0-0.9); MONOCYTES % (AUTO) 3.3 % (2-12); NEUTROPHILS # (AUTO) 11.9 X10'3 (1.8-7.7); NEUTROPHILS % (AUTO) 94.5 % (42-75); PLATELET COUNT 212 X10'3 (140-440); RED BLOOD COUNT 3.84 X10'6 (4.70-6.10); RED CELL DISTRIBUTION WIDTH 17.3 % (11.5-14.5); WHITE BLOOD COUNT 12.6 X10'3 (4.5-11.0)
--- NOTE | 2021-07-23 06:39 | NUR ---
Patient in room PCU 3018. I have received report from Bibiana MIR and had the opportunity to ask questions and assume patient care.
[2021-07-23 06:43] LABS: ALANINE AMINOTRANSFERASE 32 U/L (12-78); ALBUMIN 2.2 G/DL (3.4-5.0); ALBUMIN/GLOBULIN RATIO 0.7 (1.1-1.5); ALKALINE PHOSPHATASE 64 IU/L (46-116); ANION GAP 5 (8-16); ASPARTATE AMINO TRANSFERASE 21 U/L (10-37); BILIRUBIN,TOTAL 0.4 MG/DL (0.1-1.0); BLOOD UREA NITROGEN 17 MG/DL (7-18); BUN/CREATININE RATIO 23.3 (5.4-32.0); CALCIUM 8.7 MG/DL (8.5-10.1); CHLORIDE 104 MMOL/L (99-107); CREATININE 0.73 MG/DL (0.60-1.10); GLUCOSE 141 MG/DL (70-104); POTASSIUM 4.5 MMOL/L (3.5-5.1); SODIUM 137 MMOL/L (135-145); TOTAL CARBON DIOXIDE 27.9 MMOL/L (24-32); TOTAL PROTEIN 5.3 G/DL (6.4-8.2); eGFR > 90 ML/MIN
[2021-07-23] MEDS: K and/or MAG REPLACEMENT MC SCH ×2 (07:00→20:00)
[2021-07-23] MEDS: budesonide 0.5mg/2ml UD nebule IH SCH ×2 (07:22→19:31)
[2021-07-23] MEDS: methylPREDNISolone sod succ/PF 40mg inj. IV SCH ×2 (07:54→20:53)
[2021-07-23] MEDS: heparin, porcine 5000 units/ml vial SQ SCH ×2 (07:54→20:51)
[2021-07-23] MEDS: docusate sodium 100mg/10ml UD cup OGT SCH ×3 (07:54→20:00)
[2021-07-23] MEDS: metoprolol tartrate 25mg tablet PO SCH ×2 (07:55→20:53)
[2021-07-23] MEDS: lactobacillus rhamnosus 10,000 MMU CELLS/CAPSULE PO SCH ×2 (07:55→20:52)
[2021-07-23] MEDS: tamsulosin 0.4mg capsule PO SCH (07:56)
[2021-07-23] MEDS: atorvastatin 10mg tablet PO SCH (07:56)
[2021-07-23] MEDS: levoTHYROXINE 88mcg tablet PO SCH (07:56)
[2021-07-23] MEDS: losartan 25mg tablet PO SCH (07:57)
[2021-07-23] MEDS: guaiFENesin ER 600mg tablet PO SCH ×2 (07:57→20:51)
[2021-07-23] MEDS: sodium chloride 1gm tablet PO SCH ×4 (07:58→20:51)
[2021-07-23] MEDS: pantoprazole 40mg Tablet.DR PO SCH (07:58)
[2021-07-23] MEDS: amLODIPine 2.5mg tablet PO SCH (07:58)
[2021-07-23 11:00] VITALS: BP 120/55
[2021-07-23 15:00] VITALS: BP 126/45
--- NOTE | 2021-07-23 18:19 | NUR ---
Problems reprioritized. Patient report given, questions answered & plan of care reviewed with Bibiana MIR. Patient stable at transfer of care.
[2021-07-23 19:00] VITALS: BP 113/57
[2021-07-23] MEDS: finasteride 5mg tablet PO SCH (20:58)
[2021-07-23 23:00] VITALS: BP 120/56
[2021-07-24 02:00] VITALS: BP 118/54
[2021-07-24] MEDS: ipratropium/albuterol 3ml nebule NEB SCH ×6 (03:28→23:34)
[2021-07-24 06:00] VITALS: BP 122/57
[2021-07-24 06:22] LABS: BASOPHILS % (AUTO) 0.1 % (0-1); EOSINOPHILS % (AUTO) 0 % (0-6); HEMATOCRIT 30.3 % (42.0-52.0); HEMOGLOBIN 10.1 g/dl (14.0-17.9); LYMPHOCYTES # (AUTO) 0.2 X10'3 (1.1-4.8); LYMPHOCYTES % (AUTO) 1.4 % (21-51); MEAN CORPUSCULAR HEMOGLOBIN 28.4 PG (27.0-31.0); MEAN CORPUSCULAR HGB CONC 33.3 g/dL (33.0-36.5); MEAN CORPUSCULAR VOLUME 85.4 FL (78-98); MEAN PLATELET VOLUME 9.4 FL (7.4-10.4); MONOCYTES # (AUTO) 0.6 X10'3 (0-0.9); MONOCYTES % (AUTO) 4.4 % (2-12); NEUTROPHILS # (AUTO) 13.1 X10'3 (1.8-7.7); NEUTROPHILS % (AUTO) 94.1 % (42-75); PLATELET COUNT 217 X10'3 (140-440); RED BLOOD COUNT 3.54 X10'6 (4.70-6.10); RED CELL DISTRIBUTION WIDTH 17.9 % (11.5-14.5); WHITE BLOOD COUNT 13.9 X10'3 (4.5-11.0)
--- NOTE | 2021-07-24 06:24 | NUR ---
Patient in room PCU 3018. I have received report from Bibiana MIR and had the opportunity to ask questions and assume patient care.
--- NOTE | 2021-07-24 06:30 | NUR ---
Problems reprioritized. Patient report given, questions answered & plan of care reviewed with ADEOLA Weems.
[2021-07-24] MEDS: budesonide 0.5mg/2ml UD nebule IH SCH ×2 (07:12→19:47)
[2021-07-24 07:43] LABS: ALANINE AMINOTRANSFERASE 29 U/L (12-78); ALBUMIN/GLOBULIN RATIO 0.6 (1.1-1.5); ALKALINE PHOSPHATASE 58 IU/L (46-116); ANION GAP 8 (8-16); ASPARTATE AMINO TRANSFERASE 16 U/L (10-37); BILIRUBIN,TOTAL 0.3 MG/DL (0.1-1.0); BLOOD UREA NITROGEN 22 MG/DL (7-18); BUN/CREATININE RATIO 31.9 (5.4-32.0); CALCIUM 8.6 MG/DL (8.5-10.1); CHLORIDE 104 MMOL/L (99-107); CREATININE 0.69 MG/DL (0.60-1.10); GLUCOSE 139 MG/DL (70-104); POTASSIUM 4.2 MMOL/L (3.5-5.1); SODIUM 136 MMOL/L (135-145); TOTAL CARBON DIOXIDE 24.1 MMOL/L (24-32); TOTAL PROTEIN 5.1 G/DL (6.4-8.2); eGFR > 90 ML/MIN
[2021-07-24] MEDS: atorvastatin 10mg tablet PO SCH (07:53)
[2021-07-24] MEDS: sodium chloride 1gm tablet PO SCH ×4 (07:53→21:31)
[2021-07-24] MEDS: lactobacillus rhamnosus 10,000 MMU CELLS/CAPSULE PO SCH ×2 (07:53→21:30)
[2021-07-24] MEDS: losartan 25mg tablet PO SCH (07:53)
[2021-07-24] MEDS: pantoprazole 40mg Tablet.DR PO SCH (07:53)
[2021-07-24] MEDS: guaiFENesin ER 600mg tablet PO SCH ×2 (07:53→21:30)
[2021-07-24] MEDS: amLODIPine 2.5mg tablet PO SCH (07:54)
[2021-07-24] MEDS: methylPREDNISolone sod succ/PF 40mg inj. IV SCH ×2 (07:54→21:30)
[2021-07-24] MEDS: levoTHYROXINE 88mcg tablet PO SCH (07:54)
[2021-07-24] MEDS: docusate sodium 100mg/10ml UD cup OGT SCH ×2 (07:54→20:00)
[2021-07-24] MEDS: K and/or MAG REPLACEMENT MC SCH ×2 (07:54→20:00)
[2021-07-24] MEDS: heparin, porcine 5000 units/ml vial SQ SCH ×2 (07:54→21:30)
[2021-07-24] MEDS: tamsulosin 0.4mg capsule PO SCH (07:54)
[2021-07-24] MEDS: metoprolol tartrate 25mg tablet PO SCH ×2 (07:55→21:31)
[2021-07-24 11:00] VITALS: BP 119/50
[2021-07-24 15:00] VITALS: BP 111/55
--- NOTE | 2021-07-24 18:35 | NUR ---
Problems reprioritized. Patient report given, questions answered & plan of care reviewed with Bibiana MIR.
--- NOTE | 2021-07-24 18:40 | NUR ---
Patient in room PCU 3018. I have received report from ADEOLA Weems and had the opportunity to ask questions and assume patient care.
--- NOTE | 2021-07-24 18:45 | NUR ---
Patient had the CT suction removed earlier, O2 desats noticed by previous nurse as low as 74%, now it's on the 80%-85%, RT was paged and O2 increase to 15L. Will continue to monitor.
[2021-07-24 19:00] VITALS: BP 121/58
--- NOTE | 2021-07-24 19:00 | NUR ---
RT in room with patient, High Flow 02 to 15L in progress, 02 sats 87%-90%. RT may use non-rebreather on patient, continue to monitor.
--- NOTE | 2021-07-24 19:55 | NUR ---
Dr Hernández made aware, that CT suction was d/c around noon, waterseals only at this time and he's desats. Order CXR now.
--- NOTE | 2021-07-24 20:31 | NUR ---
CXR completed, awaiting for result.
--- NOTE | 2021-07-24 21:05 | NUR ---
Dr Hernández called stating he's going to review the CXR and the patient result and will notified us.
[2021-07-24] MEDS: finasteride 5mg tablet PO SCH (21:33)
[2021-07-24 23:00] VITALS: BP 130/55
[2021-07-25 02:00] VITALS: BP 125/63
[2021-07-25] MEDS: ipratropium/albuterol 3ml nebule NEB SCH ×6 (03:54→22:51)
--- NOTE | 2021-07-25 04:00 | NUR ---
Patient in bed sleeping quietly, no acute distress noted. Non-rebreather was removed by RT, Now on High flow n/c at 12L saturation between 96%-98%. Will continue to monitor.
[2021-07-25 06:17] LABS: BASOPHILS % (AUTO) 0 % (0-1); EOSINOPHILS % (AUTO) 0 % (0-6); HEMATOCRIT 34.7 % (42.0-52.0); HEMOGLOBIN 11.4 g/dl (14.0-17.9); LYMPHOCYTES # (AUTO) 0.2 X10'3 (1.1-4.8); LYMPHOCYTES % (AUTO) 1.1 % (21-51); MEAN CORPUSCULAR HEMOGLOBIN 28.2 PG (27.0-31.0); MEAN CORPUSCULAR HGB CONC 32.7 g/dL (33.0-36.5); MEAN CORPUSCULAR VOLUME 86.3 FL (78-98); MEAN PLATELET VOLUME 9.3 FL (7.4-10.4); MONOCYTES # (AUTO) 0.6 X10'3 (0-0.9); MONOCYTES % (AUTO) 3.6 % (2-12); NEUTROPHILS # (AUTO) 16.8 X10'3 (1.8-7.7); NEUTROPHILS % (AUTO) 95.3 % (42-75); PLATELET COUNT 267 X10'3 (140-440); RED BLOOD COUNT 4.02 X10'6 (4.70-6.10); RED CELL DISTRIBUTION WIDTH 17.9 % (11.5-14.5); WHITE BLOOD COUNT 17.6 X10'3 (4.5-11.0)
--- NOTE | 2021-07-25 06:50 | NUR ---
Patient in room PCU 3018. I have received report from ADEOLA Mccarty and had the opportunity to ask questions and assume patient care. Patient asleep in bed and in no acute distress.
--- NOTE | 2021-07-25 06:53 | NUR ---
Problems reprioritized. Patient report given, questions answered & plan of care reviewed with ADEOLA Koch.
[2021-07-25 07:00] VITALS: BP 125/65
[2021-07-25 07:15] LABS: ALANINE AMINOTRANSFERASE 29 U/L (12-78); ALBUMIN 1.9 G/DL (3.4-5.0); ALBUMIN/GLOBULIN RATIO 0.5 (1.1-1.5); ALKALINE PHOSPHATASE 63 IU/L (46-116); ANION GAP 7 (8-16); ASPARTATE AMINO TRANSFERASE 14 U/L (10-37); BILIRUBIN,TOTAL 0.3 MG/DL (0.1-1.0); BLOOD UREA NITROGEN 20 MG/DL (7-18); BUN/CREATININE RATIO 25.3 (5.4-32.0); CALCIUM 8.6 MG/DL (8.5-10.1); CHLORIDE 103 MMOL/L (99-107); CREATININE 0.79 MG/DL (0.60-1.10); GLUCOSE 150 MG/DL (70-104); POTASSIUM 4.4 MMOL/L (3.5-5.1); SODIUM 137 MMOL/L (135-145); TOTAL CARBON DIOXIDE 26.9 MMOL/L (24-32); TOTAL PROTEIN 5.7 G/DL (6.4-8.2); eGFR > 90 ML/MIN
[2021-07-25] MEDS: budesonide 0.5mg/2ml UD nebule IH SCH ×2 (07:40→19:08)
[2021-07-25] MEDS: docusate sodium 100mg/10ml UD cup OGT SCH ×2 (08:00→20:00)
[2021-07-25] MEDS: K and/or MAG REPLACEMENT MC SCH ×2 (08:00→20:00)
[2021-07-25] MEDS: levoTHYROXINE 88mcg tablet PO SCH (08:26)
[2021-07-25] MEDS: lactobacillus rhamnosus 10,000 MMU CELLS/CAPSULE PO SCH ×2 (08:26→20:51)
[2021-07-25] MEDS: atorvastatin 10mg tablet PO SCH (08:26)
[2021-07-25] MEDS: sodium chloride 1gm tablet PO SCH ×4 (08:27→20:54)
[2021-07-25] MEDS: losartan 25mg tablet PO SCH (08:28)
[2021-07-25] MEDS: amLODIPine 2.5mg tablet PO SCH (08:28)
[2021-07-25] MEDS: guaiFENesin ER 600mg tablet PO SCH ×2 (08:29→20:53)
[2021-07-25] MEDS: tamsulosin 0.4mg capsule PO SCH (08:29)
[2021-07-25] MEDS: pantoprazole 40mg Tablet.DR PO SCH (08:29)
[2021-07-25] MEDS: metoprolol tartrate 25mg tablet PO SCH ×2 (08:29→20:53)
[2021-07-25] MEDS: heparin, porcine 5000 units/ml vial SQ SCH ×2 (08:31→20:52)
[2021-07-25] MEDS: methylPREDNISolone sod succ/PF 40mg inj. IV SCH ×2 (08:31→20:51)
--- NOTE | 2021-07-25 09:33 | NUR ---
F/u 07/25: Pt continues on Regular diet w/ adequate intake, mostly 100% of meals meeting needs. Pt receiving salt tabs QID. LBM 07/22 receiving routine colace. Will continue to monitor for PO trends and additional protein needs post-op. Recommendations: 1. continue regular diet 2. monitor for PO trends and ONS needs post-op 3. Routine bowel care 4. Weekly scaled weights Addendum: 07/25/21 at 0933 [address] Jamir Nuñez RD Amended: Links added.
[2021-07-25 11:00] VITALS: BP 113/50
--- NOTE | 2021-07-25 12:02 | NUR ---
Orders for melatonin tablet put in per Dr. Lu.
--- NOTE | 2021-07-25 15:00 | NUR ---
Patient in room PCU 3018. I have received report from Flori and had the opportunity to ask questions and assume patient care. Patient is resting, no sign of distress. VSS
[2021-07-25 15:18] VITALS: BP 103/47
[2021-07-25 18:00] VITALS: BP 107/62
--- NOTE | 2021-07-25 18:02 | NUR ---
Student documentation: I have reviewed and agree with all interventions, assessments performed and documented by Earnestine student nurse.
--- NOTE | 2021-07-25 18:02 | NUR ---
Student Medication Administration: For this medication-pass time frame, all medication were reviewed, dispensed, administered and documented per hospital policy by owne Colby nurse.
--- NOTE | 2021-07-25 18:08 | NUR ---
Problems reprioritized. Patient report given, questions answered & plan of care reviewed with ADEOLA Mccatry. Patient stable at transfer of care.
--- NOTE | 2021-07-25 18:10 | NUR ---
Patient in room PCU 3018. I have received report from ADEOLA Ruby and had the opportunity to ask questions and assume patient care.
[2021-07-25] MEDS: finasteride 5mg tablet PO SCH (20:51)
[2021-07-25] MEDS: Melatonin 3mg tablet PO SCH (20:52)
[2021-07-25 22:00] VITALS: BP 105/58
[2021-07-26 02:00] VITALS: BP 104/54
[2021-07-26] MEDS: ipratropium/albuterol 3ml nebule NEB SCH ×6 (03:18→23:17)
[2021-07-26 06:00] VITALS: BP 103/67
--- NOTE | 2021-07-26 06:20 | NUR ---
Problems reprioritized. Patient report given, questions answered & plan of care reviewed with ADEOLA Whipple.
--- NOTE | 2021-07-26 06:27 | NUR ---
Patient in room PCU 3018. I have received report from Bibiana MIR and had the opportunity to ask questions and assume patient care.
[2021-07-26] MEDS: budesonide 0.5mg/2ml UD nebule IH SCH ×2 (06:53→18:41)
[2021-07-26] MEDS: losartan 25mg tablet PO SCH (08:00)
[2021-07-26] MEDS: K and/or MAG REPLACEMENT MC SCH ×2 (08:00→20:00)
[2021-07-26 08:24] LABS: BASOPHILS % (AUTO) 0.1 % (0-1); EOSINOPHILS % (AUTO) 0 % (0-6); HEMATOCRIT 30.5 % (42.0-52.0); HEMOGLOBIN 10.2 g/dl (14.0-17.9); LYMPHOCYTES # (AUTO) 0.2 X10'3 (1.1-4.8); LYMPHOCYTES % (AUTO) 2.7 % (21-51); MEAN CORPUSCULAR HEMOGLOBIN 28.9 PG (27.0-31.0); MEAN CORPUSCULAR HGB CONC 33.5 g/dL (33.0-36.5); MEAN CORPUSCULAR VOLUME 86.4 FL (78-98); MEAN PLATELET VOLUME 9.3 FL (7.4-10.4); MONOCYTES # (AUTO) 0.4 X10'3 (0-0.9); MONOCYTES % (AUTO) 4.2 % (2-12); NEUTROPHILS # (AUTO) 8.6 X10'3 (1.8-7.7); PLATELET COUNT 239 X10'3 (140-440); RED BLOOD COUNT 3.53 X10'6 (4.70-6.10); RED CELL DISTRIBUTION WIDTH 18.2 % (11.5-14.5); WHITE BLOOD COUNT 9.2 X10'3 (4.5-11.0)
[2021-07-26] MEDS: docusate sodium 100mg/10ml UD cup OGT SCH ×2 (09:00→20:00)
[2021-07-26] MEDS: heparin, porcine 5000 units/ml vial SQ SCH ×2 (09:00→21:17)
[2021-07-26] MEDS: tamsulosin 0.4mg capsule PO SCH (09:00)
[2021-07-26] MEDS: levoTHYROXINE 88mcg tablet PO SCH (09:00)
[2021-07-26] MEDS: methylPREDNISolone sod succ/PF 40mg inj. IV SCH ×2 (09:00→21:16)
[2021-07-26] MEDS: atorvastatin 10mg tablet PO SCH (09:01)
[2021-07-26] MEDS: lactobacillus rhamnosus 10,000 MMU CELLS/CAPSULE PO SCH ×2 (09:01→21:16)
[2021-07-26] MEDS: guaiFENesin ER 600mg tablet PO SCH ×2 (09:01→21:16)
[2021-07-26] MEDS: pantoprazole 40mg Tablet.DR PO SCH (09:01)
[2021-07-26] MEDS: metoprolol tartrate 25mg tablet PO SCH ×2 (09:01→20:00)
[2021-07-26] MEDS: sodium chloride 1gm tablet PO SCH ×4 (09:02→21:16)
[2021-07-26] MEDS: amLODIPine 2.5mg tablet PO SCH (09:03)
[2021-07-26 09:17] LABS: ALANINE AMINOTRANSFERASE 27 U/L (12-78); ALBUMIN 1.7 G/DL (3.4-5.0); ALBUMIN/GLOBULIN RATIO 0.4 (1.1-1.5); ALKALINE PHOSPHATASE 59 IU/L (46-116); ANION GAP 8 (8-16); ASPARTATE AMINO TRANSFERASE 15 U/L (10-37); BILIRUBIN,TOTAL 0.2 MG/DL (0.1-1.0); BLOOD UREA NITROGEN 24 MG/DL (7-18); BUN/CREATININE RATIO 35.3 (5.4-32.0); CALCIUM 8.8 MG/DL (8.5-10.1); CHLORIDE 105 MMOL/L (99-107); CREATININE 0.68 MG/DL (0.60-1.10); GLUCOSE 157 MG/DL (70-104); POTASSIUM 4.6 MMOL/L (3.5-5.1); SODIUM 140 MMOL/L (135-145); TOTAL CARBON DIOXIDE 26.9 MMOL/L (24-32); TOTAL PROTEIN 5.6 G/DL (6.4-8.2); eGFR > 90 ML/MIN
[2021-07-26 11:00] VITALS: BP 116/51
[2021-07-26 15:00] VITALS: BP 94/58
--- NOTE | 2021-07-26 18:42 | NUR ---
Problems reprioritized. Patient report given, questions answered & plan of care reviewed with Bibiana MIR.
--- NOTE | 2021-07-26 18:43 | NUR ---
Patient in room PCU 3018. I have received report from ADEOLA Whipple and had the opportunity to ask questions and assume patient care.
[2021-07-26 19:00] VITALS: BP 113/57
[2021-07-26] MEDS: Melatonin 3mg tablet PO SCH (21:16)
[2021-07-26] MEDS: finasteride 5mg tablet PO SCH (21:17)
[2021-07-26 23:00] VITALS: BP 109/58
[2021-07-27 03:00] VITALS: BP 102/60
[2021-07-27] MEDS: ipratropium/albuterol 3ml nebule NEB SCH ×6 (03:11→23:22)
[2021-07-27 06:00] VITALS: BP 125/66
--- NOTE | 2021-07-27 06:00 | NUR ---
Patient in room PCU 3018. I have received report from ADEOLA Mccarty and had the opportunity to ask questions and assume patient care.
--- NOTE | 2021-07-27 06:30 | NUR ---
Problems reprioritized. Patient report given, questions answered & plan of care reviewed with ADEOLA Wheatley.
[2021-07-27 07:43] LABS: BASOPHILS % (AUTO) 0.1 % (0-1); EOSINOPHILS % (AUTO) 0 % (0-6); HEMATOCRIT 32.6 % (42.0-52.0); HEMOGLOBIN 10.7 g/dl (14.0-17.9); LYMPHOCYTES # (AUTO) 0.2 X10'3 (1.1-4.8); LYMPHOCYTES % (AUTO) 1.5 % (21-51); MEAN CORPUSCULAR HEMOGLOBIN 28.6 PG (27.0-31.0); MEAN CORPUSCULAR HGB CONC 32.8 g/dL (33.0-36.5); MEAN CORPUSCULAR VOLUME 87.4 FL (78-98); MEAN PLATELET VOLUME 9.4 FL (7.4-10.4); MONOCYTES # (AUTO) 0.4 X10'3 (0-0.9); MONOCYTES % (AUTO) 4.3 % (2-12); NEUTROPHILS # (AUTO) 9.6 X10'3 (1.8-7.7); NEUTROPHILS % (AUTO) 94.1 % (42-75); PLATELET COUNT 284 X10'3 (140-440); RED BLOOD COUNT 3.73 X10'6 (4.70-6.10); RED CELL DISTRIBUTION WIDTH 18.1 % (11.5-14.5); WHITE BLOOD COUNT 10.2 X10'3 (4.5-11.0)
[2021-07-27] MEDS: heparin, porcine 5000 units/ml vial SQ SCH ×2 (07:46→21:14)
[2021-07-27] MEDS: methylPREDNISolone sod succ/PF 40mg inj. IV SCH ×2 (07:46→21:14)
[2021-07-27] MEDS: guaiFENesin ER 600mg tablet PO SCH ×2 (07:47→21:15)
[2021-07-27] MEDS: losartan 25mg tablet PO SCH (07:47)
[2021-07-27] MEDS: metoprolol tartrate 25mg tablet PO SCH ×2 (07:47→21:18)
[2021-07-27] MEDS: sodium chloride 1gm tablet PO SCH ×4 (07:47→21:15)
[2021-07-27] MEDS: tamsulosin 0.4mg capsule PO SCH (07:47)
[2021-07-27] MEDS: atorvastatin 10mg tablet PO SCH (07:48)
[2021-07-27] MEDS: levoTHYROXINE 88mcg tablet PO SCH (07:48)
[2021-07-27] MEDS: amLODIPine 2.5mg tablet PO SCH (07:48)
[2021-07-27] MEDS: pantoprazole 40mg Tablet.DR PO SCH (07:48)
[2021-07-27] MEDS: morphine 2 MG/ML inj. syringe IV PRN ×3 (07:48→17:40)
[2021-07-27] MEDS: docusate sodium 100mg/10ml UD cup OGT SCH ×2 (07:48→19:50)
[2021-07-27] MEDS: lactobacillus rhamnosus 10,000 MMU CELLS/CAPSULE PO SCH ×2 (07:48→21:14)
[2021-07-27 07:53] LABS: ALANINE AMINOTRANSFERASE 35 U/L (12-78); ALBUMIN 1.8 G/DL (3.4-5.0); ALBUMIN/GLOBULIN RATIO 0.5 (1.1-1.5); ALKALINE PHOSPHATASE 49 IU/L (46-116); ANION GAP 8 (8-16); ASPARTATE AMINO TRANSFERASE 22 U/L (10-37); BILIRUBIN,TOTAL 0.2 MG/DL (0.1-1.0); BLOOD UREA NITROGEN 26 MG/DL (7-18); BUN/CREATININE RATIO 40.6 (5.4-32.0); CALCIUM 8.8 MG/DL (8.5-10.1); CHLORIDE 106 MMOL/L (99-107); CREATININE 0.64 MG/DL (0.60-1.10); GLUCOSE 154 MG/DL (70-104); POTASSIUM 4.4 MMOL/L (3.5-5.1); SODIUM 140 MMOL/L (135-145); TOTAL CARBON DIOXIDE 26.5 MMOL/L (24-32); TOTAL PROTEIN 5.8 G/DL (6.4-8.2); eGFR > 90 ML/MIN
[2021-07-27] MEDS: K and/or MAG REPLACEMENT MC SCH ×2 (08:00→19:49)
[2021-07-27] MEDS: budesonide 0.5mg/2ml UD nebule IH SCH ×2 (08:07→20:05)
[2021-07-27] MEDS: HYDROcodone/acetaminophen 5mg/325mg tablet PO PRN ×3 (10:10→21:15)
[2021-07-27 11:00] VITALS: BP 96/60
--- NOTE | 2021-07-27 14:23 | NUR ---
Pt is C/O of burning upon urination at the external urethral opening. F/C in place. Decreased urine output and crepitus felt around lower abd and bladder area. These areas are NOT painful upon palpation. Will D/C F/C and place CC. Will continue to monitor and bladder scan as needed.
[2021-07-27 15:00] VITALS: BP 154/77
--- NOTE | 2021-07-27 15:00 | NUR ---
Bladder scan shows 179ml.
--- NOTE | 2021-07-27 17:00 | NUR ---
CC cath in place. Pt has ice pack on which relieves some of the pain. Minimal output, hematuria. Will continue to monitor with pt symptoms and bladder scan.
[2021-07-27 18:00] VITALS: BP 126/61
--- NOTE | 2021-07-27 18:39 | NUR ---
Problems reprioritized. Patient report given, questions answered & plan of care reviewed with ADEOLA Santos.
--- NOTE | 2021-07-27 18:44 | NUR ---
Patient in room PCU 3018. I have received report from Corry MIR and had the opportunity to ask questions and assume patient care.
[2021-07-27] MEDS: finasteride 5mg tablet PO SCH (21:15)
[2021-07-27] MEDS: Melatonin 3mg tablet PO SCH (21:15)
--- NOTE | 2021-07-27 21:39 | NUR ---
Pt had quiros dc'd earlier today. Pts bladder appears to be distended. Bladder scan shows greater than 450mls in bladder. Pt does not feel like he has to pee. Will place quiros for retention per protocol.
[2021-07-27 22:00] VITALS: BP 122/55
[2021-07-28 02:00] VITALS: BP 129/49
[2021-07-28] MEDS: ipratropium/albuterol 3ml nebule NEB SCH ×5 (03:43→20:52)
[2021-07-28 06:00] VITALS: BP 113/51
--- NOTE | 2021-07-28 06:19 | NUR ---
Problems reprioritized. Patient report given, questions answered & plan of care reviewed with Corry MIR.
[2021-07-28 07:59] LABS: BASOPHILS % (AUTO) 0.2 % (0-1); EOSINOPHILS % (AUTO) 0 % (0-6); HEMATOCRIT 33.5 % (42.0-52.0); HEMOGLOBIN 10.9 g/dl (14.0-17.9); LYMPHOCYTES # (AUTO) 0.3 X10'3 (1.1-4.8); LYMPHOCYTES % (AUTO) 1.4 % (21-51); MEAN CORPUSCULAR HEMOGLOBIN 28.2 PG (27.0-31.0); MEAN CORPUSCULAR HGB CONC 32.6 g/dL (33.0-36.5); MEAN CORPUSCULAR VOLUME 86.6 FL (78-98); MEAN PLATELET VOLUME 8.9 FL (7.4-10.4); MONOCYTES # (AUTO) 0.8 X10'3 (0-0.9); MONOCYTES % (AUTO) 4.1 % (2-12); NEUTROPHILS # (AUTO) 18.7 X10'3 (1.8-7.7); NEUTROPHILS % (AUTO) 94.3 % (42-75); PLATELET COUNT 345 X10'3 (140-440); RED BLOOD COUNT 3.87 X10'6 (4.70-6.10); RED CELL DISTRIBUTION WIDTH 18.5 % (11.5-14.5); WHITE BLOOD COUNT 19.8 X10'3 (4.5-11.0)
[2021-07-28] MEDS: docusate sodium 100mg/10ml UD cup OGT SCH ×2 (08:00→20:00)
[2021-07-28] MEDS: K and/or MAG REPLACEMENT MC SCH ×2 (08:00→20:00)
[2021-07-28] MEDS: budesonide 0.5mg/2ml UD nebule IH SCH ×2 (08:27→20:52)
[2021-07-28 08:35] LABS: ALANINE AMINOTRANSFERASE 31 U/L (12-78); ALBUMIN 1.9 G/DL (3.4-5.0); ALBUMIN/GLOBULIN RATIO 0.5 (1.1-1.5); ALKALINE PHOSPHATASE 51 IU/L (46-116); ANION GAP 7 (8-16); ASPARTATE AMINO TRANSFERASE 13 U/L (10-37); BILIRUBIN,TOTAL 0.3 MG/DL (0.1-1.0); BLOOD UREA NITROGEN 29 MG/DL (7-18); BUN/CREATININE RATIO 39.7 (5.4-32.0); CALCIUM 9.1 MG/DL (8.5-10.1); CHLORIDE 105 MMOL/L (99-107); CREATININE 0.73 MG/DL (0.60-1.10); GLUCOSE 131 MG/DL (70-104); POTASSIUM 4.7 MMOL/L (3.5-5.1); SODIUM 141 MMOL/L (135-145); TOTAL CARBON DIOXIDE 28.6 MMOL/L (24-32); TOTAL PROTEIN 5.8 G/DL (6.4-8.2); eGFR > 90 ML/MIN
[2021-07-28] MEDS: lactobacillus rhamnosus 10,000 MMU CELLS/CAPSULE PO SCH ×2 (09:17→22:08)
[2021-07-28] MEDS: pantoprazole 40mg Tablet.DR PO SCH (09:17)
[2021-07-28] MEDS: tamsulosin 0.4mg capsule PO SCH ×2 (09:18→22:06)
[2021-07-28] MEDS: atorvastatin 10mg tablet PO SCH (09:18)
[2021-07-28] MEDS: losartan 25mg tablet PO SCH (09:19)
[2021-07-28] MEDS: amLODIPine 2.5mg tablet PO SCH (09:19)
[2021-07-28] MEDS: guaiFENesin ER 600mg tablet PO SCH ×2 (09:20→22:06)
[2021-07-28] MEDS: sodium chloride 1gm tablet PO SCH ×4 (09:20→21:00)
[2021-07-28] MEDS: metoprolol tartrate 25mg tablet PO SCH ×2 (09:20→20:00)
[2021-07-28] MEDS: levoTHYROXINE 88mcg tablet PO SCH (09:20)
[2021-07-28] MEDS: heparin, porcine 5000 units/ml vial SQ SCH ×2 (09:21→22:02)
[2021-07-28] MEDS: methylPREDNISolone sod succ/PF 40mg inj. IV SCH ×2 (09:22→22:02)
[2021-07-28 11:00] VITALS: BP 109/59
[2021-07-28 15:00] VITALS: BP 107/58
[2021-07-28 18:00] VITALS: BP 102/53
--- NOTE | 2021-07-28 18:17 | NUR ---
Problems reprioritized. Patient report given, questions answered & plan of care reviewed with ADEOLA Brower.
[2021-07-28] MEDS: Melatonin 3mg tablet PO SCH (21:00)
[2021-07-28 22:00] VITALS: BP 99/47
[2021-07-28] MEDS: finasteride 5mg tablet PO SCH (22:03)
[2021-07-29] MEDS: ipratropium/albuterol 3ml nebule NEB SCH ×7 (00:01→23:22)
[2021-07-29 02:00] VITALS: BP 104/50
[2021-07-29 06:00] VITALS: BP 116/61
--- NOTE | 2021-07-29 06:09 | NUR ---
Patient in room PCU 3018. I have received report from ADEOLA Brower and had the opportunity to ask questions and assume patient care.
[2021-07-29] MEDS: methylPREDNISolone sod succ/PF 40mg inj. IV SCH ×2 (07:16→20:03)
[2021-07-29] MEDS: amLODIPine 2.5mg tablet PO SCH (07:16)
[2021-07-29] MEDS: pantoprazole 40mg Tablet.DR PO SCH (07:16)
[2021-07-29] MEDS: levoTHYROXINE 88mcg tablet PO SCH (07:17)
[2021-07-29] MEDS: lactobacillus rhamnosus 10,000 MMU CELLS/CAPSULE PO SCH ×2 (07:17→20:03)
[2021-07-29] MEDS: tamsulosin 0.4mg capsule PO SCH ×2 (07:17→20:03)
[2021-07-29] MEDS: metoprolol tartrate 25mg tablet PO SCH ×2 (07:17→22:02)
[2021-07-29] MEDS: guaiFENesin ER 600mg tablet PO SCH ×2 (07:17→20:03)
[2021-07-29] MEDS: losartan 25mg tablet PO SCH (07:17)
[2021-07-29] MEDS: atorvastatin 10mg tablet PO SCH (07:17)
[2021-07-29] MEDS: sodium chloride 1gm tablet PO SCH ×4 (07:17→21:56)
[2021-07-29] MEDS: docusate sodium 100mg/10ml UD cup OGT SCH ×2 (07:18→20:03)
[2021-07-29] MEDS: heparin, porcine 5000 units/ml vial SQ SCH ×2 (07:18→20:06)
[2021-07-29] MEDS: budesonide 0.5mg/2ml UD nebule IH SCH ×2 (07:37→20:16)
[2021-07-29] MEDS: K and/or MAG REPLACEMENT MC SCH ×2 (08:00→20:00)
[2021-07-29 08:11] LABS: HEMOGLOBIN 10.4 g/dl (14.0-17.9); RED CELL DISTRIBUTION WIDTH 17.8 % (11.5-14.5)
[2021-07-29 08:14] LABS: HEMATOCRIT 31.5 % (42.0-52.0); MEAN CORPUSCULAR HEMOGLOBIN 28.2 PG (27.0-31.0); MEAN CORPUSCULAR VOLUME 85.4 FL (78-98); MEAN PLATELET VOLUME 8.8 FL (7.4-10.4); PLATELET COUNT 274 X10'3 (140-440); RED BLOOD COUNT 3.68 X10'6 (4.70-6.10)
[2021-07-29 08:19] LABS: WHITE BLOOD COUNT 25.3 X10'3 (4.5-11.0)
--- NOTE | 2021-07-29 08:22 | NUR ---
Paged Dr Silva PAGER ID: [phone] MESSAGE: Room 3018A. Oleksandr Lambert. Critical WBC 25.3. Thanks, Corry [phone]
[2021-07-29 08:55] LABS: ALANINE AMINOTRANSFERASE 27 U/L (12-78); ALBUMIN 1.6 G/DL (3.4-5.0); ALBUMIN/GLOBULIN RATIO 0.4 (1.1-1.5); ALKALINE PHOSPHATASE 48 IU/L (46-116); ANION GAP 9 (8-16); ASPARTATE AMINO TRANSFERASE 25 U/L (10-37); BILIRUBIN,TOTAL 0.2 MG/DL (0.1-1.0); BLOOD UREA NITROGEN 25 MG/DL (7-18); BUN/CREATININE RATIO 39.7 (5.4-32.0); CALCIUM 8.5 MG/DL (8.5-10.1); CHLORIDE 104 MMOL/L (99-107); CREATININE 0.63 MG/DL (0.60-1.10); GLUCOSE 107 MG/DL (70-104); POTASSIUM 4.2 MMOL/L (3.5-5.1); SODIUM 139 MMOL/L (135-145); TOTAL CARBON DIOXIDE 26.2 MMOL/L (24-32); TOTAL PROTEIN 5.3 G/DL (6.4-8.2); eGFR > 90 ML/MIN
[2021-07-29 08:56] LABS: PLATELET ESTIMATE NORMAL; TOTAL CELLS COUNTED 100
[2021-07-29 08:57] LABS: ANISOCYTOSIS 1+; MICROCYTOSIS 1+
[2021-07-29] MEDS ORDERED: iohexol 300mg/ml 100ml inj. ONE (08:59)
[2021-07-29 11:00] VITALS: BP 98/44
--- NOTE | 2021-07-29 13:15 | NUR ---
Paged Dr Silva PAGER ID: [phone] MESSAGE: Room 3018A. Oleksandr Lambert. BETO below PIV is now warm, swollen and hard to touch after CT with contrast. I will D/C PIV and start new. JENNY. Corry [phone]
[2021-07-29 15:00] VITALS: BP 94/53
[2021-07-29] MEDS ORDERED: CefTRIAXone/D5W-Rocephin 1gm 50 ML IV ONE (16:00)
[2021-07-29] MEDS ORDERED: azithromycin/NS 500mg/250ml 250 ML IV ONE (16:00)
--- NOTE | 2021-07-29 18:27 | NUR ---
Problems reprioritized. Patient report given, questions answered & plan of care reviewed with ADEOLA Hearn.
[2021-07-29 19:47] VITALS: BP 94/49
[2021-07-29] MEDS: finasteride 5mg tablet PO SCH (21:56)
[2021-07-29] MEDS: Melatonin 3mg tablet PO SCH (21:56)
[2021-07-29 22:00] VITALS: BP 102/49
[2021-07-30 02:00] VITALS: BP 95/45
[2021-07-30] MEDS: ipratropium/albuterol 3ml nebule NEB SCH ×5 (02:53→19:24)
--- NOTE | 2021-07-30 04:17 | NUR ---
Wound care done and urine sent. Pt in stable condition with no complaint of pain. Continue to encourage pt to keep her left swollen arm elevated
[2021-07-30 05:01] LABS: CLARITY,URINE CLOUDY (Clear); COLOR,URINE YELLOW (Yellow); GLUCOSE, URINE NEGATIVE (Neg); KETONES,URINE NEGATIVE (Neg); LEUKOCYTE ESTERASE ,URINE NEGATIVE (Neg); NITRITES, URINE NEGATIVE (Neg); OCCULT BLOOD,URINE LARGE (Neg); PH,URINE 6.5 (4.8-8.0); PROTEIN,URINE TRACE mg/dl (Neg); UA COLLECTION TYPE NON-SPECIFIED; UROBILINOGEN,URINE 0.2 E.U/dL (0.2-1.0)
[2021-07-30 05:10] LABS: MUCUS STRANDS MANY /LPF (Neg); SQUAMOUS EPITHELIAL CELL,UR FEW /LPF (FEW)
[2021-07-30 05:11] LABS: RBC,URINE 50-100 /HPF (0-2)
[2021-07-30 05:23] LABS: URIC ACID CRYSTALS 2+ /HPF (NEGATIVE)
[2021-07-30 05:24] LABS: WBC,URINE 0-4 /HPF (0-4)
[2021-07-30 05:25] LABS: BACTERIA,URINE NONE SEEN /HPF (Neg)
[2021-07-30 06:00] VITALS: BP 94/59
[2021-07-30] MEDS: budesonide 0.5mg/2ml UD nebule IH SCH ×2 (07:08→19:24)
[2021-07-30 07:46] LABS: HEMOGLOBIN 11.8 g/dl (14.0-17.9)
[2021-07-30 07:51] LABS: HEMATOCRIT 37.8 % (42.0-52.0); MEAN CORPUSCULAR HEMOGLOBIN 27.4 PG (27.0-31.0); MEAN CORPUSCULAR HGB CONC 31.3 g/dL (33.0-36.5); MEAN CORPUSCULAR VOLUME 87.6 FL (78-98); MEAN PLATELET VOLUME 9.6 FL (7.4-10.4); PLATELET COUNT 286 X10'3 (140-440); RED BLOOD COUNT 4.31 X10'6 (4.70-6.10); RED CELL DISTRIBUTION WIDTH 18.3 % (11.5-14.5)
[2021-07-30 07:58] LABS: WHITE BLOOD COUNT 69.7 X10'3 (4.5-11.0)
[2021-07-30] MEDS ORDERED: calcium chloride 100 MG/1 ML inj IV ONE (08:00)
[2021-07-30] MEDS ORDERED: sodium bicarbonate (8.4%) inj. 1 MEQ/ML ML ONE (08:00)
[2021-07-30] MEDS ORDERED: epiNEPHrine 0.1mg/ml 10ml syringe ONE (08:00)
[2021-07-30] MEDS: losartan 25mg tablet PO SCH (08:00)
[2021-07-30] MEDS ORDERED: azithromycin 250mg tablet PO SCH (08:00)
[2021-07-30] MEDS: K and/or MAG REPLACEMENT MC SCH ×2 (08:00→20:00)
[2021-07-30] MEDS ORDERED: atropine 0.1mg/ml 10ml syringe ONE (08:00)
[2021-07-30] MEDS ORDERED: CefTRIAXone/D5W-Rocephin 1gm 50 ML IV SCH (08:00)
[2021-07-30] MEDS: docusate sodium 100mg/10ml UD cup OGT SCH ×2 (08:00→20:00)
[2021-07-30] MEDS: metoprolol tartrate 25mg tablet PO SCH ×2 (08:00→20:09)
--- NOTE | 2021-07-30 08:02 | NUR ---
PAGER ID: [phone] MESSAGE: Jessica Lambert room 3018A has a critical WBC of 69.7. Katelyn ext [phone]
[2021-07-30 08:05] LABS: ALANINE AMINOTRANSFERASE 24 U/L (12-78); ALBUMIN 1.6 G/DL (3.4-5.0); ALBUMIN/GLOBULIN RATIO 0.4 (1.1-1.5); ALKALINE PHOSPHATASE 54 IU/L (46-116); ANION GAP 11 (8-16); ASPARTATE AMINO TRANSFERASE 19 U/L (10-37); BILIRUBIN,TOTAL 0.3 MG/DL (0.1-1.0); BLOOD UREA NITROGEN 36 MG/DL (7-18); BUN/CREATININE RATIO 41.4 (5.4-32.0); CALCIUM 8.7 MG/DL (8.5-10.1); CHLORIDE 101 MMOL/L (99-107); CREATININE 0.87 MG/DL (0.60-1.10); GLUCOSE 119 MG/DL (70-104); POTASSIUM 4.1 MMOL/L (3.5-5.1); SODIUM 136 MMOL/L (135-145); TOTAL CARBON DIOXIDE 23.9 MMOL/L (24-32); TOTAL PROTEIN 5.4 G/DL (6.4-8.2); eGFR 84 ML/MIN
[2021-07-30 08:22] LABS: TOTAL CELLS COUNTED 100
[2021-07-30 08:24] LABS: ANISOCYTOSIS 2+; ELLIPTOCYTES FEW; PLATELET ESTIMATE NORMAL; POLYCHROMASIA FEW; STOMATOCYTES FEW; TEAR DROP CELLS FEW
[2021-07-30] MEDS: atorvastatin 10mg tablet PO SCH (08:26)
[2021-07-30] MEDS: sodium chloride 1gm tablet PO SCH ×2 (08:26→14:03)
[2021-07-30] MEDS: lactobacillus rhamnosus 10,000 MMU CELLS/CAPSULE PO SCH ×2 (08:26→20:03)
[2021-07-30] MEDS: tamsulosin 0.4mg capsule PO SCH ×2 (08:26→20:03)
[2021-07-30] MEDS: pantoprazole 40mg Tablet.DR PO SCH (08:27)
[2021-07-30] MEDS: guaiFENesin ER 600mg tablet PO SCH ×2 (08:29→20:03)
[2021-07-30] MEDS: levoTHYROXINE 88mcg tablet PO SCH (08:29)
[2021-07-30] MEDS: amLODIPine 2.5mg tablet PO SCH (08:29)
[2021-07-30] MEDS: methylPREDNISolone sod succ/PF 40mg inj. IV SCH ×2 (08:30→20:03)
--- NOTE | 2021-07-30 08:41 | NUR ---
Paged respiratory for treatment. Patients O2 demand is increasing.
[2021-07-30] MEDS: heparin, porcine 5000 units/ml vial SQ SCH ×2 (08:51→20:03)
[2021-07-30 15:00] VITALS: BP 107/42
--- NOTE | 2021-07-30 18:17 | NUR ---
Problems reprioritized. Patient report given, questions answered & plan of care reviewed with Nadiya.
[2021-07-30 19:00] VITALS: BP 107/55
--- NOTE | 2021-07-30 19:00 | NUR ---
Pt in bed AAOx2 low oxygen saturation noted . HOB elevated, oxygen increase to 15 liters and monitoring in progress. Message sent to respiratory to assess pt. Pt's oxygen saturation improved post respiratory treatment 97% on 15 liters
--- NOTE | 2021-07-30 20:00 | NUR ---
Pt is alert,follows command tolerated his PO medication. PCT at bedside conversing with during PM care.
[2021-07-30] MEDS: Melatonin 3mg tablet PO SCH (20:08)
[2021-07-30 20:09] VITALS: BP_SYST 115
[2021-07-30] MEDS: finasteride 5mg tablet PO SCH (20:13)
--- NOTE | 2021-07-30 20:50 | NUR ---
Low oxygen saturation reported by tech;respiratory at bedside with pt.
--- NOTE | 2021-07-30 21:15 | NUR ---
Rapid response paged, pt is having difficulty breathing with non improvement in his oxygen saturation level. 88%
--- NOTE | 2021-07-30 21:22 | NUR ---
PAGER ID: [phone] MESSAGE: [email or web address], [place]EL[place] العلي ON [phone], [facility]
--- NOTE | 2021-07-30 22:54 | NUR ---
Spoke with Chacho from [facility]; will pharmacy picking technician body around midnight.
--- NOTE | 2021-08-02 10:01 | NUR ---
Pt's Emelyn Lambert called asking if her went to ICU or Rehab. I didn't know anything about this pt, so I looked into pts chart and the only note I found was from 07/30/21 from Yolanda Frias RN, stating pt's body will be picked up from [facility] at midnight. I informed Bryn Archer RN director of this situation, and paged nephrology social worker to inform them of this situation. Paged [employer] Re Oleksandr Lambert . Can you call me please. Pt's called and wants to know if her is in rehab or ICU. Thank you Zee [phone]
--- NOTE | 2021-08-02 12:38 | NUR ---
Spoke to Emelyn Lambert and informed her that Chip was sent to the [facility] in [place] and gave her the number to that mortuary.
== END 2021-07-30 21:31 | DRG 853 ==
LOC: EDBD 15:37 → ER 15:37 → EDBD 19:44 → ED HOLD 19:44 → PCU 3S 06-23 16:28 → ICU 2S 07-14 12:43 → PCU 3S 07-16 23:39 → ICU 2S 07-18 02:48 → PCU 3S 07-20 20:04
PROVIDERS: ADMIT Family Medicine; ATTEND Family Medicine
PROC: B32T1ZZ Computerized Tomography (CT Scan) of Left Pulmonary Artery using Low Osmolar Contrast (ICD-10-PCS; 2021-06-23)
PROC: B3201ZZ Computerized Tomography (CT Scan) of Thoracic Aorta using Low Osmolar Contrast (ICD-10-PCS; 2021-06-23)
PROC: B32S1ZZ Computerized Tomography (CT Scan) of Right Pulmonary Artery using Low Osmolar Contrast (ICD-10-PCS; 2021-06-23)
PROC: 5A0955A Assistance with Respiratory Ventilation, Greater than 96 Consecutive Hours, High Flow/Velocity Cannula (ICD-10-PCS; 2021-06-24)
PROC: BW211ZZ Computerized Tomography (CT Scan) of Abdomen and Pelvis using Low Osmolar Contrast (ICD-10-PCS; 2021-06-24)
PROC: 5A0945A Assistance with Respiratory Ventilation, 24-96 Consecutive Hours, High Flow/Velocity Cannula (ICD-10-PCS; 2021-07-01)
PROC: B32T1ZZ Computerized Tomography (CT Scan) of Left Pulmonary Artery using Low Osmolar Contrast (ICD-10-PCS; 2021-07-02)
PROC: B3201ZZ Computerized Tomography (CT Scan) of Thoracic Aorta using Low Osmolar Contrast (ICD-10-PCS; 2021-07-02)
PROC: B32S1ZZ Computerized Tomography (CT Scan) of Right Pulmonary Artery using Low Osmolar Contrast (ICD-10-PCS; 2021-07-02)
PROC: 0BBL3ZX Excision of Left Lung, Percutaneous Approach, Diagnostic (ICD-10-PCS; 2021-07-03)
PROC: 5A0935A Assistance with Respiratory Ventilation, Less than 24 Consecutive Hours, High Flow/Velocity Cannula (ICD-10-PCS; 2021-07-05)
PROC: 5A0935A Assistance with Respiratory Ventilation, Less than 24 Consecutive Hours, High Flow/Velocity Cannula (ICD-10-PCS; 2021-07-06)
PROC: 5A0935A Assistance with Respiratory Ventilation, Less than 24 Consecutive Hours, High Flow/Velocity Cannula (ICD-10-PCS; 2021-07-07)
PROC: 5A0935A Assistance with Respiratory Ventilation, Less than 24 Consecutive Hours, High Flow/Velocity Cannula (ICD-10-PCS; 2021-07-08)
PROC: 5A0935A Assistance with Respiratory Ventilation, Less than 24 Consecutive Hours, High Flow/Velocity Cannula (ICD-10-PCS; 2021-07-09)
PROC: 5A0935A Assistance with Respiratory Ventilation, Less than 24 Consecutive Hours, High Flow/Velocity Cannula (ICD-10-PCS; 2021-07-10)
PROC: 0W2BX0Z Change Drainage Device in Left Pleural Cavity, External Approach (ICD-10-PCS; 2021-07-10)
PROC: BW211ZZ Computerized Tomography (CT Scan) of Abdomen and Pelvis using Low Osmolar Contrast (ICD-10-PCS; 2021-07-10)
PROC: 8E0W4CZ Robotic Assisted Procedure of Trunk Region, Percutaneous Endoscopic Approach (ICD-10-PCS; 2021-07-14)
PROC: 0BNP4ZZ Release Left Pleura, Percutaneous Endoscopic Approach (ICD-10-PCS; 2021-07-14)
PROC: 07B74ZZ Excision of Thorax Lymphatic, Percutaneous Endoscopic Approach (ICD-10-PCS; 2021-07-14)
PROC: 3E0L4GC Introduction of Other Therapeutic Substance into Pleural Cavity, Percutaneous Endoscopic Approach (ICD-10-PCS; 2021-07-14)
PROC: 0W9B40Z Drainage of Left Pleural Cavity with Drainage Device, Percutaneous Endoscopic Approach (ICD-10-PCS; 2021-07-14)
PROC: 0BBJ3ZX Excision of Left Lower Lung Lobe, Percutaneous Approach, Diagnostic (ICD-10-PCS; principal; 2021-07-14 14:39)
PROC: 5A0935A Assistance with Respiratory Ventilation, Less than 24 Consecutive Hours, High Flow/Velocity Cannula (ICD-10-PCS; 2021-07-24)
PROC: 0W9B30Z Drainage of Left Pleural Cavity with Drainage Device, Percutaneous Approach (ICD-10-PCS; 2021-07-24)
PROC: 5A0945A Assistance with Respiratory Ventilation, 24-96 Consecutive Hours, High Flow/Velocity Cannula (ICD-10-PCS; 2021-07-25)
PROC: 5A0935A Assistance with Respiratory Ventilation, Less than 24 Consecutive Hours, High Flow/Velocity Cannula (ICD-10-PCS; 2021-07-28)
PROC: 5A0935A Assistance with Respiratory Ventilation, Less than 24 Consecutive Hours, High Flow/Velocity Cannula (ICD-10-PCS; 2021-07-29)
PROC: BW241ZZ Computerized Tomography (CT Scan) of Chest and Abdomen using Low Osmolar Contrast (ICD-10-PCS; 2021-07-29)
PROC: 5A0935A Assistance with Respiratory Ventilation, Less than 24 Consecutive Hours, High Flow/Velocity Cannula (ICD-10-PCS; 2021-07-30)
PROC: 5A12012 Performance of Cardiac Output, Single, Manual (ICD-10-PCS; 2021-07-30)
DX: A41.9 Sepsis, unspecified organism (principal); J18.9 Pneumonia, unspecified organism; J96.01 Acute respiratory failure with hypoxia; J93.0 Spontaneous tension pneumothorax; E87.2 Acidosis; J90 Pleural effusion, not elsewhere classified; E87.1 Hypo-osmolality and hyponatremia; J93.82 Other air leak; R64 Cachexia; R44.3 Hallucinations, unspecified; J94.8 Other specified pleural conditions; E86.0 Dehydration; D18.03 Hemangioma of intra-abdominal structures; K21.9 Gastro-esophageal reflux disease without esophagitis; R91.8 Other nonspecific abnormal finding of lung field; E03.9 Hypothyroidism, unspecified; E27.9 Disorder of adrenal gland, unspecified; I10 Essential (primary) hypertension; I46.9 Cardiac arrest, cause unspecified; I49.01 Ventricular fibrillation; J43.0 Unilateral pulmonary emphysema [MacLeod's syndrome]; N40.0 Benign prostatic hyperplasia without lower urinary tract symptoms; Z20.822 Contact with and (suspected) exposure to COVID-19; Z85.118 Personal history of other malignant neoplasm of bronchus and lung; Z87.891 Personal history of nicotine dependence; Z68.20 Body mass index [BMI] 20.0-20.9, adult; Z88.0 Allergy status to penicillin; Z88.8 Allergy status to other drugs, medicaments and biological substances; Z79.899 Other long term (current) drug therapy
CPT/HCPCS: 32408; 32557; 36415; 36600; 71045; 71250; 71260; 71275; 74170; 74178; 76770; 76937; 77012; 80048; 80053; 80061; 80202; 81001; 82550; 82803; 82948; 83036; 83605; 83615; 83690; 83735; 83880; 84100; 84145; 84443; 85007; 85018; 85025; 85379; 85610; 85730; 86140; 86885; 86900; 86901; 87040; 87070; 87081; 87635; 88173; 88184; 88185; 88305; 88307; 88342; 88360; 92508; 92616; 92950; 93005; 93306; 94002; 94003; 94640; 94664; 94667; 94668; 94760; 96365; 96366; 96368; 97110; 97116; 97161; 97530; 99152; 99153; 99285; A4618; A6258; A6449; A7000; A7048; C1758; C9250; C9290; C9803; G0378; J0171; J0456; J0461; J0692; J0696; J1644; J2001; J2060; J2250; J2270; J2370; J2405; J2704; J2920; J2930; J3010; J3370; J3490; J7030; J7040; J7120; J7626; P9045; Q0163; Q9963; Q9967